=== PATIENT | female | born 1955 | race Caucasian/White ===

== ENCOUNTER → 2018-07-02 | Outpatient (CLI) | payer MEDICAID ==
[~2018-07-02] MED LIST: ALDACTONE25 MG PO; ALL DAY ALLERGY10 M3 PO; AMITRIPTYLINE H25 M2 PO; ANTACID325 MG PO; ASPIR 8181 MG PO; CARVEDILOL12.5 MG PO; COZAAR 50 MG TA50 M2 PO; CRESTOR10 MG PO; CRESTOR20 MG PO; ESTRADIOL 1 MG T1 M1 TOP; FLEXERIL PO; FLONASE 0.05%50 MCG NASAL; HYDROCODONE-AP1 EAC6 PO; LANTUS SC; LINZESS290 MCG PO; LIPITOR 20 MG T20 M1 PO; MOVANTIK25 MG PO; MULTI VITAMIN1 EACH PO; NEPHROCAPS SOFT1 CAP PO; NOVOLOG100 UNIT/1 SUBQ; OMEPRAZOLE20 M2 PO; OXYCODONE HCL 55 MG PO; OXYCODONE HCL15 MG PO; OXYCONTIN20 M1 PO; PERCOCET 10-321 EACH PO; PLAVIX 75 MG TA75 M1 PO; PROTONIX40 M2 PO; SINGULAIR 10 MG10 M1 PO; TIZANIDINE HCL4 MG PO; VITAMIN D1000 UNI1 PO; VITAMIN D350000 UNIT PO; ZANAFLEX4 M1 PO; ZOFRAN ODT4 MG PO
== END ==
LOC: M.ULTRA 09:56
DX: I65.23 Occlusion and stenosis of bilateral carotid arteries (principal); I10 Essential (primary) hypertension; Z88.0 Allergy status to penicillin

== ENCOUNTER 2018-07-29 13:20 | Observation (INO) | payer MEDICAID ==
[~2018-07-29] VITALS: Ht 152.4 cm; Wt 54.2 kg
[~2018-07-29 13:20] MED LIST changes: -CRESTOR20 MG PO; -PROTONIX40 M2 PO; -SINGULAIR 10 MG10 M1 PO; -TIZANIDINE HCL4 MG PO; -VITAMIN D350000 UNIT PO
[2018-07-29 13:22] VITALS: BP 162/77
[2018-07-29] MEDS ORDERED: CRESTOR20 MG PO (13:40)
[2018-07-29] MEDS ORDERED: PROTONIX40 M2 PO (13:46)
[2018-07-29] MEDS ORDERED: SINGULAIR 10 MG10 M1 PO (13:46)
[2018-07-29 13:49] LABS: ABSOLUTE BASOPHILS 0.1 thou/uL (0.0-0.2); ABSOLUTE EOSINOPHILS 0.2 thou/uL (0.0-0.7); ABSOLUTE LYMPHOCYTES 1.6 thou/uL (0.8-5.3); ABSOLUTE MONOCYTES 0.8 thou/uL (0.0-1.2); ABSOLUTE NEUTROPHILS 8.7 thou/uL (1.6-8.1); BASOPHILS 0.7 %; EOSINOPHILS 1.4 %; HEMATOCRIT 34.1 % (37.0-47.0); HEMOGLOBIN 11.2 gm/dL (12.0-15.0); LYMPHOCYTES 13.7 %; MCH 30.9 pg (26.0-34.0); MCHC 32.9 g/dL (28.0-37.0); MCV 93.8 fL (80.0-100.0); MONOCYTES 7.4 %; MPV 7.5 fl. (7.2-11.1); NUCLEATED RBCS 0 /100WBC; PLATELET COUNT* 308 thou/uL (150-400); POLYS 76.8 %; RBC 3.64 mil/uL (4.20-5.00); RDW-CV 14.2 % (10.5-14.5); WBC 11.4 thou/uL (4.0-11.0)
[2018-07-29 13:55] LABS: ANION GAP 5 mmol/L (7-16); BUN 38 mg/dL (7-18); CALCIUM 8.4 mg/dL (8.5-10.1); CHLORIDE 97 mmol/L (98-107); CO2 30 mmol/L (21-32); CREATININE 6.6 mg/dL (0.6-1.3); GLUCOSE 68 mg/dL (70-99); POTASSIUM 4.4 mmol/L (3.5-5.1); SODIUM 132 mmol/L (136-145)
[2018-07-29 14:02] LABS: ALBUMIN 1.7 g/dL (3.4-5.0); ALKALINE PHOSPHATASE 81 U/L (46-116); SGOT 15 U/L (15-37); SGPT 12 U/L (30-65); TOTAL BILIRUBIN 0.1 mg/dL (<0.1-1.0); TOTAL PROTEIN 5.9 g/dL (6.4-8.2); TROPONIN-I LEVEL <0.06 ng/mL (<0.06)
[2018-07-29 14:30] VITALS: BP 158/84
[2018-07-29 15:49] VITALS: BP 165/79
[2018-07-29 19:45] VITALS: BP 154/67
[2018-07-30] VITALS: BP 147/62
[2018-07-30 04:00] VITALS: BP 163/47
[2018-07-30 07:28] LABS: URINE BILIRUBIN NEGATIVE (Negative); URINE BLOOD NEGATIVE (Negative); URINE CLARITY CLEAR; URINE COLOR YELLOW; URINE GLUCOSE-RANDOM 2+ (Negative); URINE KETONES NEGATIVE (Negative); URINE LEUKOCYTES-REFLEX NEGATIVE (Negative); URINE NITRITE-REFLEX NEGATIVE (Negative); URINE PROTEIN 3+ (Negative); URINE UROBILINOGEN 0.2 E.U./dl (0.2-1.0)
[2018-07-30 08:00] VITALS: BP 176/81
[2018-07-30 11:38] VITALS: BP 176/84
[2018-07-30 12:49] VITALS: BP 177/56
[2018-07-30 15:00] VITALS: BP 176/84
--- NOTE | 2018-07-30 17:54 | EKG ---
[place] [address] ELECTROCARDIOGRAM REPORT Name: AUBREE ECKERT Room: [address] M.R.#: [id number] Admission: 07/29/18 Attend Phys: Bernardo Guzman Discharge: Date of : 57 Report #: [id number] THIS REPORT FOR: //name// [facility] ED Test Date: 2018-07-29 Test Time: 14:03:09 Pat Name: AUBREE ECKERT Department: Room: [facility] Gender: F Screen Roller: [facility] : 1955 Requested By: Xu Horta Order Number: [id number] MD: Zachary Awad Measurements Intervals [place] Rate: 63 P: 37 [place]: 191 QRS: 15 QRSD: 110 T: 51 QT: 459 QTc: 470 Interpretive Statements Sinus rhythm Compared to ECG 08/02/2016 15:54:58 Left ventricular hypertrophy now present Electronically Signed On 07-30-2018 17:54:19 CDT by Zachary Awad [email or web address] <ELECTRONICALLY SIGNED> By: Zachary Awad MD, [facility] 07/30/18 1754 1403 02 Zachary Awad MD, FAC /EPI
--- NOTE | 2018-07-30 17:57 | EKG ---
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
--- NOTE | 2018-07-31 10:29 | CON ---
[address] [address] CONSULTATION Name: AUBREE ECKERT Room: [address] Emmanuel Arroyo#: [id number] Admission: 07/29/18 Attend Phys: Bernardo Guzman Discharge: 07/30/18 Date of : 57 Report #: [id number] THIS REPORT FOR: //name// CC: Juan M Kathleen CONSULTING PHYSICIAN: Franc Kathleen DO REASON FOR CONSULTATION: End-stage kidney disease. HISTORY OF PRESENT ILLNESS: A 63-year-old female admitted with a syncopal episode in the setting of hyperglycemia. She is on peritoneal dialysis, dialyzes every night under the care of Dr. Aldana. She has been on peritoneal dialysis since April. No history of peritonitis. She is currently not on the transplant list. She denies any constipation. Her peritoneal dialysis at home has been going well. She usually dialyzes for 9 hours at night and does 5 exchanges. She is hoping to go home soon. REVIEW OF SYSTEMS: Constitutional, psych, heme, eyes, ENT, respiratory, cardiac, GI, , endocrine, all negative except as documented above. PAST MEDICAL HISTORY: End-stage kidney disease, diabetes type 2, hypertension, osteoporosis, history of bilateral fem-pop in 2002, cataracts, right hip surgery. FAMILY HISTORY: Positive for diabetes. SOCIAL HISTORY: Former smoker. PHYSICAL EXAMINATION: VITAL SIGNS: Blood pressure is 163/47, pulse 79, temperature 36.9. GENERAL: No acute distress. EYES: Extraocular movements intact. EARS: Externally normal. CARDIOVASCULAR: Regular rate. LUNGS: No crackles. ABDOMEN: Soft, nontender. PD catheter secured without any tenderness around the exit site. No rebound or guarding. LYMPHATICS: No significant pitting edema. PSYCHIATRIC: Awake, alert, oriented. LABORATORY DATA: White cell count 9.4, hemoglobin 11.2, platelets 308. Sodium 132, potassium 4.4, chloride 97, bicarbonate 30, BUN 38, creatinine 6.6, glucose 68, calcium 8.4, albumin 1.7. ASSESSMENT: 1. End-stage kidney disease, on peritoneal dialysis [place] [address] CONSULTATION Name: AUBREE ECKERT Room: [address] Dina#: [id number] Admission: 07/29/18 Attend Phys: Bernardo Guzman Discharge: 07/30/18 Date of : 57 Report #: [id number] Aldana. 2. Hyponatremia. 3. Severe hypoalbuminemia. 4. Diabetes. 5. History of hypertension. PLAN: 1. No dietary protein restriction. 2. She did not receive her peritoneal dialysis last night. Should she remains inpatient, we will resume her peritoneal dialysis tonight. We will use her chronic orders. We will adjust dextrose if she needs more fluid removed, but we will monitor closely for the time being. 3. Should she discharge this evening, she can hook herself up to peritoneal dialysis tonight and follow up with her regular maintainer sewer and waterworks as an outpatient. We will follow closely while inpatient. Thank you for requesting my opinion in the care and management of this patient. <ELECTRONICALLY SIGNED> By: Aydee Sands MD 07/31/18 1029 1028 [id number] Sands MD /nt
[2018-07-31 15:34] LABS: SQUAMOUS 0-3 Few /LPF (0-3); URINE RBC 0-2 Rare /HPF (0-2)
[2018-07-31 15:35] LABS: CRYSTALS None Seen /LPF (None Seen); FINE GRANULAR CASTS 0-3 Few /LPF (None Seen)
[2018-07-31 15:36] LABS: MUCUS 0-3 Light strn/LPF (None Seen)
[2018-07-31 15:45] LABS: URINE WBC-REFLEX 0-5 Rare /HPF (0-5)
== END 2018-07-30 16:00 | disposition home or self-care (01) ==
LOC: M.ERS 13:20 → M.2W 15:27 → M.TBA-ER 15:27 → M.2W 15:27
PROVIDERS: Emergency Medicine; ADMIT Internal Medicine
DX: E11.649 Type 2 diabetes mellitus with hypoglycemia without coma (principal); I12.0 Hypertensive chronic kidney disease with stage 5 chronic kidney disease or end stage renal disease; E11.22 Type 2 diabetes mellitus with diabetic chronic kidney disease; N18.5 Chronic kidney disease, stage 5; R55 Syncope and collapse; E86.0 Dehydration; R19.7 Diarrhea, unspecified; M81.0 Age-related osteoporosis without current pathological fracture; Z87.891 Personal history of nicotine dependence; Z86.718 Personal history of other venous thrombosis and embolism; Z98.890 Other specified postprocedural states; Z79.4 Long term (current) use of insulin; Z99.2 Dependence on renal dialysis

== ENCOUNTER 2018-10-09 12:51 | Emergency (ER) | payer MEDICAID ==
[~2018-10-09] VITALS: Ht 152.4 cm; Wt 52.6 kg
[~2018-10-09 12:51] MED LIST changes: +CRESTOR20 MG PO; +PROTONIX40 M2 PO; +SINGULAIR 10 MG10 M1 PO
[2018-10-09] MEDS ORDERED: VITAMIN D350000 UNIT PO (13:02)
[2018-10-09 13:39] LABS: HEMATOCRIT 23.5 % (37.0-47.0); HEMOGLOBIN 7.7 gm/dL (12.0-15.0); MCH 31.6 pg (26.0-34.0); MCHC 32.9 g/dL (28.0-37.0); MPV 7.4 fl. (7.2-11.1); NUCLEATED RBCS 0 /100WBC; PLATELET COUNT* 301 thou/uL (150-400); RBC 2.45 mil/uL (4.20-5.00); RDW-CV 15.1 % (10.5-14.5); WBC 15.6 thou/uL (4.0-11.0)
[2018-10-09 13:49] LABS: CALCIUM 8.3 mg/dL (8.5-10.1); CREATININE 7.9 mg/dL (0.6-1.3)
[2018-10-09 13:53] LABS: ALBUMIN 2.2 g/dL (3.4-5.0); TOTAL BILIRUBIN 0.4 mg/dL (<0.1-1.0); TOTAL PROTEIN 6.2 g/dL (6.4-8.2)
[2018-10-09 14:02] LABS: URINE BILIRUBIN NEGATIVE (Negative); URINE BLOOD 1+ (Negative); URINE CLARITY CLEAR; URINE COLOR YELLOW; URINE GLUCOSE-RANDOM 1+ (Negative); URINE KETONES NEGATIVE (Negative); URINE LEUKOCYTES-REFLEX NEGATIVE (Negative); URINE NITRITE-REFLEX NEGATIVE (Negative); URINE PROTEIN 3+ (Negative); URINE UROBILINOGEN 0.2 E.U./dl (0.2-1.0)
[2018-10-09 14:07] LABS: SQUAMOUS 0-3 Few /LPF (0-3); URINE WBC-REFLEX 0-5 Rare /HPF (0-5)
[2018-10-09 14:08] LABS: BACTERIA-REFLEX None Seen /HPF (None Seen); CASTS None Seen /LPF (None Seen); CRYSTALS None Seen /LPF (None Seen); URINE RBC 0-2 Rare /HPF (0-2)
[2018-10-09 14:12] LABS: ABSOLUTE EOSINOPHILS 0.6 thou/uL (0.0-0.7); ABSOLUTE LYMPHOCYTES 1.6 thou/uL (0.8-5.3); ABSOLUTE MONOCYTES 0.2 thou/uL (0.0-1.2); ABSOLUTE NEUTROPHILS 13.3 thou/uL (1.6-8.1); PLATELET ESTIMATE ADEQUATE
[2018-10-09 15:28] VITALS: BP 177/84
== END 2018-10-09 15:29 | disposition home or self-care (01) ==
LOC: M.ERS 12:51
PROVIDERS: Physician Assistant
DX: R19.7 Diarrhea, unspecified (principal); R10.31 Right lower quadrant pain; M81.0 Age-related osteoporosis without current pathological fracture; I12.0 Hypertensive chronic kidney disease with stage 5 chronic kidney disease or end stage renal disease; E11.22 Type 2 diabetes mellitus with diabetic chronic kidney disease; N18.5 Chronic kidney disease, stage 5; F17.210 Nicotine dependence, cigarettes, uncomplicated; Z99.2 Dependence on renal dialysis; Z79.4 Long term (current) use of insulin; Z86.718 Personal history of other venous thrombosis and embolism; Z88.0 Allergy status to penicillin; Z88.6 Allergy status to analgesic agent

== ENCOUNTER 2018-10-10 22:28 | Inpatient (IN) | payer MEDICAID ==
[~2018-10-10] VITALS: Ht 152.4 cm; Wt 58.0 kg
[~2018-10-10 22:28] MED LIST changes: +VITAMIN D350000 UNIT PO
[2018-10-10 22:33] VITALS: BP 187/92
--- NOTE | 2018-10-10 23:04 | NUR ---
PER DR. DOMINGUEZ REQUEST- PULL 2 MG DILAUDID, GIVE 1MG BUT DO NOT WASTE 2ND MG YET INCASE PT NEEDS REPEAT DOSE.
[2018-10-10 23:10] LABS: ANION GAP 18 mmol/L (7-16); BUN 62 mg/dL (7-18); CALCIUM 7.9 mg/dL (8.5-10.1); CHLORIDE 94 mmol/L (98-107); CO2 16 mmol/L (21-32); GLUCOSE 392 mg/dL (70-99); POTASSIUM 5.1 mmol/L (3.5-5.1); SODIUM 128 mmol/L (136-145)
[2018-10-10 23:13] LABS: PROTIME 9.9 Seconds (9.20-11.50)
[2018-10-10 23:21] LABS: ALBUMIN 2.3 g/dL (3.4-5.0); ALKALINE PHOSPHATASE 88 U/L (46-116); NT-PRO BRAIN NAT PEPTIDE 32492 pg/mL (<300); SGOT 14 U/L (15-37); SGPT 13 U/L (30-65); TOTAL BILIRUBIN 0.3 mg/dL (<0.1-1.0); TOTAL PROTEIN 6.7 g/dL (6.4-8.2); TROPONIN-I LEVEL <0.06 ng/mL (<0.06)
[2018-10-10 23:22] LABS: ABSOLUTE BASOPHILS 0.1 thou/uL (0.0-0.2); ABSOLUTE EOSINOPHILS 0.1 thou/uL (0.0-0.7); ABSOLUTE LYMPHOCYTES 1.3 thou/uL (0.8-5.3); ABSOLUTE MONOCYTES 0.8 thou/uL (0.0-1.2); ABSOLUTE NEUTROPHILS 14.8 thou/uL (1.6-8.1); BASOPHILS 0.3 %; EOSINOPHILS 0.8 %; HEMATOCRIT 22.9 % (37.0-47.0); HEMOGLOBIN 7.2 gm/dL (12.0-15.0); LYMPHOCYTES 7.8 %; MCHC 31.7 g/dL (28.0-37.0); MCV 97.8 fL (80.0-100.0); MONOCYTES 4.8 %; MPV 8.2 fl. (7.2-11.1); NUCLEATED RBCS 0 /100WBC; PLATELET COUNT* 312 thou/uL (150-400); POLYS 86.3 %; RBC 2.34 mil/uL (4.20-5.00); RDW-CV 15.4 % (10.5-14.5); WBC 17.1 thou/uL (4.0-11.0)
[2018-10-11 02:55] VITALS: BP 146/70
[2018-10-11 03:30] VITALS: BP 129/61
[2018-10-11] MEDS ORDERED: TIZANIDINE HCL4 MG PO (04:51)
--- NOTE | 2018-10-11 05:02 | NUR ---
RECEIVED REPORT FROM FORGING OPERATOR ANJELICA AT 0251. PT ARRIVED TO UNIT AT 0315. PT ON DOOR TO DOOR SALESPERSON TRACING SINUS RHYTHM. NURSING ASSESSMENT COMPLETED. PT ON 2L NC, BS 457. DR. ABRAHAM NOTIFIED, NEW ORDER RECEIVED. HOURLY ROUNDING COMPLETED. FALL PRECAUTIONS IN PLACE. CALL LIGHT WITHIN REACH. NEGATIVE SEPSIS SCREEN AT 0400.
[2018-10-11 10:00] VITALS: BP 148/67
[2018-10-11 11:20] LABS: URINE BILIRUBIN NEGATIVE (Negative); URINE BLOOD TRACE (Negative); URINE CLARITY CLEAR; URINE COLOR YELLOW; URINE GLUCOSE-RANDOM 2+ (Negative); URINE KETONES NEGATIVE (Negative); URINE LEUKOCYTES-REFLEX NEGATIVE (Negative); URINE NITRITE-REFLEX NEGATIVE (Negative); URINE PROTEIN 3+ (Negative); URINE UROBILINOGEN 0.2 E.U./dl (0.2-1.0)
[2018-10-11 11:33] LABS: BACTERIA-REFLEX 1-9 Few /HPF (None Seen); HYALINE CASTS 0-3 Few /LPF (None Seen); SQUAMOUS >10 Many /LPF (0-3)
[2018-10-11 11:37] LABS: CRYSTALS None Seen /LPF (None Seen); MUCUS None Seen strn/LPF (None Seen); URINE RBC 0-2 Rare /HPF (0-2); URINE WBC-REFLEX 0-5 Rare /HPF (0-5)
[2018-10-11 12:00] VITALS: BP 151/68
[2018-10-11 16:00] VITALS: BP 185/86
--- NOTE | 2018-10-11 18:54 | NUR ---
ASSUMED PT CARE AT 0700 PT IS ALERT AND ORIENTED X 4 PT C/O PAIN PAGED PHYSICIAN FOR ORDERS FOR PAIN MEDS OBTAINED ORDERS GAVE PT PO PAIN MEDS WHICH HELP PT, PT ABDOMEN DISTENDED AWAITING NEPHROLOGY, PT IS SR ON THE MONITOR, NEPHROLOGY SEES PT OBTAIN ORDERS FOR PERITNEAL DIALYSIS WITH ANTIBIOTICS ADDED TO FLUID PT HAD DIALYSIS NURSE WILL BE BACK THIS EVENING TO DRAIN PT CATHETER SENT PT FLUID FROM ORIGINAL DRAIN TO LAB, CRITICAL TROPONIN CALLED TO THIS NURSE WHO NOTIFIED PHYSICIAN AND SENIOR CONSTRUCTION PROJECT MANAGER WHO ORDERED FOR PT TO HAVE STRESS TEST SATURDAY, PT THIS EVENING C/O PAIN AND SOA ABDOMEN IS DISTENDED PT O2 SAT IS 97 ON 3L/NC GAVE PT FENTANYL AND OBTAINED EKG WHICH SHOWED ST, THIS NURSE NOTIFIED THAT PT IS VOMITING PAGED PHYSICIAN AND OBTAINED ORDER FOR ZOFRAN WHICH THIS NURSE GAVE WILL CONTINUE TO MONITOR
[2018-10-11 19:28] LABS: BF RBC <1000 /mm3; TOTAL CELL COUNT 103 /mm3
[2018-10-11 19:29] LABS: TOTAL VOLUME 2000 ml
[2018-10-11 19:30] LABS: CLARITY CLEAR; COLOR YELLOW
[2018-10-11 19:45] VITALS: BP 180/92
[2018-10-11 20:38] LABS: BF LYMPHOCYTES 24 %; BF MONOCYTES 18 %; BF POLYS 58 %; BF TISSUE 2 /100 WBC
[2018-10-11 20:40] LABS: SOURCE PERITONEAL
[2018-10-12] VITALS: BP 170/91
[2018-10-12 04:59] VITALS: BP 166/90
[2018-10-12 05:04] LABS: HEMATOCRIT 21.8 % (37.0-47.0); HEMOGLOBIN 7.2 gm/dL (12.0-15.0); MCH 31.7 pg (26.0-34.0); MCHC 32.8 g/dL (28.0-37.0); MCV 96.6 fL (80.0-100.0); MPV 8.2 fl. (7.2-11.1); NUCLEATED RBCS 0 /100WBC; PLATELET COUNT* 255 thou/uL (150-400); RBC 2.26 mil/uL (4.20-5.00); RDW-CV 15.8 % (10.5-14.5); WBC 15.6 thou/uL (4.0-11.0)
[2018-10-12 05:20] LABS: CALCIUM 7.8 mg/dL (8.5-10.1); CREATININE 7.2 mg/dL (0.6-1.3); MAGNESIUM 1.8 mg/dL (1.8-2.4); PHOSPHORUS* 7.1 mg/dL (2.5-4.9); POTASSIUM 4.7 mmol/L (3.5-5.1)
--- NOTE | 2018-10-12 05:22 | NUR ---
ASSUMED PT CARE AT 1930, PT IS A&OX4, PT C/O BACK AND ABD PAIN AT START OF SHIFT. PAIN THEN TURNED INTO 10/10 CHEST PAIN. PAIN MEDICATIONS GIVEN PER JAN. EKG OBTAINED, PT REFUSED NITRO DUE TO REBOUND HEADACHE. PT IS TRACING ST ON THE MONITOR, ON 3L NC. PT IS ON PERITONEAL DIALYSIS IN PLACE. PT STATES THAT DURING "FILL AND DWELL" PERIOD THE PAIN IS WORSE. PT IS ON A 1500 FLUID RESTRICTION THAT SHE IS COMPLIANT WITH. BED IN LOW POSITION, CALL LIGHT IN REACH, BED ALARM ON. YELLOW ARM BAND AND SOCKS IN PLACE. HOURLY ROUNDING COMPLETED FOR PT SAFETY.
[2018-10-12 05:24] LABS: ALKALINE PHOSPHATASE 78 U/L (46-116); ANION GAP 12 mmol/L (7-16); BUN 55 mg/dL (7-18); CALCIUM 7.7 mg/dL (8.5-10.1); CHLORIDE 95 mmol/L (98-107); CHOLESTEROL 118 mg/dL (<200); CO2 23 mmol/L (21-32); CREATININE 7.2 mg/dL (0.6-1.3); GLUCOSE 296 mg/dL (70-99); HDL CHOLESTEROL 61 mg/dL (>40); LDL CHOLESTEROL 27 mg/dL (<100); POTASSIUM 4.6 mmol/L (3.5-5.1); SGOT 17 U/L (15-37); SGPT 11 U/L (30-65); SODIUM 130 mmol/L (136-145); TC:HDL 1.9 Ratio (Not establshd); TOTAL BILIRUBIN 0.2 mg/dL (<0.1-1.0); TRIGLYCERIDE 153 mg/dL (<150); VLDL 31 mg/dL (<40)
[2018-10-12 05:35] LABS: SERUM ASSESSMENT Clear
[2018-10-12 08:07] LABS: ABSOLUTE LYMPHOCYTES 0.8 thou/uL (0.8-5.3); ABSOLUTE MONOCYTES 0.6 thou/uL (0.0-1.2); ABSOLUTE NEUTROPHILS 14.2 thou/uL (1.6-8.1)
[2018-10-12 08:08] LABS: HYPOCHROMASIA 2+; PLATELET ESTIMATE ADEQUATE
[2018-10-12 08:09] LABS: MACROCYTES 2+
[2018-10-12 08:45] VITALS: BP 155/70
--- NOTE | 2018-10-12 10:15 | EKG ---
[place] [address] ELECTROCARDIOGRAM REPORT Name: AUBREE ECKERT Room: [address] ADM IN M.R.#: [id number] Admission: 10/11/18 Attend Phys: Glendy Brown MD Discharge: Date of : 57 Report #: [id number] THIS REPORT FOR: //name// [facility] ED Test Date: 2018-10-10 Test Time: 22:48:15 Pat Name: AUBREE ECKERT Department: Room: [facility] Gender: F Integrated Marketing Specialist: : 1955 Requested By: Luiza Langley Order Number: [id number] MD: Zachary Awad Measurements Intervals [place] Rate: 85 P: 46 [place]: 178 QRS: 45 QRSD: 107 T: 11 QT: 446 QTc: 531 Interpretive Statements Sinus rhythm Probable left atrial enlargement Borderline ST depression, lateral leads Prolonged QT interval Compared to ECG 07/29/2018 19:56:26 ST (T wave) deviation now present Prolonged QT interval now present Electronically Signed On 10-12-2018 10:14:55 DAY CARE HOME MOTHER by Zachary Awad [email or web address] <ELECTRONICALLY SIGNED> By: Zachary Awad MD, FACC 10/12/18 1014 2248 2248 Zachary Awad MD, FAC /EPI
--- NOTE | 2018-10-12 10:21 | EKG ---
[place] [address] ELECTROCARDIOGRAM REPORT Name: AUBREE ECKERT Room: [address] ADM IN M.R.#: [id number] Admission: 10/11/18 Attend Phys: Glendy Brown MD Discharge: Date of : 57 Report #: [id number] THIS REPORT FOR: //name// [facility] Test Date: 2018-10-11 Test Time: 09:59:59 Pat Name: AUBREE ECKERT Department: Room: [address] Gender: F Artillery Specialist: : 1955 Requested By: Glendy Brown Order Number: [id number] Reading MD: Zachary Awad Measurements Intervals [place] Rate: 75 P: 37 PA: 178 QRS: 34 QRSD: 104 T: 111 QT: 428 QTc: 479 Interpretive Statements Sinus rhythm Probable left atrial enlargement Borderline repolarization abnormality Compared to ECG 07/29/2018 19:56:26 No significant changes Electronically Signed On 10-12-2018 10:20:45 INDUSTRIAL RELATIONS MANAGER by Zachary Awad [email or web address] <ELECTRONICALLY SIGNED> By: Zachary Awad MD, [facility] 10/12/18 1020 8 8 Zachary Awad MD, FACC /EPI
--- NOTE | 2018-10-12 10:23 | EKG ---
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 : 1955 Requested By: Terry Red Order Number: [id number] Clement MD: Zachary Awad Measurements Intervals [place] Rate: 101 P: 45 MT: 168 QRS: 65 QRSD: 108 T: -23 QT: 372 QTc: 483 Interpretive Statements Sinus tachycardia Left atrial enlargement Nonspecific repol abnormality, diffuse leads Baseline wander in lead(s) V2 Compared to ECG 07/29/2018 19:56:26 Early repolarization now present Sinus rhythm no longer present Electronically Signed On 10-12-2018 10:23:30 PIGMENT PUMPER by Zachary Awad [email or web address] <ELECTRONICALLY SIGNED> By: Zachary Awad MD, FACC 10/12/18 1023 1833 183 Zachary Awad MD, FACC /EPI
--- NOTE | 2018-10-12 10:24 | EKG ---
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: : 1955 Requested By: Glendy Brown Order Number: [id number] Clement MD: Zachary Awad Measurements Intervals [place] Rate: 106 P: 43 DE: 156 QRS: 47 QRSD: 111 T: -47 QT: 383 QTc: 509 Interpretive Statements Sinus tachycardia Probable left atrial enlargement LVH with secondary repolarization abnormality Prolonged QT interval Compared to ECG 07/29/2018 19:56:26 Left ventricular hypertrophy now present Early repolarization now present Prolonged QT interval now present Sinus rhythm no longer present Electronically Signed On 10-12-2018 10:24:22 GATE CUTTER by Zachary Awad [email or web address] <ELECTRONICALLY SIGNED> By: Zachary Awad MD, FACC 10/12/18 1024 21 21 Zachary Awad MD, FACC /EPI
--- NOTE | 2018-10-12 10:49 | CON ---
[address] [address] CONSULTATION Name: AUBREE ECKERT Room: [address] IN M.R.#: [id number] Admission: 10/11/18 Attend Phys: Glendy Brown MD Discharge: Date of : 57 Report #: [id number] THIS REPORT FOR: //name// CC: Juan M Brown DATE OF SERVICE: 10/11/2018 CARDIOLOGY CONSULTATION INDICATION: Elevated troponin and chest pain. HISTORY OF PRESENT ILLNESS: The patient is a pleasant 63-year-old white female with history of end-stage renal disease, on peritoneal dialysis. She was admitted to the hospital last night with acute shortness of breath. She had some midsternal chest discomfort in this setting. Her subsequent troponins were 0.4 and now 0.75. Her chest pain is resolved. She does make urine. After breathing treatments and supplemental oxygen, she is feeling better. Her chest pain has resolved. She has no prior history of coronary artery disease, although she does have a history of peripheral vascular disease with bilateral fem-pop surgeries in the early 1999s in [place]. She is no longer having issues with her peripheral vascular disease. She states the chest pain was worse after eating. There was no radiation of the discomfort. The pain was somewhat prolonged in nature. EKG shows sinus rhythm with nonspecific intraventricular conduction delay and some ST segment depression and T-wave inversion in the lateral leads. PAST MEDICAL HISTORY: 1. End-stage renal disease, on peritoneal dialysis. 2. Type 2 diabetes mellitus. 3. Hypertension. 4. Peripheral vascular disease. 5. Osteoporosis. 6. History of DVT. 7. Right hip surgery. 8. Back surgery x 3. FAMILY HISTORY: Noncontributory. SOCIAL HISTORY: The patient quit smoking 5 months ago. She does not drink alcohol. ALLERGIES: PENICILLIN AND MORPHINE. HOME MEDICATIONS: Elavil 100 mg daily, carvedilol 25 mg b.i.d., vitamin D [address] [place] [address] CONSULTATION Name: AUBREE ECKERT Room: [address] IN [facility].#: [id number] Admission: 10/11/18 Attend Phys: Glendy Brown MD Discharge: Date of : 57 Report #: [id number] units weekly, Plavix 75 mg daily, Flonase b.i.d., insulin q.a.c. and at bedtime, Singulair 10 mg at bedtime, multivitamin daily, Movantik 25 mg daily, oxycodone 15 mg q. 4 hours p.r.n., Protonix 40 mg b.i.d., Crestor 10 mg daily, spironolactone 25 mg daily. REVIEW OF SYSTEMS: A 14-point review of systems is positive for cough, bronchitis, chest pain, shortness of breath, murmur as a child, diabetes, thyroid disease, blood in stool, blood clots, DVTs, PENICILLIN allergy, depression, anxiety, arthritis, glasses and dentures. Otherwise, 14-point review of systems is unremarkable. PHYSICAL EXAMINATION: VITAL SIGNS: Blood pressure 129/61, pulse 72 and regular. GENERAL: This is an elderly female who is in no distress. Mood and affect appropriate. HEENT: Extraocular muscles intact. Mucous membranes moist. NECK: Shows no jugular venous distention. There are no carotid bruits. CHEST: Reveals clear breath sounds without wheezes or rales. CARDIOVASCULAR: Reveals a regular rhythm with normal S1 and S2. I do not appreciate gallop or murmur. ABDOMEN: Reveals a protuberant abdomen with positive bowel sounds. EXTREMITIES: Show no edema. SKIN: Warm and dry. Peripheral pulses diminished. LABORATORY DATA: A 12-lead EKG shows sinus rhythm with nonspecific intraventricular conduction delay. There is ST segment depression in the lateral leads. Labs are reviewed. Sodium 128, potassium 5.1, chloride 94, bicarbonate 16, BUN 62, creatinine 8.0, serum glucose 392. Troponin 0.75. NT-proBNP 32,492. White blood cell count 17.1, hemoglobin 7.2, platelet count 312,000. IMPRESSION AND RECOMMENDATIONS: 1. Elevated troponin, etiology not clear. The patient is presently asymptomatic, although she did have chest discomfort yesterday. This could represent non-ST elevation myocardial infarction. I would continue aspirin and Plavix at this time. Recommend noninvasive stress testing. Would proceed with invasive evaluation if she should have a high risk stress test. 2. Hyperlipidemia. Repeat fasting lipid profile at this time. Continue current dose of Crestor and adjust as needed. 3. Hypertension. Blood pressure adequately controlled presently. 4. End-stage renal disease, per Nephrology. <ELECTRONICALLY SIGNED> By: Zachary Awad MD, FACC 10/12/18 1049 1106 1939Zachary Awad MD, FACC /nt
[2018-10-12 12:00] VITALS: BP 170/70
[2018-10-12 16:47] VITALS: BP 150/82
--- NOTE | 2018-10-12 18:33 | NUR ---
RECEIVED REPORT AND ASSUMED CARE AT 0700. VSS. CARDIAC MONITORING IN PLACE. PT REPORTED PAIN, PRN MEDICATION ADMIN PER ORDERS. ASSESSMENT COMPLETED CHARTED. CALL LIGHT WITHIN REACH, BED ALARM ON, BED LOCKED IN LOWEST POSITION. PT UP WITH ASSIST, ON 3L NC. DISCUSSED PLAN OF CARE WITH PT. VERBALOZED UNDERSTANDING. HOURLY ROUNDING COMPLETED AND ALL NEEDS MET. NURSING WILL CONTINUE TO MONITOR
[2018-10-12 20:30] VITALS: BP 179/90
[2018-10-13] VITALS: BP 106/58
[2018-10-13 04:00] VITALS: BP 121/75
--- NOTE | 2018-10-13 05:16 | NUR ---
PT UNIT CONTROL CLERK IN PLACE. RUNNING NSR WITH O2 SAT IN 90S ON 3L VIA NC. PT REPORTS PAIN IN ABDOMEN, MEDICATION GIVEN CHARTED. NPO STATUS STARTED AT 0000. PT ON PERITONEAL DIALYSIS. PT ON CONTACT PRECAUTIONS FOR SUSPECTED CDIF. HOURLY ROUNDING COMPLETED AND FALL RISK PRECAUTIONS IN PLACE. CALL LIGHT IN REACH. WILL CONTINUE TO MONITOR.
[2018-10-13 06:07] LABS: HEMATOCRIT 20.3 % (37.0-47.0); MCH 31.9 pg (26.0-34.0); MCHC 33.1 g/dL (28.0-37.0); MCV 96.2 fL (80.0-100.0); MPV 8.4 fl. (7.2-11.1); RBC 2.11 mil/uL (4.20-5.00); RDW-CV 16.5 % (10.5-14.5); WBC 11.4 thou/uL (4.0-11.0)
[2018-10-13 06:28] LABS: % SATURATION 29 % (20-39); IRON 47 ug/dL (50-175)
[2018-10-13 06:31] LABS: HEMOGLOBIN 6.7 gm/dL (12.0-15.0)
[2018-10-13 06:36] LABS: ALBUMIN 1.9 g/dL (3.4-5.0); CALCIUM 7.8 mg/dL (8.5-10.1); CREATININE 6.7 mg/dL (0.6-1.3); MAGNESIUM 1.9 mg/dL (1.8-2.4); PHOSPHORUS* 6.7 mg/dL (2.5-4.9); POTASSIUM 4.3 mmol/L (3.5-5.1)
--- NOTE | 2018-10-13 09:54 | NUR ---
PT OFF UNIT AT 0844 TO NUC MED
[2018-10-13 11:10] VITALS: BP 171/92
[2018-10-13 13:05] VITALS: BP 152/85; BP 160/82; BP 173/88
[2018-10-13 14:32] LABS: BF RBC 1031 /mm3; TOTAL CELL COUNT 194 /mm3
[2018-10-13 14:33] LABS: CLARITY CLEAR; COLOR COLORLESS
[2018-10-13 14:39] LABS: SOURCE ABDOMINAL
[2018-10-13 14:40] LABS: TOTAL VOLUME 15 ml
--- NOTE | 2018-10-13 15:19 | NUR ---
Pt is A&O. Resides at home with her . Pt currently has a broken hand, but states that she and her normally share household responsibiliities. Pt has a walker, shower chair, cane, wc and power wc that she can use as needed. Pt is currently on peritoneal dialysis 7days/week for 9hrs/day. No home o2. Hx of HH in 2015. Hx of acute rehab at [facility]. Goal is to return home at [place], Pt would like a nurse for HH. Following.
[2018-10-13 15:28] LABS: BF LYMPHOCYTES 21 %; BF MONOCYTES 37 %; BF POLYS 42 %; BF TISSUE 1 /100 WBC
--- NOTE | 2018-10-13 16:24 | CARDNUC ---
[place] [address] CARDIAC NUCLEAR IMAGING REPORT Name: AUBREE ECKERT Room: [address] IN [facility]#: [id number] Admission: 10/11/18 Attend Phys: Glendy Brown MD Discharge: Date of : 57 Date of Service: 10/13/18 1623 Report #: [id number] THIS REPORT FOR: //name// APPROVED REPORT Imaging Protocol: Rest Tc-99m/Stress Tc-99m 1 day Study performed: 10/11/2018 11:08:00 Indication: Chest pain, Dyspnea Patient Location: In-Patient Room #: 212 Stress Tech: Anitra Bauman Stress Nurse: Grecia Fall RN NM Tech:WILFRED Leyva Ht: 5 ft 0 in Wt: 127 lbs BSA: 1.54 m2 BMI: 24.80 Medical History Medical History: Angina, ESRD, , HTN, Hyperlipidemia, PVD, SOB, Diabetes, Former Smoker Medications: Carvedilol, Plavix, Spironolactone, Atorvastatin, Hydralazine Allergies: Penicillins Cardiac Risk Factors: Age, DM, FHX of CAD, HTN,, Hyperlipidemia, SOB, Tobacco History (Former), PVD Previous Cardiac Procedures: None Pretest Chest Pain Characteristics: No chest pain Exercise History: Indeterminate Physical Disabilities: Hips, Legs, Generalized weakness, Peritoneal Dialysis Meds Held (24 hrs): Carvedilol Resting Data Rest SPECT myocardial perfusion imaging was performed in supine position 30 minutes following the intravenous injection of 10.8 mCi of Tc-99m Sestamibi. Time of rest injection: 754 Date: 10/13/2018 Time of rest imagin The images were gated to evaluate regional wall motion and calculate left ventricular ejection fraction. Administration Route: IV Administration Site: Right [place] [address] CARDIAC NUCLEAR IMAGING REPORT Name: AUBREE ECKERT Room: [address] IN [facility].#: [id number] Admission: 10/11/18 Attend Phys: Glendy Brown MD Discharge: Date of : 57 Date of Service: 10/13/18 1623 Report #: [id number] Pharmacologic stress test was performed by injecting Regadenoson 0.4 mg IV push over 10-15 seconds immediately followed by the intravenous injection of 34.3 mCi of Tc-99m Sestamibi. Time of stress injection: 944 Date: 10/13/2018 Time of stress imagin Administration Route: IV Administration Site: Right Wrist Gated Stress SPECT was performed 40 minutes after stress injection. The images were gated to evaluate regional wall motion and calculate left ventricular ejection fraction. Stress only was performed in the Supine position. Stress Test Details Stress Test: Pharmacologic stress testing performed using 0.4 mg of regadenoson per 5 mL given IV over 10 seconds. Reason for pharmacologic stress test: physical limitation, peritoneal dialysis, leg and hip weakness.. HR Max Heart Rate (APMHR): 158 bpm Resting HR: 115 bpm Target HR (85% APMHR): 134 bpm Max HR Achieved: 121 bpm % of APMHR: 76 Recovery HR: 119 bpm HR response to stress: Normal HR response to stress BP Resting BP: 155/87 mmHg Recovery BP: 156/78 mmHg BP response to stress: Normal blood pressure response to stress. ECG Resting ECG: Sinus Rhythm st depression baseline Stress ECG: Sinus Rhythm ST Change: Upsloping ST depression Maximum ST Deviation: 0.5 mm Recovery ECG: Sinus Rhythm Clinical Reason for Termination: Completed protocol Stress Symptoms: Dizziness, Lightheaded, Weakness Exercise duration: 0 min 0 sec Exercise capacity: 1.00 [place] [address] CARDIAC NUCLEAR IMAGING REPORT Name: AUBREE ECKERT Room: [address]#: [id number] Admission: 10/11/18 Attend Phys: Glendy Brown MD Discharge: Date of : 57 Date of Service: 10/13/18 1623 Report #: [id number] 63 year old female, inpatient, presented from Telemetry unit. Patient reported generalized weakness, legs and hip problems per patient statement. Patient a peritoneal dialysis patient. Patient tolerated sitting lexiscan well with minimal side effects listed above. Tachycardic on EKG. Side effects resolved with caffeine. Recovery unremarkable. C-Diff precautions maintained. Patient escorted with staff via wheelchair to [facility] for images. Patient stable at that time with no complaints. Stress ECG Conclusion negative Study Quality Study: Fair Artifact: No artifact Lung Uptake: Normal Study Data At rest, the left ventricular ejection fraction was 44%.. Post stress, the left ventricular ejection was 52%.. SSS: 9 SRS: 3 SDS: 6 TID = 1.04. Perfusion Review of SPECT images reveals a patchy, inhomongenous uptake of tracer in all segments, but no defined reversible defects. Prone images show some improvement. Wall Motion normal Nuclear Conclusion ECG Findings: non-diagnostic Clinical Findings: negative for ischemia Nuclear Findings: negative for ischemia Exercise Capacity: not assessed Left Ventricular Function: abnormal Risk Study: low Negative perfusion stress test for ischemia or infarct, mild resting LV dysfunction, an echo may [place] [address] CARDIAC NUCLEAR IMAGING REPORT Name: AUBREE ECKERT Room: [address] IN M.R.#: [id number] Admission: 10/11/18 Attend Phys: Glendy Brown MD Discharge: Date of : 57 Date of Service: 10/13/18 1623 Report #: [id number] <Conclusion> negative <ELECTRONICALLY SIGNED> By: Paul Barrett MD, FACC 10/13/181622 22 22 Paul Barrett MD, FACC /INF
--- NOTE | 2018-10-13 17:07 | NUR ---
PT HAS HAD NO STOOL SINCE ADMISSION
--- NOTE | 2018-10-13 17:34 | NUR ---
PT STATES THAT EPIGASTRIC/GAS PAIN SHE WAS HAVING ALL MORNING IS NOW RELIEVED AFTER BLOOD TRANSFUSION
--- NOTE | 2018-10-13 17:35 | 2DMMODE ---
[place] [address] 2 D/M-MODE ECHOCARDIOGRAM Name: AUBREE ECKERT Room: [address] IN [facility]#: [id number] Admission: 10/11/18 Attend Phys: Glendy Brown MD Discharge: Date of : 57 Date of Service: 10/13/18 1735 Report #: [id number] THIS REPORT FOR: //name// APPROVED REPORT Study performed: 10/13/2018 15:13:25 EXAM: Comprehensive 2D, Doppler, and color-flow Echocardiogram Patient Location: In-Patient Room #: [facility] Status: routine BSA: 1.54 HR: 94 bpm BP: 121/75 mmHg Rhythm: NSR Other Information Study Quality: Good Indications Abnormal ECG 2D Dimensions IVSd: 10.66 (7-11mm) LVOT Diam: 17.24 (18-24mm) LVDd: 44.95 mm PWd: 10.35 (7-11mm) Ascending Ao: 24.63 (22-36mm) LVDs: 30.86 (25-40mm) Aortic Root: 24.25 mm Volumes Left Atrial Volume (Systole) LA ESV Index: 42.10 mL/m2 Aortic Valve AoV Peak Cesar.: 1.61 m/s AO Peak Gr.: 10.38 mmHg LVOT Max P.18 mmHg AO Mean Gr.: 5.96 mmHg LVOT Mean P.20 mmHg LVOT Max V: 0.74 m/s AO V2 VTI: 31.73 cm LVOT Mean V: 0.51 m/s KINSEY (VTI): 1.09 cm2 LVOT V1 VTI: 14.79 cm Mitral Valve E/A Ratio: 1.05 MV Decel. Time: 125.59 ms MV E Max Cesar.: 1.66 m/[place] [address] 2 D/M-MODE ECHOCARDIOGRAM Name: AUBREE ECKERT Room: [address] IN ..#: [id number] Admission: 10/11/18 Attend Phys: Glendy Brown MD Discharge: Date of : 57 Date of Service: 10/13/18 1735 Report #: [id number] MV PHT: 36.42 ms MVA (PHT): 6.04 cm2 TDI E/Lateral E': 23.71 E/Medial E': 23.71 Medial E' Cesar.: 0.07 m/s Lateral E' Cesar.: 0.07 m/s Tricuspid Valve RAP Estimate: 5.00 mmHg TR Peak Gr.: 43.06 mmHg RVSP: 48.00 mmHg PA Pressure: 48.00 mmHg Left Ventricle The left ventricle is normal size. There is normal LV segmental wall motion. There is normal left ventricular wall thickness. Left ventricular systolic function is normal. The left ventricular ejection fraction is within the normal range. LVEF is 50-55%. The left ventricular diastolic function is normal. Right Ventricle The right ventricle is normal size. The right ventricular systolic function is normal. Atria Left atrium is moderately dilated. The right atrium size is normal. Aortic Valve Moderate aortic valve sclerosis. Trace aortic regurgitation. Mild to moderate aortic stenosis. Mitral Valve Moderate mitral annular calcification. Moderate to severe mitral regurgitation No evidence of mitral valve stenosis. Tricuspid Valve The tricuspid valve is normal in structure. Trace tricuspid regurgitation. Moderate pulmonary hypertension. Pulmonic Valve The pulmonary valve is normal in structure. There is no pulmonic valvular regurgitation. Great Vessels The aortic root is normal in size. IVC is normal [place] [address] 2 D/M-MODE ECHOCARDIOGRAM Name: AUBREE ECKERT Room: [address]#: [id number] Admission: 10/11/18 Attend Phys: Glendy Brown MD Discharge: Date of : 57 Date of Service: 10/13/18 1735 Report #: [id number] collapses >50% with inspiration. Pericardium There is no pericardial effusion. <Conclusion> The left ventricle is normal size. There is normal left ventricular wall thickness. Mild to moderate aortic stenosis. Moderate mitral annular calcification. Moderate to severe mitral regurgitation No evidence of mitral valve stenosis. The tricuspid valve is normal in structure. IVC is normal in size and collapses >50% with inspiration. There is no pericardial effusion. There is normal LV segmental wall motion. Left ventricular systolic function is normal. The left ventricular ejection fraction is within the normal range. LVEF is 50-55%. The left ventricular diastolic function is normal. The right ventricle is normal size. Left atrium is moderately dilated. <ELECTRONICALLY SIGNED> By: Adolfo Cordero MD, FACC 10/13/18 1735 1735 1735 Adolfo Cordero MD, FACC /INF
[2018-10-13 17:39] LABS: HEMATOCRIT 25.9 % (37.0-47.0); HEMOGLOBIN 8.6 gm/dL (12.0-15.0)
[2018-10-13 20:00] VITALS: BP 154/82
--- NOTE | 2018-10-13 23:03 | NUR ---
PT ALERT ORIETNED. PT RATED PAIN 8/10 ACROSS UPPER ABD. PAIN MEDICATION GIVEN. HOOKED UP TO PD MACHINE. RN INSTRUCTED TO HIT THE WORD NEXT ON THE SCREEN AT MN. ON RA WITH O2 SAT 92% TELEMETRY SHOWS SR.
[2018-10-14] VITALS: BP 168/82
--- NOTE | 2018-10-14 02:26 | NUR ---
PM BLOOD GLUCOSE 85. PT TOOK GLUCOSE AND BROUGHT IT UP TO 134. SHE REFUSED PM INSULIN.
[2018-10-14 04:00] VITALS: BP 180/88
[2018-10-14 05:28] LABS: HEMATOCRIT 29.2 % (37.0-47.0); HEMOGLOBIN 9.8 gm/dL (12.0-15.0); MCH 31.1 pg (26.0-34.0); MCHC 33.5 g/dL (28.0-37.0); MPV 8.9 fl. (7.2-11.1); RBC 3.14 mil/uL (4.20-5.00); RDW-CV 19.4 % (10.5-14.5); WBC 11.2 thou/uL (4.0-11.0)
[2018-10-14 06:11] LABS: ALBUMIN 1.9 g/dL (3.4-5.0); CALCIUM 8.4 mg/dL (8.5-10.1); CREATININE 6.5 mg/dL (0.6-1.3); MAGNESIUM 1.8 mg/dL (1.8-2.4); PHOSPHORUS* 6.1 mg/dL (2.5-4.9); POTASSIUM 4.1 mmol/L (3.5-5.1); TOTAL BILIRUBIN 0.3 mg/dL (<0.1-1.0); TOTAL PROTEIN 6.1 g/dL (6.4-8.2)
[2018-10-14 07:30] VITALS: BP 183/80
--- NOTE | 2018-10-14 10:07 | CON ---
[address] [address] CONSULTATION Name: AUBREE ECKERT Room: [address] IN M.R.#: [id number] Admission: 10/11/18 Attend Phys: Glendy Brown MD Discharge: Date of : 57 Report #: [id number] THIS REPORT FOR: //name// CC: Juan M Brown Nephrology Consultation CONSULTING PHYSICIAN: Dr. Brown REASON FOR CONSULTATION: End-stage kidney disease. HISTORY OF PRESENT ILLNESS: A 63-year-old female who was admitted with shortness of breath and abdominal discomfort and bloating. Her last normal peritoneal dialysis was done on Saturday. Because of the above complaint, she was having difficulty doing her dialysis. She tells me that her fluid has been very cloudy and brownish color as well. She denies any constipation. No nausea or vomiting. She appears to be comfortable at the present time. REVIEW OF SYSTEMS: Constitutional, psych, heme, eyes, ENT, respiratory, cardiac, GI, , endocrine all negative except as documented above. PAST MEDICAL AND SURGICAL HISTORY: End-stage kidney disease, diabetes type 2, hypertension, osteoporosis, history of bilateral fem-pop in 2002, history of cataracts, right hip surgery, osteoporosis, history of DVT. FAMILY HISTORY: Positive for diabetes. SOCIAL HISTORY: Former smoker. MEDICATIONS: Reviewed. PHYSICAL EXAMINATION: VITAL SIGNS: Blood pressure is 129/61, pulse 72, respirations 20, temperature 36.6. GENERAL: In no acute distress. EYES: Extraocular movements intact. EARS: Externally normal. CARDIOVASCULAR: Regular rate. LUNGS: Diminished breath sounds. ABDOMEN: Soft. Some vague tenderness. PD catheter exit site is clean, dry and intact without signs of acute infection. MUSCULOSKELETAL: Nontender. PSYCHIATRIC: Awake, alert. LABORATORY DATA: White cell count 17.1, hemoglobin 7.2, platelets 312. Sodium 128, potassium 5.1, chloride 94, bicarbonate 16, BUN 62, creatinine 8, [place] [address] CONSULTATION Name: AUBREE ECKERT Room: [address] IN [facility].#: [id number] Admission: 10/11/18 Attend Phys: Glendy Brown MD Discharge: Date of : 57 Report #: [id number], calcium 7.9, albumin 2.3. ASSESSMENT: 1. End-stage kidney disease, on peritoneal dialysis, followed by Dr. Aldana as an outpatient. CT abdomen noted. 2. Pulmonary edema and volume overload in the setting of missed peritoneal dialysis session. 3. Abdominal pain, but discolored peritoneal dialysis fluid concerning for possible peritonitis. 4. Anemia. 5. Hyponatremia secondary to volume overload. 6. Metabolic acidosis. 7. Hypoalbuminemia with an albumin of 2.3. 8. Insulin-dependent diabetes. 9. Hypertension. 10. Osteoporosis. 11. Peripheral vascular disease with a history of bilateral fem-pop bypass in 2002. 12. History of deep venous thrombosis. PLAN: 1. We will check cell count, Gram stain and culture. 2. We will administer EPO. 3. We will give a dose of Lasix. 4. Fluid restrict 1.5 liters per day. 5. We will try to pull fluid with peritoneal dialysis and set that up for tonight. 6. We will administer empiric antibiotics with the first bag of peritoneal dialysis tonight and allow it to dwell until cell count comes back. 7. Control blood sugars to help with ultrafiltration with peritoneal dialysis. Thank you for requesting my opinion in the care and management of this patient. <ELECTRONICALLY SIGNED> By: Aydee Sands MD 10/14/18 1007 1337 [id number] Sands MD /nt
[2018-10-14 11:56] VITALS: BP 133/99
--- NOTE | 2018-10-14 12:51 | NUR ---
RECEIVED PT CARE 0700. SHE IS ALERT/ORIENTED X4. FORGETFUL AT TIMES. BLOOD PRESSURE ELEVATED THIS AM 183/80, PRN HYDRALAZINE GIVEN. SHE DENIES ANY SOA. O2 SAT 93% ON ROOM AIR. C/O ABDOMINAL PAIN. PRN PAIN MEDICATIONS GIVEN WITH PARTIAL RELIEF. PERITONEAL DIALYSIS COMPLETED, PD NURSE NOTIFIED AND ON FLOOR TO ASSIST PATIENT. AM ASSESSMENT CHARTED. MEDS GIVEN PER JAN. NOTIFIED GI THAT PATIENTS STRESS TEST WAS NORMAL. WAITING FOR NEW ORDERS FROM GI. BED ALARM ON. CALL LIGHT WITHIN REACH. WILL CONTINUE TO MONITOR.
[2018-10-14 15:55] VITALS: BP 124/53
--- NOTE | 2018-10-14 16:18 | NUR ---
1230-ASSUMED CARE OF PT AT THIS TIME. AGREE WITH PREVIOUS JEWEL BLOCKER AND SAWYER. PT HAS PLASTIC PRESS OPERATOR IN ROOM AND HE HAS EDUCATED THIS RN TO RESTART DIALYSIS FOR PT AT 1830, ALARM SET ON THIS RN PHONE TO REMIND TO RESTART DIALYSIS. PT TOLERATING DIET THIS SHIFT AND IS TO BE NPO AT MIDNIGHT. D/C CDIFF LAB DUE TO PT NOT HAVING ANY STOOLS SINCE ADMISSION. PT TOLERATING RA AT THIS TIME. PT CREATININE ELEVATED AND WBC ELEVATED AT THIS TIME. WILL AWAIT CLARIFICATION ON PLAN OF CARE AT THIS TIME.
--- NOTE | 2018-10-14 18:36 | NUR ---
PT PERITONEAL DIALYSIS STARTED, CALLED JEAN STEVENS WITH THE DIALYSIS TEAM TO ENSURE IT WAS STARTED CORRECTLY. HE CONFIRMED IT WAS STARTED CORRECTLY. PT VSS STABLE AND HAS REDUCED PAIN AT THIS TIME. WILL CONTINUE TO ASSESS AND MONITOR
--- NOTE | 2018-10-14 19:30 | NUR ---
VSS THIS SHIFT. PT REFUSES INSULIN AND MANAGES INSULIN AT HOME WITH MINIMAL COMPLICATIONS. DIALYSIS STARTED PER SYSTEM TECHNOLOGIST AT 1830, SEE PREVIOUS NOTE. PT TO BE NPO AT [facility]. PT PROVIDED WITH PAIN MEDICATIONS PRIOR TO END OF SHIFT. PT SR ON THE MONITOR AND IS TOLERATING RA AND DIET THIS SHIFT. HOURLY ROUNDING MANITAINED
--- NOTE | 2018-10-14 19:46 | NUR ---
PT VSS THIS SHIFT. PT TO BE NPO AT [facility] FOR EGD ON 10/15/18. PT TOLERATED CLD THIS SHIFT AND HAS NOT HAD ANY REPORTED LOOSE STOOLS. PT ON RA AND IS TAKING IV FENTANYL THIS SHIFT FOR PAIN CONTROL. HOURLY ROUNDING MAINTAINED THIS SHIFT
[2018-10-14 20:00] VITALS: BP 136/75
--- NOTE | 2018-10-15 00:55 | NUR ---
PT ALERT ORIENTED. PT CO OF UPPER ABD PAIN. ORDER FOR EGD AND COLONOSCOPY FOUND. CONSENTS SIGNED. BOWEL PREP STARTED. PT DRANK 2 CUPS GOLYTELY AND WAS IN SEVERE PAIN. 09/10. PT STATED SHE COULD NOT TAKE ANYMORE BOWEL PRE WITH PERITONEAL DIALYSIS. SHE SAID THEY ARE GOING TO HAVE TO DO THIS ANOTHER TIME. DR LAWSON NOTIFIED OF PTS REFUSAL TO CONTINUE WITH BOWEL PREP AND HER REASON. TELEMETRY SHOWS SR. PAIN 09/10 ALTERNATING OXY IR WITH FENTANYL. ON RA. VSS. WILL CONTINUE TO MONITOR.
[2018-10-15 01:05] VITALS: BP 186/88
[2018-10-15 04:00] VITALS: BP 161/81
[2018-10-15 05:49] LABS: ABSOLUTE BASOPHILS 0.1 thou/uL (0.0-0.2); ABSOLUTE EOSINOPHILS 0.3 thou/uL (0.0-0.7); ABSOLUTE LYMPHOCYTES 1.3 thou/uL (0.8-5.3); ABSOLUTE NEUTROPHILS 7.8 thou/uL (1.6-8.1); BASOPHILS 0.6 %; EOSINOPHILS 3.3 %; HEMATOCRIT 29.8 % (37.0-47.0); HEMOGLOBIN 10.2 gm/dL (12.0-15.0); LYMPHOCYTES 12.6 %; MCH 31.1 pg (26.0-34.0); MCHC 34.2 g/dL (28.0-37.0); MCV 90.9 fL (80.0-100.0); MONOCYTES 9.2 %; MPV 7.8 fl. (7.2-11.1); NUCLEATED RBCS 0 /100WBC; POLYS 74.3 %; RBC 3.27 mil/uL (4.20-5.00); RDW-CV 18.3 % (10.5-14.5); WBC 10.6 thou/uL (4.0-11.0)
[2018-10-15 05:51] LABS: PLATELET COUNT* 290 thou/uL (150-400)
[2018-10-15 06:10] LABS: ALBUMIN 1.8 g/dL (3.4-5.0); CALCIUM 8.3 mg/dL (8.5-10.1); CREATININE 5.8 mg/dL (0.6-1.3); MAGNESIUM 1.7 mg/dL (1.8-2.4); POTASSIUM 3.7 mmol/L (3.5-5.1); TOTAL BILIRUBIN 0.3 mg/dL (<0.1-1.0); TOTAL PROTEIN 5.8 g/dL (6.4-8.2)
[2018-10-15 07:30] VITALS: BP 184/95
[2018-10-15 12:00] VITALS: BP 133/73
[2018-10-15 16:00] VITALS: BP 179/77
--- NOTE | 2018-10-15 16:10 | CON ---
[address] [address] CONSULTATION Name: AUBREE ECKERT Room: [address] IN M.R.#: [id number] Admission: 10/11/18 Attend Phys: Glendy Brown MD Discharge: Date of : 57 Report #: [id number] THIS REPORT FOR: //name// CC: Juan M Brown MD DATE OF SERVICE: 10/11/2018 REFERRING PHYSICIAN: Dr. Glendy Brown. REASON FOR CONSULTATION: Abdominal pain and diarrhea with anemia. IMPRESSION: 1. Abdominal pain associated with diarrhea -- evaluate for infection versus related to infected peritoneal dialysate. 2. Anemia without any issues to suggest overt GI blood loss -- the patient is overdue for endoscopic evaluation of her upper and lower GI tract because of personal history of multiple colon polyps. 3. Elevated troponin of uncertain significance with the need for cardiovascular evaluation with chronic renal failure requiring peritoneal dialysis. 4. Peripheral vascular disease requiring chronic Plavix. RECOMMENDATIONS: 1. We will check stool studies at this point in time because of the patient's severe diarrhea and placed in isolation until we rule out the possibility of Clostridium difficile infection. 2. Continue with current antibiotics at this time. 3. Await results from cardiovascular evaluation prior to scheduling any endoscopic studies. She is currently scheduled for a chemical stress test on Saturday, so we will await the results of the same and until Cardiovascular clears her for any endoscopic studies. We will hold off on the same. 4. I have discussed impressive plans with the patient as well as she is agreeable to the same. HISTORY OF PRESENT ILLNESS: The patient is a 63-year-old white female with end-stage renal disease, recurrent peritoneal dialysis, who has been having problems with abdominal pain, diarrhea for the last few days. She has missed some dialysis due to stomach pain and diarrhea, which had been ongoing for several days. She was followed by a photo engraver out in [facility] for the same. She does have problems with chronic diarrhea, some of which is functional in nature and she has undergone endoscopic studies by our practice in the past, last of which was about 3 or 4 years ago. [place] [address] CONSULTATION Name: AUBREE ECKERT Room: [address] IN [facility].#: [id number] Admission: 10/11/18 Attend Phys: Glendy Brown MD Discharge: Date of : 57 Report #: [id number] further evaluation and treatment. ALLERGIES: MORPHINE AND PENICILLIN. HOME MEDICATIONS: Include oxycodone, vitamin D3, tizanidine, Singulair, carvedilol, insulin, pantoprazole, rosuvastatin. She did not have to use Movantik or Relafen. She uses insulin, multivitamin, spironolactone and Plavix. PAST MEDICAL AND SURGICAL HISTORY: Significant for hypertension, peripheral vascular disease. The patient having undergone previous fem-pop from bilateral fem-pop surgery. She has had problems with diabetes, which has been uncontrolled. COPD. She has had bouts of ischemic colitis. She has had previous , bladder lift, chronic back issues and back pain. SOCIAL HISTORY: The patient continues to smoke. She previously drank, but denies any alcohol use at this time. PHYSICAL EXAMINATION: GENERAL: Revealed ill-appearing 63-year-old white female, who appears much older than her stated age. CARDIOPULMONARY EXAMINATION: Revealed a regular rate and rhythm. ABDOMEN: Distended secondary to her dialysate. LABORATORY DATA: From the revealed a white count of 17.1, hemoglobin 7.2, platelet count of 312,000, MCV is 97.8 and RDW is 15.4. Sodium 128, potassium 5.1, chloride 94, bicarbonate is 16, BUN 62, creatinine 8.0. Total bilirubin 0.3, alkaline phosphatase is 88, AST is 14, ALT 13. Her albumin is 2.3. INR is 1.0. CT scan of the abdomen and pelvis was reviewed and revealed some ascites with a peritoneal dialysis catheter in place. She has some small bilateral pleural effusion. She had postsurgical changes noted with L4-L5 fusion. DISCUSSION: The patient has elevated troponins at this point in time. We will hold off on any endoscopic studies until Cardiovascular has cleared her for the same. We will follow while she is in the hospital. <ELECTRONICALLY SIGNED> By: Roger Niño DO 10/15/18 1610 0741 10Roger Niño DO /nt
[2018-10-15 20:00] VITALS: BP 112/68
[2018-10-16] VITALS (8 sets, daily range): BP systolic 119–188; BP diastolic 50–90
[2018-10-16 05:07] LABS: HEMATOCRIT 26.8 % (37.0-47.0); HEMOGLOBIN 9.2 gm/dL (12.0-15.0); MCH 31.4 pg (26.0-34.0); MCHC 34.5 g/dL (28.0-37.0); MCV 91.1 fL (80.0-100.0); MPV 7.6 fl. (7.2-11.1); RBC 2.94 mil/uL (4.20-5.00); WBC 7.4 thou/uL (4.0-11.0)
[2018-10-16 05:34] LABS: ALBUMIN 1.5 g/dL (3.4-5.0); CALCIUM 8.1 mg/dL (8.5-10.1); CREATININE 5.9 mg/dL (0.6-1.3); MAGNESIUM 1.9 mg/dL (1.8-2.4); PHOSPHORUS* 3.8 mg/dL (2.5-4.9); POTASSIUM 3.5 mmol/L (3.5-5.1)
--- NOTE | 2018-10-16 05:42 | NUR ---
LAB CONTACTED ABOUT SAMPLE OF FLUID PD NURSE GAVE THEM, DUE TO NOT BEING LABLED CORRECTLY LAB UNABLE TO PROCESS. PT NPO FOR PROCEDURES. BOWEL PREP COMPLETE PT HAD SEVERAL LARGE BOWEL MOVEMENTS. VITALS WNL. SEE MAR. SEE CHARTING. FALL PRECAUTIONS IN PLACE. HOURLY ROUNDING FOR SAFETY.
[2018-10-16 17:52] LABS: BF RBC <1000 /mm3; TOTAL CELL COUNT 69 /mm3
[2018-10-16 18:36] LABS: BF LYMPHOCYTES 12 %; BF MONOCYTES 76 %; BF POLYS 12 %; BF TISSUE 2 /100 WBC
[2018-10-16 18:38] LABS: CLARITY CLEAR; COLOR COLORLESS; TOTAL VOLUME 3 ml
--- NOTE | 2018-10-16 18:55 | NUR ---
PATIENT PROGRESSING TOWARDS GOALS. UP STANDBY ASSIST IN ROOM. TOLERATED EGD/COLON WELL THIS AFTERNOON. ADVANCED TO RENAL DIET POST PROCEDURE. TOLERATING RENAL DIET WELL WITHOUT NAUSEA OR VOMITING. PERITONEAL DIALYSIS STARTED POST PROCEDURE. VITAL SIGNS STABLE. PAIN CONTROLLED WITH PRN PAIN MEDICATION. CALL LIGHT WITHIN REACH. WILL CONTINUE TO MONITOR.
[2018-10-17] VITALS (7 sets, daily range): BP systolic 88–162; BP diastolic 43–79
--- NOTE | 2018-10-17 01:24 | NUR ---
PT RESTING QUIETLY. ORIENTED X 4. REQUESTING PAIN MEDICATION WHEN AWAKE. PT STATED MY PAIN IS ALWAYS AN 8. PD STARTED AT 2200. TELEMETRY SHOWS SR. WILL CONTINUE TO MONITOR.
[2018-10-17 05:41] LABS: ALBUMIN 1.7 g/dL (3.4-5.0); CALCIUM 8.6 mg/dL (8.5-10.1); CREATININE 5.7 mg/dL (0.6-1.3); PHOSPHORUS* 3.9 mg/dL (2.5-4.9); POTASSIUM 4.3 mmol/L (3.5-5.1)
--- NOTE | 2018-10-21 14:09 | PATH ---
[address] [address] PATHOLOGY RPT PROCEDURE Name: ZARINA ECKERT Room: [address] IN M.R.#: [id number] Admission: 10/11/18 Date of : 57 Discharge: 10/17/18 Report #: [id number] Path Case #: [id number] [facility] Accession Number: [id number] . 01 Material submitted: . PART A: SMALL BOWEL BIOPSIES PART B: RANDOM COLON BIOPSIES PART C: MID TRANSVERSE COLON POLYP PART D: DESCENDING COLON POLYP . 01 Clinician provided ICD-10: K52.9 . 01 Clinical history: . Chronic diarrhea . 02 Diagnosis: A. Small bowel biopsies: - Focal fresh hemorrhage in otherwise normal duodenal/small intestinal mucosa. . B. Random colon biopsies: - Normal colonic mucosa. . C. Mid-transverse colon polyp: - Tubular adenoma, negative for high grade dysplasia. . D. Descending colon polyp: - Tubular adenoma, negative for high grade dysplasia. . (BOLA:at;10/20/18) QTA/10/20/2018 . 02 Electronically signed: . Carlito Garcia MD, Pathologist NPI- [id number] . 01 Gross description: . A. The specimen is received in formalin, labeled "BabarZarina, small bowel biopsies" and consists of multiple fragments of soft phipps tissue measuring 0.9 x 0.6 x 0.2 cm in aggregate which are entirely submitted in A1. . B. The specimen is received in formalin, labeled "Zarina Eckert, random colon biopsies" and consists of multiple fragments of soft phipps tissue measuring 1.2 x 0.6 x 0.2 cm in aggregate which are entirely submitted [place] [address] PATHOLOGY RPT PROCEDURE Name: BABAR,ZARINA Room: [address] IN [facility].#: [id number] Admission: 10/11/18 Date of : 57 Discharge: 10/17/18 Report #: [id number] Path Case #: [id number] C. The specimen is received in formalin, labeled "Zarina Eckert, mid transverse colon polyp" and consists of a polypoid segment of brown tissue measuring 0.5 x 0.3 x 0.3 cm (stalk measuring 0.3 x 0.1 cm). The margin is inked and it is submitted intact in C1. . D. The specimen is received in formalin, labeled "Zarina Eckert, descending colon polyp" and consists of a sessile fragment of brown tissue measuring 0.4 x 0.4 x 0.3 cm. It is inked, bisected, and entirely submitted in D1. (SDY; 10/17/2018) SYU/SYU . 02 Pathologist provided ICD-10: D12.3, D12.4, K52.9 . 02 CPT . 718857, 699777, 917780, 195556 Specimen Comment: A courtesy copy of this report has been sent to Specimen Comment: [phone], , . Specimen Comment: Report sent to , DR ABRAHAM / DR RINCON Specimen Comment: A duplicate report has been generated due to demographic updates. Performed at: [address], [place], [place] [id number] MD Kartik Rangel MD Phone: [phone] Performed at: 02 [facility] [address], [place], [place] [id number] MD Carlito Garcia MD Phone: [phone]
== END 2018-10-17 17:25 | disposition home or self-care (01) | DRG 371 ==
LOC: M.ERS 22:28 → M.2W 10-11 02:11 → M.TBA-ER 10-11 02:11 → M.2W 10-11 03:08
PROVIDERS: Emergency Medicine; Internal Medicine; Internal Medicine Cardiovascular Disease; Internal Medicine Gastroenterology; Internal Medicine Nephrology; Pathology Anatomic Pathology & Clinical Pathology; ADMIT Family Medicine
PROC: 3E1M39Z Irrigation of Peritoneal Cavity using Dialysate, Percutaneous Approach (ICD-10-PCS; principal; 2018-10-11)
PROC: 0DBE8ZX Excision of Large Intestine, Via Natural or Artificial Opening Endoscopic, Diagnostic (ICD-10-PCS; 2018-10-16)
PROC: 0DBE8ZZ Excision of Large Intestine, Via Natural or Artificial Opening Endoscopic (ICD-10-PCS; 2018-10-16)
PROC: 0DJ08ZZ Inspection of Upper Intestinal Tract, Via Natural or Artificial Opening Endoscopic (ICD-10-PCS; 2018-10-16)
DX: K65.9 Peritonitis, unspecified (principal); J18.9 Pneumonia, unspecified organism; N18.6 End stage renal disease; J96.00 Acute respiratory failure, unspecified whether with hypoxia or hypercapnia; I12.0 Hypertensive chronic kidney disease with stage 5 chronic kidney disease or end stage renal disease; E87.1 Hypo-osmolality and hyponatremia; E87.2 Acidosis; A08.4 Viral intestinal infection, unspecified; E87.70 Fluid overload, unspecified; K52.9 Noninfective gastroenteritis and colitis, unspecified; E11.22 Type 2 diabetes mellitus with diabetic chronic kidney disease; E11.51 Type 2 diabetes mellitus with diabetic peripheral angiopathy without gangrene; E78.5 Hyperlipidemia, unspecified; M81.0 Age-related osteoporosis without current pathological fracture; F17.210 Nicotine dependence, cigarettes, uncomplicated; E11.40 Type 2 diabetes mellitus with diabetic neuropathy, unspecified; K63.5 Polyp of colon; F41.9 Anxiety disorder, unspecified; F32.9 Major depressive disorder, single episode, unspecified; K57.30 Diverticulosis of large intestine without perforation or abscess without bleeding; D64.9 Anemia, unspecified; K64.4 Residual hemorrhoidal skin tags; Z86.718 Personal history of other venous thrombosis and embolism; Z95.820 Peripheral vascular angioplasty status with implants and grafts; Z79.4 Long term (current) use of insulin; Z79.51 Long term (current) use of inhaled steroids; Z91.15 Patient's noncompliance with renal dialysis; Z79.899 Other long term (current) drug therapy; Z88.0 Allergy status to penicillin; Z88.5 Allergy status to narcotic agent; Z83.3 Family history of diabetes mellitus; Z82.49 Family history of ischemic heart disease and other diseases of the circulatory system

== ENCOUNTER 2019-01-10 09:01 | Inpatient (IN) | payer MEDICAID ==
[~2019-01-10] VITALS: Ht 152.4 cm; Wt 56.7 kg
--- NOTE | ~2019-01-10 | CON ---
[address] [address] CONSULTATION Name: AUBREE ECKERT Room: [address] ADM IN M.R.#: [id number] Admission: 01/10/19 Attend Phys: William Deleon MD Discharge: Date of : 57 Report #: [id number] THIS REPORT FOR: //name// CC: William Colin DATE OF SERVICE: 01/13/2019 HISTORY OF PRESENT ILLNESS: This is a 63-year-old female patient who was evaluated by me interiano for stroke. History was taken by talking to the nurses, both the day nurses and night nurses and by talking to Dr. Deleon, the hospitalist and Dr. Portillo who was hospitalist documentation clerk and Dr. Thomas, the quality assurance calibrator. That history is that the patient received some sedation yesterday during the cardiac catheterization. She was supposed to have altered mental status and visual disturbances at times. Symptoms were nonspecific and apparently the patient was not able to cooperate. When the patient did not become any better, a CT scan of the head was done and when the visual disturbances continued, an MRI was done. MRI demonstrate multiple CVAs including the one in the left occipital area. The patient is still not very cooperative. MRI imaging characteristics indicate that the CVA is 24-48 hours duration and that will correlate with the fact that the symptoms started yesterday. The imaging characteristics indicate that the stroke is about 24-48 hours duration. REVIEW OF SYSTEMS: Positive for pretty extensive problem. The patient had kidney disease, CHF and pretty significant coronary artery disease. She was admitted with chest pain. She was difficult to do stenting. She is anemic. This was a relevant review of system. On evaluation today, she was found to have a C2 fracture, which was concerned. Radiologist has indicated of unknown duration but sclerosis has been present. That was her relevant 14-point review of system. PAST MEDICAL HISTORY: Positive for kidney problems. FAMILY HISTORY: Negative for early age stroke. SOCIAL HISTORY: The patient apparently is , but I do not have any family member here. PHYSICAL EXAMINATION: NEUROLOGICAL: Indicate she is alert. She is responsive. She has speech but her cooperation was poor. She knows what hospital it is. I tried to do further cognitive evaluation and she was not very cooperative. Cranial nerve examinations indicate dense visual field deficit, but I can tell where exactly it is. She has what looks like dense right hemianopsia, but visual deficit looks more than that. She moves all four extremities [place] [address] CONSULTATION Name: AUBREE ECKERT Room: [address] IN [facility].#: [id number] Admission: 01/10/19 Attend Phys: William Deleon MD Discharge: Date of : 57 Report #: [id number] reasonably well. Her position sense is intact. Reflexes are symmetrical, although diminished. Tone is symmetrical. I could not look at the patient's fundus. IMPRESSION: 1. Cerebrovascular accident. By imaging, characteristics of cerebrovascular accident is 24-48 hour duration. That will correlate with the clinical finding. We will get an MRA of the head and neck done but since the strokes are more than 24-hour duration, no intervention can be done in this patient and we just need to mainly observe that. She is already on aspirin and a statin and further management will depend upon further evaluation of the carotids and other vasculature. 2. C2 fracture. But the report that indicates it is of unknown duration. It looks like a stable fracture so far because the patient has been moving without any aggravation of the deficit. That question is being addressed by a neurosurgeon. The patient needs neurosurgical clearance in this regard but reviewing the record, it looks like neurosurgeon has been contacted and because of the scoliosis they think it is old but they cannot review the films. That question is being addressed by a hospitalist and we will defer that to them. Once neurosurgeon clears the patient up, we will do the further workup because the further workup of the stroke is not emergent at the movement because of that reason summarized above. 3. Numerous other medical problems as summarized above. RECOMMENDATIONS: 1. For stroke, we will get an MRA and MRI of the head and neck done. 2. We will get that done once she gets surgical clearance for her fracture. 3. We will reevaluate the patient tomorrow. More than 50 minutes of time was spent taking care of this patient today and majority of that time was spent counseling the patient and coordinating her care by talking to multiple other health respiratory care specialist. By: [id number] Donovan MD /parth
--- NOTE | ~2019-01-10 | EEG ---
[address] [address] EEG STUDY REPORT Name: AUBREE ECKERT Room: [address] IN M.R.#: [id number] Admission: 01/10/19 Attend Phys: William Deleon MD Discharge: Date of : 57 Report #: [id number] THIS REPORT FOR: //name// CC: William Colin DATE OF SERVICE: 01/15/2019 This patient is being evaluated for altered mental status. The patient's EEG was done by placing the electrodes by standard 10-20 system of electrode placement. Both referential and sequential montages were used for recording. Background activity in this patient's EEG is about 7 Hz and 30 microvolt. It is a symmetrical activity. Photic stimulation is unremarkable. The patient went to sleep that is associated with bilateral slowing and vertex sharp waves. Throughout the record no active epileptiform activity was noticed, but slowing is more prominent on the left side as compared to the right side. IMPRESSION: This is an abnormal electroencephalogram because it is disorganized and poorly formed. That finding will be consistent with encephalopathy. It is a nonspecific finding, it can occur with dementia, effect of psychotropic medication, etc. EEG is more slow on the left side as compared to the right side. Clinical correlation is recommended. By: 1810 [id number] Donovan MD /parth
[~2019-01-10 09:01] MED LIST changes: +TIZANIDINE HCL4 MG PO
[2019-01-10 09:04] VITALS: BP 218/124
[2019-01-10] MEDS ORDERED: NORTRIPTYLINE H50 MG PO (09:13)
[2019-01-10 09:33] LABS: ABSOLUTE BASOPHILS 0.1 thou/uL (0.0-0.2); ABSOLUTE EOSINOPHILS 0.3 thou/uL (0.0-0.7); ABSOLUTE LYMPHOCYTES 1.3 thou/uL (0.8-5.3); ABSOLUTE NEUTROPHILS 8.5 thou/uL (1.6-8.1); BASOPHILS 1.2 %; EOSINOPHILS 2.5 %; HEMATOCRIT 29.3 % (37.0-47.0); HEMOGLOBIN 9.9 gm/dL (12.0-15.0); LYMPHOCYTES 11.4 %; MCH 31.2 pg (26.0-34.0); MCHC 33.7 g/dL (28.0-37.0); MCV 92.8 fL (80.0-100.0); MPV 7.9 fl. (7.2-11.1); NUCLEATED RBCS 0 /100WBC; PLATELET COUNT* 344 thou/uL (150-400); POLYS 75.9 %; RBC 3.16 mil/uL (4.20-5.00); RDW-CV 14.4 % (10.5-14.5); WBC 11.2 thou/uL (4.0-11.0)
[2019-01-10 09:43] LABS: ANION GAP 11 mmol/L (7-16); BUN 46 mg/dL (7-18); CALCIUM 8.4 mg/dL (8.5-10.1); CHLORIDE 93 mmol/L (98-107); CO2 28 mmol/L (21-32); CREATININE 8.1 mg/dL (0.6-1.3); GLUCOSE 349 mg/dL (70-99); SODIUM 132 mmol/L (136-145)
[2019-01-10 10:00] LABS: APTT 26.7 Seconds (25.0-31.3); PROTIME 10.2 Seconds (9.20-11.50)
[2019-01-10 10:03] LABS: ALBUMIN 2.1 g/dL (3.4-5.0); ALKALINE PHOSPHATASE 73 U/L (46-116); CK-MB MASS 4.2 ng/mL (<0.5-3.6); LIPASE 74 U/L (73-393); NT-PRO BRAIN NAT PEPTIDE > 35000 pg/mL (<300); SGOT 17 U/L (15-37); SGPT 12 U/L (30-65); TOTAL BILIRUBIN 0.3 mg/dL (<0.1-1.0); TOTAL PROTEIN 6.5 g/dL (6.4-8.2)
[2019-01-10 10:06] LABS: TROPONIN-I LEVEL 0.73 ng/mL (<0.06)
[2019-01-10 11:30] VITALS: BP 180/91
[2019-01-10 11:45] VITALS: BP 171/86
[2019-01-10 12:00] VITALS: BP 183/93
[2019-01-10 20:00] VITALS: BP 166/84
[2019-01-11] VITALS: BP 148/82
[2019-01-11 04:00] VITALS: BP 149/76
[2019-01-11 04:43] LABS: ABSOLUTE BASOPHILS 0.1 thou/uL (0.0-0.2); ABSOLUTE EOSINOPHILS 0.2 thou/uL (0.0-0.7); ABSOLUTE LYMPHOCYTES 1.9 thou/uL (0.8-5.3); ABSOLUTE MONOCYTES 0.9 thou/uL (0.0-1.2); ABSOLUTE NEUTROPHILS 4.5 thou/uL (1.6-8.1); BASOPHILS 0.8 %; EOSINOPHILS 3.1 %; HEMATOCRIT 22.9 % (37.0-47.0); LYMPHOCYTES 25.3 %; MCH 31.8 pg (26.0-34.0); MCHC 34.8 g/dL (28.0-37.0); MCV 91.2 fL (80.0-100.0); MPV 7.7 fl. (7.2-11.1); NUCLEATED RBCS 0 /100WBC; PLATELET COUNT* 275 thou/uL (150-400); POLYS 58.8 %; RBC 2.52 mil/uL (4.20-5.00); RDW-CV 14.5 % (10.5-14.5); WBC 7.7 thou/uL (4.0-11.0)
[2019-01-11 05:06] LABS: CALCIUM 8.3 mg/dL (8.5-10.1); POTASSIUM 3.9 mmol/L (3.5-5.1)
[2019-01-11 08:00] VITALS: BP 152/77
[2019-01-11 11:38] VITALS: BP 126/76
--- NOTE | 2019-01-11 12:25 | EKG ---
[place] [address] ELECTROCARDIOGRAM REPORT Name: AUBREE ECKERT Room: [address] ADM IN M.R.#: [id number] Admission: 01/10/19 Attend Phys: William Deleon MD Discharge: Date of : 57 Report #: [id number] THIS REPORT FOR: //name// [facility] Test Date: 2019-01-10 Test Time: 11:57:41 Pat Name: AUBREE ECKERT Department: Room: [address] Gender: F Web Production Designer: [facility] : 1955 Requested By: William Deleon Order Number: [id number] Reading MD: Paul Barrett Measurements Intervals [place] Rate: 102 P: 45 FL: 162 QRS: 47 QRSD: 102 T: 82 QT: 388 QTc: 506 Interpretive Statements Sinus tachycardia Left atrial enlargement LVH with secondary repolarization abnormality Prolonged QT interval Compared to ECG 10/11/2018 22:22:23 No significant changes Electronically Signed On 01-11-2019 12:25:10 CLIENT SUPPORT CONSULTANT by Paul Barrett [email or web address] <ELECTRONICALLY SIGNED> By: Paul Barrett MD, [facility] 01/11/19 1225 1157 1157 Paul Barrett MD, [facility] /EPI
--- NOTE | 2019-01-11 12:25 | EKG ---
[place] [address] ELECTROCARDIOGRAM REPORT Name: AUBREE ECKERT Room: [address] ADM IN .R.#: [id number] Admission: 01/10/19 Attend Phys: William Deleon MD Discharge: Date of : 57 Report #: [id number] THIS REPORT FOR: //name// [facility] ED Test Date: 2019-01-10 Test Time: 09:05:45 Pat Name: AUBREE ECKERT Department: Room: [facility] Gender: F Motion Picture Director: : 1955 Requested By: [place] Order Number: [id number] MD: Paul Barrett Measurements Intervals [place] Rate: 122 P: 0 HI: 127 QRS: 68 QRSD: 105 T: QT: 336 QTc: 479 Interpretive Statements Sinus tachycardia Probable left atrial enlargement LVH with secondary repolarization abnormality Compared to ECG 10/11/2018 22:22:23 Prolonged QT interval no longer present Electronically Signed On 01-11-2019 12:25:02 AUDIOVISUAL TECHNICIAN by Paul Barrett [email or web address] <ELECTRONICALLY SIGNED> By: Paul Barrett MD, [facility] 01/11/19 1225 09 09 Paul Barrett MD, [facility] /EPI
[2019-01-11 13:23] LABS: ANION GAP 9 mmol/L (7-16); BUN 50 mg/dL (7-18); CALCIUM 8.5 mg/dL (8.5-10.1); CHLORIDE 95 mmol/L (98-107); CHOLESTEROL 132 mg/dL (<200); CO2 30 mmol/L (21-32); CREATININE 8.3 mg/dL (0.6-1.3); GLUCOSE 108 mg/dL (70-99); HDL CHOLESTEROL 57 mg/dL (>40); LDL CHOLESTEROL 47 mg/dL (<100); POTASSIUM 3.9 mmol/L (3.5-5.1); SERUM ASSESSMENT Clear; SODIUM 134 mmol/L (136-145); TC:HDL 2.3 Ratio (Not establshd); TRIGLYCERIDE 141 mg/dL (<150); VLDL 28 mg/dL (<40)
[2019-01-11 16:15] VITALS: BP 170/87
[2019-01-11 21:00] VITALS: BP 146/73
[2019-01-12] VITALS (17 sets, daily range): BP systolic 105–148; BP diastolic 41–89
[2019-01-12 04:24] LABS: HEMATOCRIT 24.4 % (37.0-47.0); HEMOGLOBIN 8.3 gm/dL (12.0-15.0); MCH 31.6 pg (26.0-34.0); MCHC 34.2 g/dL (28.0-37.0); MCV 92.5 fL (80.0-100.0); MPV 7.8 fl. (7.2-11.1); NUCLEATED RBCS 0 /100WBC; PLATELET COUNT* 273 thou/uL (150-400); RBC 2.64 mil/uL (4.20-5.00); RDW-CV 14.5 % (10.5-14.5); WBC 11.7 thou/uL (4.0-11.0)
[2019-01-12 04:30] LABS: CALCIUM 8.3 mg/dL (8.5-10.1); CREATININE 8.1 mg/dL (0.6-1.3); POTASSIUM 3.4 mmol/L (3.5-5.1)
[2019-01-12 05:42] LABS: ABSOLUTE BASOPHILS 0.2 thou/uL (0.0-0.2); ABSOLUTE LYMPHOCYTES 1.4 thou/uL (0.8-5.3); ABSOLUTE MONOCYTES 0.1 thou/uL (0.0-1.2); ABSOLUTE NEUTROPHILS 9.9 thou/uL (1.6-8.1); ANISOCYTOSIS 1+; PLATELET ESTIMATE ADEQUATE; POIKILOCYTOSIS 1+
--- NOTE | 2019-01-12 10:24 | EKG ---
[place] [address] ELECTROCARDIOGRAM REPORT Name: AUBREE ECKERT Room: [address] ADM IN M.R.#: [id number] Admission: 01/10/19 Attend Phys: William Deleon MD Discharge: Date of : 57 Report #: [id number] THIS REPORT FOR: //name// [facility] Test Date: 2019-01-11 Test Time: 12:30:52 Pat Name: AUBREE ECKERT Department: Room: [address] Gender: F Tuckpointer: : 1955 Requested By: William Deleon Order Number: [id number] Reading MD: Michael Thomas Measurements Intervals [place] Rate: 102 P: 39 SC: 159 QRS: 32 QRSD: 103 T: 96 QT: 390 QTc: 509 Interpretive Statements Sinus tachycardia repolarization abnormality Prolonged QT interval Baseline wander in lead(s) V3,V5,V6 Compared to ECG 01/10/2019 11:57:41 no change Electronically Signed On 01-12-2019 10:24:06 MOLD MECHANIC by Michael Thomas [email or web address] <ELECTRONICALLY SIGNED> By: Michael Thomas MD, FAC 01/12/19 1024 1230 1230 Michael Thomas MD, [facility] /EPI
--- NOTE | 2019-01-12 16:52 | CARD ---
[address] [address] CARDIAC CATH REPORT Name: AUBREE ECKERT Room: [address] IN .R.#: [id number] Admission: 01/10/19 Attend Phys: iWlliam Deleon MD Discharge: Date of : 57 Report #: [id number] THIS REPORT FOR: //name// APPROVED REPORT Study performed: 01/12/2019 11:38:24 Patient Details Patient Status: In-Patient Room #: The patient is a 63 year-old female Event Personnel Michael Thomas Learn To Swim Instructor, Mikayla Troncoso RN Collator Operator, Marlys Taylor RTR Monitor, Farhad Buchanan (R) Scrub Procedures Performed Art Access - R radial artery , Left Heart Catheterization Indication Chest pain Risk Factors Cerebrovascular DiseasePeripheral Vascular Disease, Renal Failure, Diabetes Tobacco History () Previous Procedures/Diagnoses Previous Vascular Surgery Admission/Lab Medications/Medications given during procedure Heparin Unfract., Heparin IV 3000 units, Heparin IV 26.5 units Procedure Narrative The patient was brought electively to the Cardiac Catheterization Laboratory and was prepped and draped in a sterile manner. The right wrist was infiltrated with 2% Lidocaine subcutaneous anesthesia. A Slender Glidesheath sheath was inserted into the right radial artery. Coronary angiography was performed using coronary diagnostic catheters. The right coronary system was accessed and visualized with a Diagnostic 6Fr JR4 catheter. The left coronary system was accessed and visualized with a Diagnostic 6Fr AL1 catheter. Left ventricular/Aortic Valve gradient assessed via catheter pullback. Left ventriculogram was performed in JUAREZ projection. Closure device was deployed with a 6 Fr Vasc-Band Reg 24cm. [place] [address] CARDIAC CATH REPORT Name: AUBREE ECKERT Room: [address] IN [facility]#: [id number] Admission: 01/10/19 Attend Phys: William Deleon MD Discharge: Date of : 57 Report #: [id number] the procedure well and there were no complications associated with the procedure. There was no hematoma. Intraoperative Conscious Sedation Sedation start time: 1315 Case end Time: 1403 Fentanyl 50 mcg Versed 5 mg Fluoro Time: 17.0 minutes Dose: DAP 15090 cGycm2 53.3 mGy Contrast Type and Amount: Visipaque 200 ml Coronary Angiography The patient's coronary anatomy is right dominant. Diagnostic Cath Left Main Vessels are heavily calcified 0% stenosis LAD 60% mid stenosis Circumflex 70% proximal stenosis Right Coronary 90% mid and 50% distal stenosis Left Ventriculography Left Ventriculography was not performed. Hemodynamics The aortic pressure is 103/51 mmHg with a mean of 66 mmHg. The left ventricular pressure is 105/6 mmHg with a mean of mmHg. The left ventricular end diastolic pressure is 22 mmHg. There was no gradient across the aortic valve upon pullback. Pullback from the left ventricle to the aorta revealed no gradient across the aortic valve. PCI Technique Lesion Anticoagulation was achieved with Heparin. Patient was preloaded with Plavix. Percutaneous coronary intervention was performed on the mid right coronary artery. The lesion stenosis prior to intervention was 90% with RC 3 flow. BALLOON DILATION Attempted cannulating RCA with multipurpose, amplatz I right, and amplatz I left guiding catheters. Unable to adequately cannulate the RCA ostium because of tortuosity of aorta, and abnormal takeoff of rca. Final angiography reveals 90 % stenosis with RC 3 [place] [address] CARDIAC CATH REPORT Name: AUBREE ECKERT Room: [address] IN [facility].#: [id number] Admission: 01/10/19 Attend Phys: William Deleon MD Discharge: Date of : 57 Report #: [id number] flow. Conclusion 1. 60% stenosis of mid lad, and 70% stenosis of proximal circumflex arteries 2. 90% stenosis noted of the mid rca 3. unable to place stent in rca because of inability to cannulate ostium of rca with multiple guiding catheters including multipurpose, right amplatz I, nor left amplatz I catheters Recommendations Plan to bring back to lab and attempt stenting of rca from the left femoral artery <ELECTRONICALLY SIGNED> By: Michael Thomas MD, [facility] 01/12/19 1460 51 [id number] Thomas MD, [facility] /INF
[2019-01-13] VITALS: BP 140/73
[2019-01-13 04:00] VITALS: BP 161/86
[2019-01-13 05:05] LABS: CALCIUM 8.3 mg/dL (8.5-10.1); CREATININE 8.4 mg/dL (0.6-1.3); POTASSIUM 4.2 mmol/L (3.5-5.1)
[2019-01-13 05:14] LABS: % SATURATION 26 % (20-39); IRON 32 ug/dL (50-175)
[2019-01-13 08:00] VITALS: BP 154/77
[2019-01-13 12:31] VITALS: BP 146/42
[2019-01-13 17:33] VITALS: BP 121/71
[2019-01-13 20:40] VITALS: BP 149/78
[2019-01-14] VITALS (8 sets, daily range): BP systolic 137–178; BP diastolic 66–88
[2019-01-14 05:02] LABS: ABSOLUTE BASOPHILS 0.1 thou/uL (0.0-0.2); ABSOLUTE EOSINOPHILS 0.4 thou/uL (0.0-0.7); ABSOLUTE LYMPHOCYTES 1.2 thou/uL (0.8-5.3); ABSOLUTE MONOCYTES 0.8 thou/uL (0.0-1.2); ABSOLUTE NEUTROPHILS 5.5 thou/uL (1.6-8.1); BASOPHILS 0.7 %; EOSINOPHILS 5.2 %; HEMATOCRIT 23.2 % (37.0-47.0); LYMPHOCYTES 15.5 %; MCH 31.9 pg (26.0-34.0); MCHC 34.3 g/dL (28.0-37.0); MCV 93.1 fL (80.0-100.0); MONOCYTES 10.5 %; NUCLEATED RBCS 0 /100WBC; PLATELET COUNT* 280 thou/uL (150-400); POLYS 68.1 %; RBC 2.49 mil/uL (4.20-5.00); RDW-CV 14.8 % (10.5-14.5)
[2019-01-14 05:23] LABS: CALCIUM 8.3 mg/dL (8.5-10.1); CREATININE 8.9 mg/dL (0.6-1.3); POTASSIUM 4.4 mmol/L (3.5-5.1)
[2019-01-14 13:17] LABS: ALBUMIN 1.5 g/dL (3.4-5.0); CALCIUM 8.6 mg/dL (8.5-10.1); POTASSIUM 4.4 mmol/L (3.5-5.1); TOTAL BILIRUBIN 0.1 mg/dL (<0.1-1.0); TOTAL PROTEIN 5.9 g/dL (6.4-8.2)
[2019-01-15] VITALS: BP 135/71; BP 143/59
[2019-01-15 02:11] LABS: GLYCOHEMOGLOBIN (HGB A1C) 11.1 % (4.8-5.6)
[2019-01-15 04:00] VITALS: BP 139/72
[2019-01-15 08:00] VITALS: BP 156/95
[2019-01-15 11:40] VITALS: BP 141/69
[2019-01-15 17:29] VITALS: BP 139/85
--- NOTE | 2019-01-15 17:33 | 2DMMODE ---
[place] [address] 2 D/M-MODE ECHOCARDIOGRAM Name: AUBREE ECKERT Room: [address] IN [facility]#: [id number] Admission: 01/10/19 Attend Phys: William Deleon, Discharge: Date of : 57 Date of Service: 01/15/19 1733 Report #: [id number] THIS REPORT FOR: //name// APPROVED REPORT Study performed: 01/15/2019 16:09:06 EXAM: Comprehensive 2D, Doppler, and color-flow Echocardiogram Patient Location: In-Patient Room #: [facility] Status: routine BSA: 1.53 HR: 92 bpm BP: 142/73 mmHg Rhythm: NSR Other Information Study Quality: Good Indications Congestive Heart Failure CVA/TIA Echo Enhancing Agent Indication: Rule out Shunt Agent(s) / Amount(s) Used: Agitated Saline 10 cc 2D Dimensions IVSd: 10.94 (7-11mm) LVOT Diam: 17.65 (18-24mm) LVDd: 53.56 mm PWd: 10.25 (7-11mm) Ascending Ao: 31.00 (22-36mm) LVDs: 33.66 (25-40mm) Aortic Root: 24.63 mm Volumes Left Atrial Volume (Systole) LA ESV Index: 45.80 mL/m2 Aortic Valve AoV Peak Cesar.: 1.92 m/s AO Peak Gr.: 14.79 mmHg LVOT Max P.47 mmHg AO Mean Gr.: 8.55 mmHg LVOT Mean P.63 mmHg LVOT Max V: 0.93 m/s AO V2 VTI: 36.65 cm LVOT Mean V: 0.58 m/s KINSEY (VTI): 1.23 cm2 LVOT V1 VTI: 18.39 [place] [address] 2 D/M-MODE ECHOCARDIOGRAM Name: AUBREE ECKERT Room: [address] IN .R.#: [id number] Admission: 01/10/19 Attend Phys: William Deleon, Discharge: Date of : 57 Date of Service: 01/15/19 1733 Report #: [id number] AI Bracken: 4.18 m/s2 AI PHT: 262.21 ms Mitral Valve MV Mean Gr.: 11.32 mmHg E/A Ratio: 1.08 MV Decel. Time: 172.18 ms MV E Max Ecsar.: 1.81 m/s MV PHT: 49.93 ms MVA (PHT): 4.41 cm2 TDI E/Lateral E': 20.11 E/Medial E': 25.86 Medial E' Cesra.: 0.07 m/s Lateral E' Cesar.: 0.09 m/s Pulmonary Valve PV Peak Cesar.: 0.75 m/s PV Peak Gr.: 2.28 mmHg Left Ventricle The left ventricle is normal size. There is normal LV segmental wall motion. There is normal left ventricular wall thickness. Left ventricular systolic function is normal. LVEF is 50-55%. Transmitral Doppler flow pattern suggests impaired LV relaxation. Right Ventricle The right ventricle is normal size. The right ventricular systolic function is normal. Atria Left atrium is moderately dilated. Interatrial septum is intact without evidence of ASD or PFO. The right atrium size is normal. Aortic Valve Moderate aortic valve sclerosis. Mild aortic regurgitation. Mild to moderate aortic stenosis. Mitral Valve Moderate mitral annular calcification. Moderate to severe mitral regurgitation No evidence of mitral valve stenosis. Tricuspid Valve The tricuspid valve is normal in structure. Trace tricuspid regurgitation. Unable to assess PA [place] [address] 2 D/M-MODE ECHOCARDIOGRAM Name: AUBREE ECKERT Room: [address] IN [facility]#: [id number] Admission: 01/10/19 Attend Phys: William Deleon, Discharge: Date of : 57 Date of Service: 01/15/19 1733 Report #: [id number] The pulmonary valve is normal in structure. There is no pulmonic valvular regurgitation. Great Vessels The aortic root is normal in size. IVC is normal in size and collapses >50% with inspiration. Pericardium There is no pericardial effusion. <Conclusion> The left ventricle is normal size. There is normal left ventricular wall thickness. Left ventricular systolic function is normal. LVEF is 50-55%. Transmitral Doppler flow pattern suggests impaired LV relaxation. Interatrial septum is intact without evidence of ASD or PFO. Left atrium is moderately dilated. Moderate aortic valve sclerosis. Mild aortic regurgitation. Mild to moderate aortic stenosis. Moderate mitral annular calcification. Moderate to severe mitral regurgitation IVC is normal in size and collapses >50% with inspiration. <ELECTRONICALLY SIGNED> By: Zachary Awad MD, FACC 01/15/19 1733 173 173 Zachary Awad MD, FACC /INF
[2019-01-15 20:00] VITALS: BP 133/63
[2019-01-16 00:01] VITALS: BP 167/83
[2019-01-16 04:00] VITALS: BP 148/73
[2019-01-16 08:00] VITALS: BP 132/90
[2019-01-16 11:53] VITALS: BP 141/72
[2019-01-16 15:49] VITALS: BP 139/89
--- NOTE | 2019-01-20 10:07 | CON ---
[facility] [address] [place] [address] CONSULTATION Name: AUBREE ECKERT Room: [address] IN M.R.#: [id number] Admission: 01/10/19 Attend Phys: William Deleon MD Discharge: 01/16/19 Date of : 57 Report #: [id number] THIS REPORT FOR: //name// CC: William Colin DATE OF SERVICE: 01/10/2019 REQUESTING PHYSICIAN: William Deleon M.D. REASON FOR CONSULTATION: Assist in providing dialysis. HISTORY OF PRESENT ILLNESS: The patient is a very pleasant 63-year-old white female with medical history significant for end-stage renal disease due to diabetic nephropathy. She has been followed with Dr. Aldana and she is on peritoneal dialysis. She is not 100% sure about set up on her PD. She thinks it is about 8 or 9 liters overnight with old 2.5% of dianeal and total exchanges are 5 exchanges with a total time of 9 hours. She presents with the complaints of chest pain. Cardiology has seen the patient and planning to do cardiac catheterization on Saturday. The patient admits that she missed her dialysis on Saturday and this week due to malfunctioning of her machine. PAST MEDICAL HISTORY: 1. 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 2. End-stage renal disease due to diabetic nephropathy. 3. History of hypertension. 4. History of tobaccoism. SOCIAL HISTORY: She quit smoking a year ago. The patient still makes good amount of urine. FAMILY HISTORY: No history of renal disease. SOCIAL HISTORY: Former smoker, quit a year ago. MEDICATIONS: Prior to admission reviewed. REVIEW OF SYSTEMS: Positive for chest pain as mentioned earlier, but she states now she feels better. PHYSICAL EXAMINATION: GENERAL: She is awake, alert, oriented, no acute distress at the time of my examination. VITAL SIGNS: Blood pressure 170/86, heart rate is 103, respiration is 18, afebrile. HEENT: [place] [address] CONSULTATION Name: AUBREE ECKERT Room: [address] IN ..#: [id number] Admission: 01/10/19 Attend Phys: William Deleon MD Discharge: 01/16/19 Date of : 57 Report #: [id number] NECK: Supple. LUNGS: Decreased air movements at the bases. CARDIOVASCULAR: Regular rate. She has got very decreased first tone and then a holosystolic murmur 4/6 best heard at the left sternal border. ABDOMEN: Soft. PD catheter in place. No tenderness, no redness around the catheter. LOWER EXTREMITIES: No edema. LABORATORY REPORT: Hemoglobin 9.9, potassium 4.0, BUN 46, creatinine 8.1. Sodium 132. Troponin is 0.88. ASSESSMENT: 1. End-stage renal disease, on peritoneal dialysis. 2. Chest pain with minimally elevated troponin. 3. Problem is her valve, I think it is her mitral valve, so Cardiology is on the case. 4. Diabetes mellitus type 2. 5. Hypertension. PLAN: We will set up her peritoneal dialysis. Follow I's and O's, follow on potassium and overall volume. Thank you very much for asking my opinion and assistance in providing dialysis on the patient. <ELECTRONICALLY SIGNED> By: Bart Ardon MD 01/20/19 1007 1315 [id number] Ardon MD /[facility]
--- NOTE | 2019-01-20 10:08 | CON ---
[address] [address] CONSULTATION Name: AUBREE ECKERT Room: [address] IN M.R.#: [id number] Admission: 01/10/19 Attend Phys: William Deleon MD Discharge: 01/16/19 Date of : 57 Report #: [id number] THIS REPORT FOR: //name// CC: William Colin DATE OF SERVICE: 01/10/2019 REASON FOR CONSULTATION: Chest pain. HISTORY OF PRESENT ILLNESS: The patient is a 63-year-old dialysis patient who presents with hypertensive urgency and chest discomfort. Her resting ECG demonstrates a sinus rhythm and LVH, but no diagnostic ST segment abnormalities. We are asked to see her because her troponin I was 0.88. She admits to chest pain occurring at rest with high blood pressures. It is left-sided. It is nonradiating. She has been short of breath with activity with her higher blood pressures. She has been retaining fluid because she did miss peritoneal dialysis 2 times this week. Apparently, she had some issues with her machine malfunctioning. She denies palpitations. She presents in sinus rhythm. She denies any bleeding episodes. She denies GI, bleeding symptoms. PAST MEDICAL HISTORY: She was evaluated in 10/2018 with a pharmacologic nuclear stress test, which was negative for ischemia. She has a history of grossly normal LV systolic function. At evaluation at that time, she was found to have smrgjxuo-kr-bqdgcr mitral regurgitation as well as aortic valve disease in the gjmh-or-athdezrr range; aortic stenosis; malignant hypertension; end-stage renal disease, on hemodialysis; history of pneumonia; diabetes mellitus. HOME MEDICATIONS: Include carvedilol 25 mg p.o. b.i.d., insulin, Crestor 25 mg daily, Aldactone 25 mg daily, Plavix 75 mg daily, oxycodone p.r.n., montelukast p.r.n., Crestor 10 mg daily, Protonix 40 mg b.i.d. PAST SURGICAL HISTORY: Bilateral DVTs in 2002. SOCIAL HISTORY: She is a former smoker. FAMILY HISTORY: Positive for heart disease. REVIEW OF SYSTEMS: GASTROINTESTINAL: No nausea, vomiting, hematemesis. GENITOURINARY: No dysuria or hematuria. CARDIOVASCULAR: Positive chest pain, [place] [address] CONSULTATION Name: AUBREE ECKERT Room: [address]#: [id number] Admission: 01/10/19 Attend Phys: William Deleon MD Discharge: 01/16/19 Date of : 57 Report #: [id number] ENDOCRINE: Positive diabetes, positive hyperlipidemia. RENAL: Positive renal failure. SKIN: No rashes. GENERAL: No fevers or chills. PULMONARY: No wheezing or cough. OBJECTIVE: VITAL SIGNS: Blood pressure now is 180/91, pulse rate is 99, respiratory rate is 16. GENERAL: This is a pleasant middle-aged woman. She is in no apparent distress. HEENT: Eyes: EOMs intact. No facial asymmetry. NECK: Supple. No jugular venous distention. CARDIOVASCULAR: Regular, systolic murmur. ABDOMEN: Soft, nontender. EXTREMITIES: No peripheral edema. PULMONARY: Breath sounds are clear. DIAGNOSTIC STUDIES: Chest x-ray shows cardiomegaly, pulmonary vascular congestion with bilateral infiltrates. LABORATORY DATA: Hemoglobin is 9.9, white blood cell count 11.2, platelet count is 344,000. Sodium is 132, potassium 4.0, BUN is 46, creatinine is 8.1. IMPRESSION: 1. Acute diastolic heart failure. 2. Mitral regurgitation. 3. Chest pain. 4. Diabetes. 5. Noncompliance. 6. End-stage renal disease. At this point in time, given her continued symptoms of chest discomfort and slight cardiac troponin level, I think she should be evaluated with heart catheterization, especially in light of her insulin requiring diabetes. At the time, we will also evaluate her mitral valve disease as this seems more significant than her aortic valve disease. We will adjust her blood pressure medications and may be an issue of compliance before altering her doses. <ELECTRONICALLY SIGNED> By: Paul Barrett MD, FACC 01/20/19 1008 1226 [id number] Barrett MD, FACC /nt
== END 2019-01-16 15:59 | DRG 280 ==
LOC: M.ERS 09:01 → M.TBA-ER 10:21 → M.2W 10:21
PROVIDERS: Emergency Medicine; Internal Medicine; Internal Medicine Cardiovascular Disease; ADMIT Internal Medicine
PROC: 3E1M39Z Irrigation of Peritoneal Cavity using Dialysate, Percutaneous Approach (ICD-10-PCS; principal; 2019-01-10)
PROC: B215YZZ Fluoroscopy of Left Heart using Other Contrast (ICD-10-PCS; 2019-01-12)
PROC: B211YZZ Fluoroscopy of Multiple Coronary Arteries using Other Contrast (ICD-10-PCS; 2019-01-12)
PROC: 02JA3ZZ Inspection of Heart, Percutaneous Approach (ICD-10-PCS; 2019-01-12)
PROC: 4A023N7 Measurement of Cardiac Sampling and Pressure, Left Heart, Percutaneous Approach (ICD-10-PCS; 2019-01-12)
PROC: 3E1M39Z Irrigation of Peritoneal Cavity using Dialysate, Percutaneous Approach (ICD-10-PCS; 2019-01-12)
DX: I21.4 Non-ST elevation (NSTEMI) myocardial infarction (principal); N18.6 End stage renal disease; J81.0 Acute pulmonary edema; I50.31 Acute diastolic (congestive) heart failure; I63.231 Cerebral infarction due to unspecified occlusion or stenosis of right carotid arteries; J81.1 Chronic pulmonary edema; E87.1 Hypo-osmolality and hyponatremia; G93.40 Encephalopathy, unspecified; I62.9 Nontraumatic intracranial hemorrhage, unspecified; M84.48XA Pathological fracture, other site, initial encounter for fracture; I13.2 Hypertensive heart and chronic kidney disease with heart failure and with stage 5 chronic kidney disease, or end stage renal disease; M81.0 Age-related osteoporosis without current pathological fracture; I34.0 Nonrheumatic mitral (valve) insufficiency; E11.65 Type 2 diabetes mellitus with hyperglycemia; E11.51 Type 2 diabetes mellitus with diabetic peripheral angiopathy without gangrene; E87.70 Fluid overload, unspecified; E11.22 Type 2 diabetes mellitus with diabetic chronic kidney disease; D63.8 Anemia in other chronic diseases classified elsewhere; E87.6 Hypokalemia; E83.39 Other disorders of phosphorus metabolism; I25.10 Atherosclerotic heart disease of native coronary artery without angina pectoris; E11.649 Type 2 diabetes mellitus with hypoglycemia without coma; F32.9 Major depressive disorder, single episode, unspecified; Z86.718 Personal history of other venous thrombosis and embolism; Z98.49 Cataract extraction status, unspecified eye; Z88.0 Allergy status to penicillin; Z87.891 Personal history of nicotine dependence; Z91.19 Patient's noncompliance with other medical treatment and regimen; Z82.49 Family history of ischemic heart disease and other diseases of the circulatory system; Z83.3 Family history of diabetes mellitus

== ENCOUNTER 2019-01-16 15:26 | Inpatient (IN) | payer MEDICAID ==
[~2019-01-16] VITALS: Ht 152.4 cm; Wt 52.7 kg
--- NOTE | ~2019-01-16 | CON ---
[address] [address] CONSULTATION Name: AUBREE ECKERT Room: [address] IN M.R.#: [id number] Admission: 01/16/19 Attend Phys: Ivy Hahn DO Discharge: Date of : 57 Report #: [id number] THIS REPORT FOR: //name// CC: Juan M Hahn DATE OF SERVICE: 02/14/2019 HISTORY OF PRESENT ILLNESS: This is a pleasant 63-year-old female, with past medical history significant for hypertension, diabetes, end-stage renal disease on dialysis and stroke, who has been admitted to rehabilitation unit for disability. The GI service has been consulted for evaluation of bright red blood per rectum. Per the nursing staff, the patient had 1 bowel movement, which was black in color and this was followed by a second bowel movement, which had dark red color blood clots last night. This morning, she had another bloody bowel movement. The patient denies any significant abdominal pain, nausea, vomiting, diarrhea, hematemesis or coffee-ground emesis. The patient also denies any significant weight loss. Her last colonoscopy was 3 years back when she was noted to have 3 colonic polyps. PAST MEDICAL HISTORY: CHF, CVA, diabetes, hypertension, hyperlipidemia, CKD on hemodialysis. PAST SURGICAL HISTORY: Cataract surgery, bladder lift, right hip replacement in 2016. SOCIAL HISTORY: The patient quit smoking a few years back, but has a [id number] history of smoking and has a remote history of alcohol use. Denies any recreational drug use. FAMILY HISTORY: The patient is not aware of any family history of colorectal cancer or Lehman-related neoplasia. PHYSICAL EXAMINATION: VITAL SIGNS: Temperature 36.8, pulse rate 88, blood pressure 137/60, pulse ox 99% on room air. GENERAL: The patient is alert, awake, oriented x 3. HEENT: Pupils are equal, round, reactive to light and accommodation. Mucous membranes are moist. There is no congestion. LUNGS: Clear to auscultation bilaterally. CARDIOVASCULAR: Rate and rhythm regular, S1, S2 present. ABDOMEN: Soft. There is no distention, guarding or rigidity. EXTREMITIES: Warm, well perfused, 2+ pitting edema bilaterally. LABORATORY DATA: Hemoglobin 7.0, hematocrit 20.5, platelet count 235, WBC count 7.6. Sodium 131, potassium 5.3, chloride 94, bicarbonate 28, BUN 96, [place] [address] CONSULTATION Name: AUBREE ECKERT Room: [address] IN [facility]#: [id number] Admission: 01/16/19 Attend Phys: Ivy Hahn DO Discharge: Date of : 57 Report #: [id number] 8.8. ASSESSMENT AND PLAN: A pleasant 63-year-old female, with past medical history as outlined above, who was admitted to the hospital with a stroke and since has been transferred to the rehabilitation unit. Gastroenterology service has been consulted for evaluation of bright red blood per rectum as well as melena that was noted yesterday. The patient's hemoglobin is low, but has remained somewhat stable over the last few days. PLAN: We will proceed with EGD and colonoscopy tomorrow to evaluate this further. By: 1450 [id number] Colon MD /nt
[2019-01-16 14:50] VITALS: BP 134/66
[~2019-01-16 15:26] MED LIST changes: +NORTRIPTYLINE H50 MG PO
--- NOTE | 2019-01-16 18:08 | NUR ---
PATIENT ADMITTED FROM TELEMETRY ALERT AND ORIENTED. STARTED ON PEROTONIAL DIALYSIS. TAKING PO WELL.
[2019-01-16 20:01] VITALS: BP 140/64
[2019-01-17 04:29] LABS: HEMATOCRIT 20.4 % (37.0-47.0); HEMOGLOBIN 7.1 gm/dL (12.0-15.0); MCH 32.3 pg (26.0-34.0); MCHC 34.6 g/dL (28.0-37.0); MCV 93.4 fL (80.0-100.0); MPV 7.6 fl. (7.2-11.1); RBC 2.19 mil/uL (4.20-5.00); RDW-CV 14.3 % (10.5-14.5); WBC 8.5 thou/uL (4.0-11.0)
[2019-01-17 04:37] LABS: CALCIUM 8.8 mg/dL (8.5-10.1); CREATININE 8.8 mg/dL (0.6-1.3); POTASSIUM 5.2 mmol/L (3.5-5.1)
--- NOTE | 2019-01-17 06:09 | NUR ---
assumed patient care at 1900. patietn alert and oriented times four. Resting in bed at this time. receiving peritoneal dialysis. No needs voiced at this time.
[2019-01-17 07:00] VITALS: BP 141/67
--- NOTE | 2019-01-17 15:29 | NUR ---
ASSUMMED CARE OF PT AT 0730, PT ALERT, KNOWS NAME AND IN HOSPITAL, FORGETFUL, KEEPS EYES TIGHTLY SHUT AT TIMES AND NEED TO ASK PT TO OPEN SO SHE CAN SEE TO DO TASK, OTHER TIMES PT SEEMS TO SEE WITHOUT DIFFICULTY, WHEN LUNCH TRAY CAME PT TOOK COVER OFF REACHED FOR BAG OF CHIPS OPENED AND SEEMED TO HAVE NO DIFFICULTY SEEING ITEMS ON TRAY, WHEN ASKED SPECIFIC QUESTIONS REGARDING , PERITONEAL DIALYSIS ETC, PT STATES "I DONT KNOW" AND SEEMS UNABLE TO REMEMBER PREVIOUS INFORMATION, PT TRANSFERS WITH ASSIST OF 1, GB WALKER, PT DOES STATE SHE THINKS SHE IS DEPRESSED, PERITONEAL DIALYSIS TUBES INTACT IN ABDOMEN, APETITE GD, PT COMPLAINS OF HEADACHE X 1, MEDICATED WITH TYLENOL WITH GD RELIEF, PT DOES VOID PER TOILET X 1 THIS SHIFT, CONCERNED REGARDING PLAN FOR DISCHARGE IF SHE WILL BE HAVING STENTS PLACED IN HEART AND CAROTID BEFORE SHE IS DISCHARGED HOME, PARTICIPATED IN ALL THERAPIES, HOURLY ROUNDING COMPLETED, ASSESSMENT COMPLETE, WILL CONTINUE TO MONITOR.
[2019-01-17 19:55] VITALS: BP 123/55
--- NOTE | 2019-01-18 05:20 | NUR ---
ASSUMED PATIENT CARE AT 1900. PATIENT ALERT AND ORIENTED TIMES FOUR. VERBALIZED UNHAPPINESS WITH HAVING TO BE HERE BUT, ALSO GLAD THAT SHE DOES NOT HAVE TO BE OUT DRIVING IN THIS WEATHER. ABLE TO TRANSFER TO TOILET WITH MIN ASSISST. CLOTHING MANAGEMENT AND TOILETING NEEDS ARE MAX ASSISST. ON PERITONEAL DIALYSIS THROUGH THE NIGHT. MINOR COMPLAINTS OF PAIN IN ABD, PATIENT CLAIMED THAT IT WAS GAS BUBBLES, RELIEF NOTED AFTER BM. HOURLY ROUNDING AND TIRE RECAPPER COMPLETED CHARTED
[2019-01-18 08:13] VITALS: BP 123/47
--- NOTE | 2019-01-18 17:56 | NUR ---
AM ASSESSMENT AND VITAL SIGNS COMPLETED DOCUMENTED. PT REFUSED TO GET OUT OF BED TODAY EXCEPT TO GO TO THE BATHROOM. PT HAS BEEN RESTARTED ON PERITONEAL DIALYSIS AND IS TOLERATING IT WELL AT THIS TIME. NO ACUTE DISTRESS, FALL PRECAUTIONS AND HOURLY ROUNDING CONTINUE.
[2019-01-18 19:00] VITALS: BP 101/78
--- NOTE | 2019-01-19 05:12 | NUR ---
ASSUMED CARES AT 1920. ALERT AND ORIENTED. DENIED ANY PAIN. TOOK PILLS WHOLE WITHOUT ISSUES. ON PERITONEAL DIALYSIS DURING THE NIGHT. MIN ASSIST WITH GAIT BELT AND WALKER. BSC. TURNS SELF IN BED. NO ISSUES OVERNIGHT. CALL LIGHT IN REACH AND BED ALARM ON.
[2019-01-19 08:00] VITALS: BP 156/65
--- NOTE | 2019-01-19 12:01 | NUR ---
Nutrition: Consult for Rehab admit. Pt on peritoneal dialysis at [facility]. Uncontrolled DM. RX: MVI, statin, insulin. Labs: BG 200s, BUN 49, cr 8.8, GFR5, K+ 5.2, Na 127, alb 1.5, prealb 19.6. Pt is eating 50-100% of CHO controlled diet. Wt is at usual of 125#. Will follow pt weekly on Rehab. Low to mild risk.
--- NOTE | 2019-01-19 16:05 | NUR ---
PT HAS PARTICIPATED WITH THERAPIES AND CALLS FOR ASSIST NEEDED.BG WAS HIGH AT LUNCH WITH ROUTINE INSULIN DOSE GIVEN.PT DENIES PAIN. PT WAS TAKEN OFF PERITONEAL DIALYSIS EARLY THIS AM BY DIALYSIS NURSE WHO STATED SHE WILL BE BACK THIS EVENING TO RECONNECT PT. PT REMAINS ALERT AND ORIENTATED.PT TRANSFERRS WITH MIN ASSIST GAITBELT AND WALKER. HOURLY ROUNDING CONTINUES.
--- NOTE | 2019-01-19 16:53 | NUR ---
SW met with pt to complete initial assessment, introduce self, and SW role on inpt rehab unit. Pt was with and mother in law. Pt was alert and oriented to self. Pt lives at home with , pt did not remember her address. Pt was independent prior to hospitalization. Pt said that he had been off of work for a while and needs to go back to work. Pt may need DME and in home services (Medicaid) at dc. SW to continue to follow to assist with safe dc planning.
[2019-01-19 19:15] VITALS: BP 134/60
--- NOTE | 2019-01-20 05:37 | NUR ---
ASSUMED CARES AT 1920. ALERT AND ORIENTED. PLEASANT. DENIED ANY PAIN, SOA, DIZZINESS. AT 2200, CALL CENTER SUPPORT CONSULTANT FINALLY ARRIVED TO HOOK PT UP TO PERITONEAL DIALYSIS. THIS WILL RUN FOR 9 HRS. MIN ASSIST WITH GAIT BELT AND WALKER. UP TO BATHROOM OR BSC. DID HAVE BM. HS SNACK GIVEN. SLEPT MOST OF THE NIGHT. NO ISSUES OVERNIGHT. USING CALL LIGHT APPROPRIATELY. BED ALARM ON.
[2019-01-20 08:00] VITALS: BP 91/46
[2019-01-20 16:11] VITALS: BP 155/57
--- NOTE | 2019-01-20 16:46 | NUR ---
PT PROGRESSING TOWARDS GOALS THIS SHIFT. PARTICIPATED WITH THERAPY. PT UP TO BATHROOM WITH STB, GB, AND WALKER. ITEMS PLACED IN VISUAL FIELD. PT A&OX4 WITH SOME CONFUSION/FORGETFULNESS NOTED. PT CONTINENT TO B&B. NO OTHER CONCERNS AT THIS TIME. CLWR. WCTM.
[2019-01-20 20:31] VITALS: BP 129/61
--- NOTE | 2019-01-20 21:00 | NUR ---
RESTING QUIETLY IN BED AND WATCHING TV. HAS PERITONEAL DIALYSIS THAT WAS SET UP BY DIALYSIS NURSE EARLIER. DRESSING ON ABD DRY/INTACT. DENIES DISCOMFORT. SNACK PROVIDED. TOOK MEDS WHOLE WITH WATER.
--- NOTE | 2019-01-21 05:20 | NUR ---
RESTED ON/OFF. RESTLESS AT TIMES. DENIES PAIN. HOURLY ROUNDING IN PROGRESS.
[2019-01-21 08:15] VITALS: BP 146/63
--- NOTE | 2019-01-21 16:59 | NUR ---
VICKI, Dr Hahn and med student met with pt to review team conference summary and plan for pt to remain on rehab unit continuing therapies for one more week with reteam next Saturday and plan for dc next Saturday afternoon. Therapy recommending family training on Saturday. SW called pt son Chad and reviewed team conference summary and discussed dc planning of pt to be home with family and possibly [facility] in the future. Pt son did not express any concerns or questions at this time. SW to continue to follow to assist with safe dc planning.
[2019-01-21 20:05] VITALS: BP 142/50
--- NOTE | 2019-01-21 20:45 | NUR ---
SITTING UP IN BED WATCHING TV. PATIENT STATES IS TRYING TO STAY AWAKE LONG SHE CAN SO SHE WILL SLEEP BETTER TONIGHT. AGREED TO TRY AMBIEN TONIGHT. PERITONEAL DIALYSIS TUBING CONNECTED. TOOK MEDICATIONS WHOLE WITH WATER. SNACK PROVIDED.
[2019-01-22 04:25] LABS: ABSOLUTE BASOPHILS 0.1 thou/uL (0.0-0.2); ABSOLUTE EOSINOPHILS 0.2 thou/uL (0.0-0.7); ABSOLUTE NEUTROPHILS 5.1 thou/uL (1.6-8.1); BASOPHILS 0.8 %; EOSINOPHILS 2.2 %; HEMATOCRIT 20.4 % (37.0-47.0); LYMPHOCYTES 13.7 %; MCH 32.1 pg (26.0-34.0); MCHC 33.7 g/dL (28.0-37.0); MCV 95.3 fL (80.0-100.0); MONOCYTES 13.4 %; MPV 7.3 fl. (7.2-11.1); NUCLEATED RBCS 0 /100WBC; PLATELET COUNT* 441 thou/uL (150-400); POLYS 69.9 %; RBC 2.14 mil/uL (4.20-5.00); RDW-CV 15.8 % (10.5-14.5); WBC 7.2 thou/uL (4.0-11.0)
[2019-01-22 04:42] LABS: ALBUMIN 1.9 g/dL (3.4-5.0); CALCIUM 8.2 mg/dL (8.5-10.1); CREATININE 9.3 mg/dL (0.6-1.3); POTASSIUM 4.4 mmol/L (3.5-5.1); TOTAL BILIRUBIN 0.2 mg/dL (<0.1-1.0)
[2019-01-22 05:02] LABS: HEMOGLOBIN 6.9 gm/dL (12.0-15.0)
--- NOTE | 2019-01-22 05:30 | NUR ---
RESTED BETTER TONIGHT BUT STILL HAD SHORT PERIODS OF RESTLESSNSS. DENIES DISCOMFORT. DR. CALVILLO NOTIFIED VIA YOU CALL MD OF CRITICAL HGB IF 6.9. NO CALL BACK YET. PERONTINEAL DIALYSIS COMPLETE. HOURLY ROUNDING IN PROGRESS.
[2019-01-22 06:10] LABS: MCHC 33.9 g/dL (28.0-37.0); MCV 94.4 fL (80.0-100.0); MPV 6.9 fl. (7.2-11.1); RBC 2.12 mil/uL (4.20-5.00); RDW-CV 15.3 % (10.5-14.5); WBC 8.3 thou/uL (4.0-11.0)
[2019-01-22 06:12] LABS: HEMOGLOBIN 6.8 gm/dL (12.0-15.0)
[2019-01-22 07:59] VITALS: BP 115/49
[2019-01-22 15:05] VITALS: BP 129/60; BP 145/68; BP 148/65; BP 152/72
--- NOTE | 2019-01-22 16:33 | NUR ---
AM ASSESSMENT AND VITAL SIGNS COMPLETED DOCUMENTED. PT C/O HEAD COLD SYMPTOMS AND STATES IT WILL JUST HAVE TO PASS WHEN ASKED IF ANYTHING WOULD HELP HER FEEL BETTER. PT IS RECEIVING ONE UNIT OF PRBC, PRE MEDICATED WITH TYLENOL AND WILL BE GIVEN FUROSEMIDE POST TRANSFUSION. FALL PRECAUTIONS AND HOURLY ROUNDING CONTINUE.
--- NOTE | 2019-01-22 18:38 | NUR ---
BLOOD TRANSFUSION COMPLETED, PT TOLERATED WELL. PT IS NOW IN BED, PERITONEAL DIALYSIS HAS BEEN STARTED.
[2019-01-22 20:14] VITALS: BP 187/83
[2019-01-22 21:30] VITALS: BP 174/86
[2019-01-22 23:15] VITALS: BP 137/65
--- NOTE | 2019-01-23 05:32 | NUR ---
ASSUMED CARES AT 1920. ALERT AND ORIENTED. PLEASANT. DENIED ANY NEED FOR PAIN MEDS. HAS HEAD COLD AND COUGH. SALINE LOCK TO LEFT FOREARM. PERITONEAL DIALYSIS DURING THE NIGHT. OLIGURIA. BOXED LUNCH GIVEN FOR HS SNACK. SLEPT SOME. NO ISSUES OVERNIGHT. CALL LIGHT IN REACH AND BED ALARM ON.
[2019-01-23 07:00] VITALS: BP 144/73
[2019-01-23 11:11] VITALS: BP 90/70
--- NOTE | 2019-01-23 14:28 | NUR ---
pt has large rash over back and reports itching. NOTIFIED AND WILL COME TO SEE PT AGAIN AND WRITE ORDERS.PT REMAINS ALERT AND ORIENTATED.
--- NOTE | 2019-01-23 16:06 | NUR ---
PATIENT WITH RASH ON BACK. DR NOTIFIED ORDER FOR BENADRYL WHICH WAS GIVEN. CONT. TO MONITOR.
[2019-01-23 20:00] VITALS: BP 189/82
[2019-01-24 01:35] VITALS: BP 128/64
[2019-01-24 04:33] LABS: HEMATOCRIT 25.1 % (37.0-47.0); HEMOGLOBIN 8.7 gm/dL (12.0-15.0); MCH 31.3 pg (26.0-34.0); MCHC 34.7 g/dL (28.0-37.0); MCV 90.2 fL (80.0-100.0); MPV 6.9 fl. (7.2-11.1); RBC 2.78 mil/uL (4.20-5.00); WBC 8.5 thou/uL (4.0-11.0)
[2019-01-24 04:49] LABS: % SATURATION 49 % (20-39); IRON 98 ug/dL (50-175)
[2019-01-24 04:50] LABS: CALCIUM 8.5 mg/dL (8.5-10.1); PHOSPHORUS* 5.1 mg/dL (2.5-4.9); POTASSIUM 4.9 mmol/L (3.5-5.1)
--- NOTE | 2019-01-24 05:19 | NUR ---
ASSUMED CARE AT 1930. PATIENT RESTING IN BED. PERITONEAL DIALYSIS CONTINUING. PATIENT TURNS SELF EASILY. TAKES PILLS WHOLE WITH WATER. UP WITH SBA, GAIT BELT, WALKER. SALINE LOCK TO LT FOREARM. DENIES ITCHING FROM RASH TO BACK. BLOOD PRESSURE WAS ELEVATED AT BEGINNING OF SHIFT, BUT IT WAS BEFORE HS MEDS WERE TAKEN. RECHECKED BLOOD PRESSURE AFTER THOSE HAD TIME TO TAKE EFFECT, 128/64, PULSE 88. NO C/O PAIN. HOURLY ROUNDS CONTINUE. BED ALARM ON. CALL LITE IN REACH.
[2019-01-24 07:30] VITALS: BP 174/69
--- NOTE | 2019-01-24 17:37 | NUR ---
PT VSS THIS SHIFT WITH HYPOGLYCEMIA EPISODE THIS MORNING AND IS REQUESTING REDUCED OR NO INSULIN THE REST OF THIS SHIFT. PT TOLERATING DIET THIS SHIFT. PT LFA TO BE REMOVED DUE TO NON-USE OF PIV LINE. PT HAS RASH ON BACK THAT IS NOT CAUSING PT ANY PROBLEMS THIS SHIFT. PT TOLERATED PD OVERNIGHT THIS SHIFT AND PLASTICS HEAT WELDER DISCONNECTED PT AND STATED THEY WOULD RETURN TO RECONNECT PT THIS EVENING. PT TURNED OFF CHAIR ALARM ON HER OWN AND GOT INTO BED THIS SHIFT, PT EDUCATED TO CALL OUT FOR AMBULATION NEEDS. WILL CONTINUE TO MONITOR AND ASSESS.
[2019-01-24 20:49] VITALS: BP 164/75
--- NOTE | 2019-01-25 00:32 | NUR ---
ASSUMED CARE AT 1930. PATIENT RESTING IN BED. TURNS SELF EASILY. TAKES MEDS WHOLE WITH WATER. NO C/O PAIN. ON PERITONEAL DIALYSIS. DRESSING TO AREA C/D/I. REFUSED INSULIN THIS PM DESPIE BLOOD SUGAR OF 317. NO C/O RASH ITCHING. REINFORCED TO CALL FOR AMBULATION NEEDS. BED ALARM ON. CALL LITE IN REACH. HOURLY ROUNDS CONTINUE.
--- NOTE | 2019-01-25 06:35 | NUR ---
RESTED THROUGH THE NIGHT. NO C/O PAIN. PERITONEAL DIALYSIS CONTINUES. TURNS SELF IN BED. HOURLY ROUNDS CONTINUE. BED ALARM ON. CALL LITE IN REACH.
[2019-01-25 08:33] VITALS: BP 166/79
--- NOTE | 2019-01-25 16:46 | NUR ---
PATIENT RESTING IN BED. RECEIVES DIALYSIS IN ROOM. UP WITH SUPERVISION TO/FROM THE RESTROOM. DENIES ANY COMPLAINTS OF PAIN OR DISCOMFORT. FEEDS SELF WITH SET UP HELP ONLY. WILL CONT. WITH PLAN OF CARE.
[2019-01-25 19:45] VITALS: BP 199/95
[2019-01-25 22:25] VITALS: BP 194/96
--- NOTE | 2019-01-25 22:58 | NUR ---
ASSUMED CARE AT 1930. PATIENT SET OFF BED ALARM, SAFETY EDUCATION REINFORCED. TO TOILET, HAD BM PER TOILET. DOES OWN HYGINE AND CLOTHING ADJUSTMENT. ON PERITONEAL DIALYSIS, THIS TUBING REACHES TOILET. TAKES PILLS WHOLE WITH WATER. REFUSED HS INSULIN BECAUSE "I DIDN'T TAKE IT LAST NIGHT AND I WAS GOOD THIS MORNING." BLOOD PRESSURE UP WITH INITIAL VS, GIVEN SCHEULED MEDS, THEN RECHECKED, STILL ELEVATED. SEE INTERVENTIONS. GIVEN PRN HYDRALAZINE, SEE MAR. PATIENT TURNS SELF, BED ALARM ON. CALL LITE IN REACH. HOURLY ROUNDS CONTINUE.
[2019-01-26 04:20] LABS: HEMATOCRIT 26.1 % (37.0-47.0)
[2019-01-26 04:43] LABS: CALCIUM 8.1 mg/dL (8.5-10.1); CREATININE 9.4 mg/dL (0.6-1.3); PHOSPHORUS* 6.2 mg/dL (2.5-4.9); POTASSIUM 4.4 mmol/L (3.5-5.1)
[2019-01-26 05:43] VITALS: BP 156/75
--- NOTE | 2019-01-26 05:56 | NUR ---
RESTED ALL NIGHT. PATIENT STATES THAT SHE REALLY DOES NOT SLEEP. PATIENT TURNS SELF. NO C/O PAIN. PERITONEAL DIALYSIS CONTINUES. HOURLY ROUNDS CONTINUE, CALL LITE IN REACH. BED ALARM ON.
--- NOTE | 2019-01-26 07:07 | NUR ---
DIALYSIS TOOK OFF 1200 ML.
[2019-01-26 08:10] VITALS: BP 166/72
[2019-01-26 19:45] VITALS: BP 163/74
[2019-01-27 04:59] LABS: ABSOLUTE BASOPHILS 0.1 thou/uL (0.0-0.2); ABSOLUTE EOSINOPHILS 0.2 thou/uL (0.0-0.7); ABSOLUTE LYMPHOCYTES 1.2 thou/uL (0.8-5.3); ABSOLUTE MONOCYTES 0.6 thou/uL (0.0-1.2); ABSOLUTE NEUTROPHILS 8.1 thou/uL (1.6-8.1); BASOPHILS 0.6 %; EOSINOPHILS 1.8 %; HEMATOCRIT 24.6 % (37.0-47.0); HEMOGLOBIN 8.6 gm/dL (12.0-15.0); LYMPHOCYTES 11.4 %; MCH 32.1 pg (26.0-34.0); MCV 91.6 fL (80.0-100.0); MONOCYTES 6.2 %; NUCLEATED RBCS 0 /100WBC; PLATELET COUNT* 404 thou/uL (150-400); RBC 2.69 mil/uL (4.20-5.00); RDW-CV 18.8 % (10.5-14.5); WBC 10.1 thou/uL (4.0-11.0)
[2019-01-27 05:06] LABS: CALCIUM 8.2 mg/dL (8.5-10.1); CREATININE 9.7 mg/dL (0.6-1.3); POTASSIUM 4.6 mmol/L (3.5-5.1)
--- NOTE | 2019-01-27 05:29 | NUR ---
ASSUMED CARE AT 1920. ALERT AND ORIENTED. PLEASANT. ON PERITONEAL DIALYSIS DURING THE NIGHT. DENIED ANY NEED FOR PAIN MEDS. C/O NOT BEING ABLE TO SLEEP WELL. MELATONIN GIVEN. PT ASLEEP DURING ROUNDS. CALL LIGHT IN REACH AND BED ALARM ON.
[2019-01-27 08:00] VITALS: BP 182/90
--- NOTE | 2019-01-27 16:54 | NUR ---
PT HAS PARTICIPATED WITH THERAPIES AND CALLS FOR ASSIST TO BATHROOM NEEDED.PT DOES VOID DURING DAY WELL ON PERITONEAL DIALYSIS AT NIGHT. PT DENIES PAIN BUT DOES C/O BEING TIRED. AWARE OF LOW SODIUM AND FEELS THIS IS IN PTS RAMGE. PT HAS C/O FEELING OF COLD AND SINUS DRAINAGE WITH RESPIRATORY TX'S STARTED AND PT HAS TOLERATED WELL.PT AMBULATES WITH WALKER,GAITBELT AND ASSIST OF 1.PT REMAINS ALERT AND ORIENTATED.HOURLY ROUNDING CONTINUES.
[2019-01-27 20:00] VITALS: BP 179/79
[2019-01-27 23:37] VITALS: BP 177/89
[2019-01-28 04:05] LABS: ALBUMIN 2.2 g/dL (3.4-5.0); CALCIUM 8.6 mg/dL (8.5-10.1); CREATININE 9.3 mg/dL (0.6-1.3); PHOSPHORUS* 6.4 mg/dL (2.5-4.9); POTASSIUM 4.9 mmol/L (3.5-5.1)
--- NOTE | 2019-01-28 04:54 | NUR ---
ASSUMED CARE AT 1920. ALERT AND ORIENTED. PLEASANT. STILL HAS CONGESTION. NOT COUGHING MUCH. LUNGS WHEEZY AND COURSE. NEB TX GIVEN SCHEDULED. PERITONEAL DIALYSIS OVERNIGHT. DENIED NEED FOR PAIN MEDS. SEROQUEL GIVEN FOR SLEEP. PT HAS BEEN SLEEPING DURING ROUNDS. NO ISSUES OVERNIGHT. CALL LIGHT IN REACH AND BED ALARM ON.
[2019-01-28 07:30] VITALS: BP 172/93
--- NOTE | 2019-01-28 11:24 | NUR ---
Nutrition: Follow up note. Wt is fluctuating 117-128#. Appetite is good. Alb 22, prealb 35.9, BG 300s. On PD. Physician indicated severe PCM - defer DX. Will continue to follow weekly.
--- NOTE | 2019-01-28 16:11 | NUR ---
SW and med student met with pt to review team conference summary and plan for reteam next Saturday; pt in agreement with plan. SW met with pt and pt later to review team conference again and plan for reteam. Pt relieved pt will have more time and pt and pt hopeful for pt to remain until surgery. SW to continue to follow to assist with safe dc planning.
--- NOTE | 2019-01-28 18:36 | NUR ---
PATIENT HAS BEEN UP FOR MEALS. AMBULATES TO/FROM THE DINNING AREA WITH SUPERVISION. DENIES COMPLAINTS OF PAIN. DIALYSIS AT NIGHT IN ROOM. CONT. WITH PLAN OF CARE AT THIS TIME.
[2019-01-28 20:30] VITALS: BP 166/81
--- NOTE | 2019-01-29 05:14 | NUR ---
ASSUMED CARE AT 1920. ALERT AND ORIENTED. ON PERITONEAL DIALYSIS DURING THE NIGHT. ACCUCHECK 333 AT HS. PT ONLY AGREEABLE TO TAKING LANTUS 10 UNITS AND LISPRO 10 UNITS. DENIED ANY PAIN. CONTINUES WITH CONGESTION. NEBS SCHEDULED. SLEPT LITTLE OFF AND ON. CALL LIGHT IN REACH AND BED ALARM ON.
[2019-01-29 07:37] VITALS: BP 152/71
--- NOTE | 2019-01-29 15:34 | NUR ---
PT HAS PARTICIPATED WITH THERAPIES AND REMAINS ALERT AND ORIENTATED.PT HAS BEEN REFUSING RESP TX'S BUT C/O HEAD COLD SYMPTOMS.PT DENIES PAIN. PT IS CONTINENT OF B+B AND CALLS FOR ASSIST TO BATHROOM. PT AMBULATES WITH WALKER,GAITBELT AND MIN ASSIST OF 1. PT HAS PERITONEAL DIALYSIS AT HS. HOURLY ROUNDING CONTINUES.
[2019-01-29 20:04] VITALS: BP 127/66
--- NOTE | 2019-01-30 00:28 | NUR ---
ASSUMED CARE AT 1930. PATIENT RESTING IN BED. TURNS SELF. TAKES PILLS WHOLE WITH WATER ALL AT ONE TIME. PERITONEAL DIALYSIS IN PROGRESS. DRESSING TO ABD C/D/I. BLOOD SUGAR ELEVATED 488, RECHECKED DIFFERENT MACHING 433. DR. CALVILLO CONTACTED AND NO CHANGE IN ORDERS, TO GIVE PREVIOUSLY SCHEDULED SLIDING SCALE AND LANTUS. PATIENT RELUCTANT FOR INSULIN FOR CONCERN OF LOWERING BLOOD SUGAR TOO FAR, WILL RECHECK AROUND 0100. HAS LABS SCHEDULED FOR THIS AM INCLUDING VENOUS GLUCOSE. DENIES PAIN. HOURLY ROUNDS CONTINUE. BED ALARM ON. CALL LITE IN REACH.
[2019-01-30 04:25] LABS: HEMATOCRIT 25.6 % (37.0-47.0); HEMOGLOBIN 8.6 gm/dL (12.0-15.0); MCHC 33.6 g/dL (28.0-37.0); MCV 92.3 fL (80.0-100.0); RBC 2.78 mil/uL (4.20-5.00); RDW-CV 19.5 % (10.5-14.5); WBC 11.5 thou/uL (4.0-11.0)
[2019-01-30 04:38] LABS: ALBUMIN 2.1 g/dL (3.4-5.0); CREATININE 9.1 mg/dL (0.6-1.3); MAGNESIUM 2.6 mg/dL (1.8-2.4); TOTAL BILIRUBIN 0.4 mg/dL (<0.1-1.0)
[2019-01-30 04:47] LABS: ALBUMIN 2.2 g/dL (3.4-5.0); CALCIUM 8.2 mg/dL (8.5-10.1); CREATININE 9.3 mg/dL (0.6-1.3); PHOSPHORUS* 5.7 mg/dL (2.5-4.9)
--- NOTE | 2019-01-30 05:53 | NUR ---
RESTED THROUGH THE NIGHT. AWAKENED FOR LABS. NO C/O OFFERED. TURNS SELF EASILY. PERITONEAL DIALYSIS CONTINUES. HOURLY ROUNDS CONTINUE. BED ALARM ON. CALL LITE IN REACH.
--- NOTE | 2019-01-30 06:18 | NUR ---
EXTRA BLOOD SUGARS CHECKED BECAUSE PATIENT C/O WE WERE GIVING HER TOO MUCH INSULIN. CURRENTLY 165.
[2019-01-30 08:16] VITALS: BP 155/74
--- NOTE | 2019-01-30 09:19 | NUR ---
Nutrition: Consult received for approval of Nepro oral supplement - RD will order.
--- NOTE | 2019-01-30 13:30 | NUR ---
PATIENT RESTING IN WITHOUT COMPLAINTS. AMBULATES WITH SLOW STEADY GAIT USING ROLLING WALKER. LUNGS CLEAR, CONGESTION COUGH AND NO SIGN OF DISTRESS. CONT. PLAN OF CARE AT THIS TIME.
[2019-01-30 19:58] VITALS: BP 219/106
[2019-01-30 21:30] VITALS: BP 178/85
--- NOTE | 2019-01-31 01:38 | NUR ---
ASSUMED CARE @ 1939-01/30-SAT.AWAKE IN BED.PERITONEAL DIALYSIS IN PROGRESS. WANTS SIDERAILS X2 UP @ NIGHT.BED ALARM PUT ON @ 1939.BP @ 1929-/106. ASYMPTOMATIC.BP RE-CHECKED @ .ACCUCHECK-492 @ 2144.PATIENT ONLY WANTS 12 UNITS LISPRO @ HS INSTEAD OF USUAL DOSE OF 23 UNITS.TURNS SELF @ NIGHT.ON HOURLY ROUNDS.PLASTIC JOINT MAKER DOING ODD HOUR ROUNDS.
--- NOTE | 2019-01-31 05:09 | NUR ---
SLEEPING @ 2200 & SLEPT GOOD ALL NIGHT.TURNS SELF @ NIGHT.REFUSED HS SNACK.NO VOIDING DURING NIGHT.PERITONEAL DIALYSIS MACHINE NOTES COMPLETED @ 0400.
[2019-01-31 07:00] VITALS: BP 175/73
[2019-01-31 08:00] VITALS: BP 175/73
--- NOTE | 2019-01-31 15:47 | CON ---
[address] [address] CONSULTATION Name: AUBREE ECKERT Room: [address] ADM IN M.R.#: [id number] Admission: 01/16/19 Attend Phys: Ivy Hahn DO Discharge: Date of : 57 Report #: [id number] THIS REPORT FOR: //name// CC: Juan M Hahn DATE OF SERVICE: 01/18/2019 CONSULTING PHYSICIAN: Ivy Hahn DO REASON FOR NEPHROLOGY CONSULTATION: End-stage renal disease. She is on peritoneal dialysis. REASON FOR ADMISSION: For rehabilitation. HISTORY OF PRESENT ILLNESS: This is a 63-year-old female who has history of end-stage renal disease, she is on peritoneal dialysis, CCPD, and recently discharged from [facility] when she was admitted for non-STEMI. The patient underwent a cardiac catheterization on 01/10/2019, found to have 90% stenosis of mid RCA. Unfortunately, no intervention could be done at that time. After the procedure she had altered mental status. She was found to have bilateral CVAs, a large left occipital lobe CVA. Later on also developed a mild hemorrhagic transformation on 01/16/2019; the MRI showed hemorrhagic transformation of left occipital lobe cerebrovascular accident. We continued PD uneventfully throughout and now she is in the rehabilitation. Repeat cardiac catheterization for intervention was postponed. She had some problems with her memory, but it looks like they are improving, she did not have any acute complaints this morning. ALLERGIES: PENICILLIN. REVIEW OF SYSTEMS: Kind of limited because she does tend to forget rather, but she is not having any shortness of breath. A 10-point review of systems is negative. PAST MEDICAL HISTORY: Includes uncontrolled diabetes, hypertension, osteoporosis, recent CVA, non-STEMI, vitamin D deficiency, osteoarthritis, DVT, end-stage renal disease on peritoneal dialysis, anxiety, dyspnea, peripheral vascular disease. PAST SURGICAL HISTORY: Includes right hip surgery, back surgery x 3, bladder lift, cataract surgery, bilateral fem-pop and cardiac catheterization. CURRENT MEDICATIONS: Are all reviewed. SOCIAL HISTORY: She uses tobacco. No alcohol or illicit [place] [address] CONSULTATION Name: AUBREE ECKERT Room: [address] IN [facility]#: [id number] Admission: 01/16/19 Attend Phys: Ivy Hahn DO Discharge: Date of : 57 Report #: [id number] home with her . FAMILY HISTORY: Father of diabetes and cardiac disease. PHYSICAL EXAMINATION: VITAL SIGNS: Blood pressure is 123/47, pulse rate is 82, temperature is 36.7, respiratory rate is 16 and pulse ox is 98% and she is on room air. GENERAL: She is awake and alert and she is oriented to person and partially to time, and she is oriented to place. HEAD, EYES, EARS, NOSE AND THROAT: Mucous membranes are moist. NECK: There is no JVD. CHEST: Bilaterally clear to auscultation. No crackles or wheezing. CARDIOVASCULAR: S1, S2 normal. No murmurs heard. ABDOMEN: Soft, nondistended, nontender. PD catheter is intact in left lower quadrant. No erythema or drainage around the site. EXTREMITIES: Lower extremities, no edema. NEUROLOGIC: Gross neurologic function currently seems to be intact. She does get a little bit confused. PSYCHIATRIC: Mood seems to be normal. LABORATORY DATA: Hemoglobin 7.1. Sodium has dropped to 127. Iron saturation was 26% recently and potassium was 5.2 yesterday. Other labs were reviewed. IMAGING: There is no imaging to be reviewed currently. ASSESSMENT: 1. End-stage renal disease, on peritoneal dialysis. 2. Chest pain, recent uun-FD-msyrmnelp myocardial infarction. 3. Hypertension, blood pressure is controlled. 4. Diabetes type 2. 5. Hyponatremia. 6. Anemia of chronic kidney disease, iron saturation 26%. 7. Recent left occipital, right cerebellar and right frontal strokes with hemorrhagic transformation in the left occipital area. 8. Cervical fracture, likely chronic. PLAN: 1. We will continue peritoneal dialysis. We will be doing exchanges with 1500 mL dwell volume, 5 exchanges over 9 hours and using 2.5% dextrose solution, and we will continue that. The patient has been having good ultrafiltration with that. 2. I have added erythropoietin weekly to help with anemia. 3. I have held Aldactone for now [place] [address] CONSULTATION Name: AUBREE ECKERT Room: [address] IN ..#: [id number] Admission: 01/16/19 Attend Phys: Ivy Hahn DO Discharge: Date of : 57 Report #: [id number] Thank you for this consultation. I have discussed the plan with the patient as well as the patient's . We will continue to follow along with you. <ELECTRONICALLY SIGNED> By: Minal Patiño MD 01/31/19 1547 0934 [id number] Patiño MD /nt
--- NOTE | 2019-01-31 18:37 | NUR ---
AM ASSESSMENT AND VITAL SIGNS COMPLETED DOCUMENTED. PT CONTINUES TO C/O A HEAD COLD AND HAS A LOOSE COUGH. ALL THERAPY SESSIONS COMPLETED SCHEDULED AND PERITONEAL DIALYSIS WILL BE STARTED SOON. PT WENT TO THE DINING ROOM FOR LUNCH AND DINNER TODAY. PT REFUSED FULL INSULIN DOSE AT BREAKFAST AND LUNCH BUT GLUCOSE WAS 375 AT DINNER SO FULL DOSE WAS GIVEN. FALL PRECAUTIONS AND HOURLY ROUNDING CONTINUE.
[2019-01-31 20:04] VITALS: BP 141/73
--- NOTE | 2019-02-01 01:41 | NUR ---
ASSUMED CARE @ -SAT.AWAKE IN BED WATCHING TV.PERITONEAL DIALYSIS IN PROGRESS.BED ALARM ALREADY ON @ 1929.ACCUCHECK @ .HIMS ANSWERING AMISHA CALLED @ 2120.DR COCHRAN RETURNED CALL @ 2123.NO ORDER GIVEN.TURNS SELF @ NIGHT.AWAKENED @ -SUN.TO CHECK BLOOD SUGAR-281.TOOK ALL PEACHES & ONE PACKAGE DANIELA CRACKERS HS SNACKS.COUGHING EPISODES @ 0010 & 0100. ON HOURLY ROUNDS.ACADEMIC GUIDANCE SPECIALIST DOING ODD HOUR ROUNDS.
--- NOTE | 2019-02-01 05:29 | NUR ---
SLEEPING SINCE 2200 & SLEPT GOOD ALL NIGHT AFTER COUGHING EPISODES X2 ENDED. BRP W/ ASSIST X1 ONLY DURING NIGHT.
[2019-02-01 08:26] VITALS: BP 153/68
[2019-02-01 20:00] VITALS: BP 160/75
--- NOTE | 2019-02-02 01:34 | NUR ---
ASSUMED CARE @ 1924-02/01-SUN.AWAKE IN BED W/ HOB UP.PERITONEAL DIALYSIS IN PROGRESS.WATCHING TV.TURNS SELF @ NIGHT.ON HOURLY ROUNDS.HARBORMASTER DOING ODD HOUR ROUNDS.
--- NOTE | 2019-02-02 05:16 | NUR ---
SLEEPING SINCE 2300.TOOK ALL PEACHES & 3 PACKAGES DANIELA CRACKERS HS SNACKS.PERITONEAL DIALYSIS COMPLETED @ 0515.NO VOIDING DURING NIGHT.
[2019-02-02 08:59] VITALS: BP 143/64
--- NOTE | 2019-02-02 17:50 | NUR ---
ASSUMMED CARE OF PT AT 0730, PT ALERT AND ORIENTED, PT TRANSFERS WITH SBA, AMBULATES TO DININGROOM FOR DINNER, VOIDS PER TOILETX 1, HARRY SONIA NOTED THIS AM, NO COUGH NOTED, DENIES NEED FOR PAIN, MEDICATION, PARTICIPATED IN ALL THERAPIES, PERITONEAL ACCESS DEVICE INTACT, TAKING FOOD AND FLUIDS WELL, HOURLY ROUNDING COMPLETED, ASSESSMENT COMPLETE, WILL CONTINUE TO MONITOR.
[2019-02-02 19:54] VITALS: BP 122/63
--- NOTE | 2019-02-02 22:50 | NUR ---
ASSUMED CARE AT 1930. PATIENT RESTING IN BED. TURNS SELF EASILY. PERITONEAL DIALYSIS CONTINUES. TAKES PILLS WHOLE WITH WATER. REFUSED HS SNACK. REFUSED LISPRO INSULIN, DID TAKE LANTUS. BLOOD SUGAR AT HS WAS 272. NO C/O PAIN. HOURLY ROUNDS CONTINUE. BED ALARM ON. CALL LITE IN REACH.
--- NOTE | 2019-02-03 05:48 | NUR ---
RESTED THROUGH THE NIGHT. HAD ONE BM PER BSC. PERITONEAL DIALYSIS TUBING NOT LONG ENOUGH TO REACH TO TOILET. NO C/O PAIN. HOURLY ROUNDS CONTINUE. BED ALARM ON. CALL LITE IN REACH.
[2019-02-03 07:54] VITALS: BP 157/70
--- NOTE | 2019-02-03 14:45 | NUR ---
SW called pt in preparation for team conference. Pt hopeful for plan to remain to be pt would continue therapies until dc to surgery. Pt expressed concern for pt cognition and pt not ready to dc home alone at times. Pt continues to work and SW asked if there were any other suppor persons available to be with pt at dc but pt said that they do not have anyone else available to assist nor do they have any finances to be able to hire extra help for pt supervision/assistance needed. Pt mentioned that he will be with pt tomorrow afternoon to manage the conversation for pt to apply for disability. SW to continue to follow to assist with safe dc planning.
--- NOTE | 2019-02-03 17:08 | NUR ---
ASSUMMED CARE OF PT AT 0730, PT ALERT AND ORIENTED, PT TRANSFERS WITH ASSIST OF 1 ,GB WALKER, PT DENIES PAIN, DRESSING CHANGED TO DIALYSIS ACCESS SITE, PT AMBULATED TO DININGROOM FOR LUNCH AND DINNER, TAKING FOOD AND FLUIDS WELL, PARTICIPATED IN ALL THERAPIES, HOURLY ROUDNING COMPLETED, ASSESSMENT COMPLETE, WILL CONTINUE TO MONITOR.
[2019-02-03 20:00] VITALS: BP 145/66
--- NOTE | 2019-02-04 05:33 | NUR ---
ASSUMED CARES AT 1920. ALERT AND ORIENTED. PLEASANT. NASAL CONGESTION WITH OCCASIONAL COUGH. DENIED ANY NEED FOR PAIN MEDS. ON PERITONEAL DIALYSIS OVERNIGHT. ACCUCHECK AT HS WAS 307 BUT PT ONLY AGREEABLE TO TAKING LISPRO 15 UNITS. HS SNACK GIVEN PER PT REQUEST. SLEPT OFF AND ON. CALL LIGHT IN REACH AND BED ALARM ON.
[2019-02-04 08:20] VITALS: BP 170/65
--- NOTE | 2019-02-04 16:50 | NUR ---
VICKI and Dr Hahn met with pt and pt to review team conference summary and plan for pt to remain on rehab unit at least another week with plan for team to reassess pt length of stay during team conference next Sunday 02/11. Also with possibility for pt to remain on rehab unit and dc to surgery with the chance that pt will be ready for surgery soon. Pt and pt in agreement with plan. SW to continue to follow to assist with safe dc planning.
--- NOTE | 2019-02-04 18:44 | NUR ---
PATIENT ALERT AND ORIENTED X 4, DOWN FOR FOLLOW UP MRI, D[facility]LSIS AT [facility]. ONETIME ORDER FOR NORCO AFTER MRI. NO FURTHER COMPLAINTS. CONT. WITH PLAN OF CARE
[2019-02-04 20:16] VITALS: BP 124/61
--- NOTE | 2019-02-04 23:53 | NUR ---
ASSUMED CARE AT 1930. PATIENT RESTING IN BED. PERITONEAL DIALYSIS CONTINUES. DSSG C/D/I. MOVES WELL IN BED AND TURNS SELF. TAKES PILLS WHOLE WITH WATER. TOOK INSULIN ORDERED. HAD HS SNACK OF PEACHES AND ORANGE SHERBET. NO C/O PAIN. HOURLY ROUNDS CONTINUE. BED ALARM ON. CALL LITE IN REACH.
[2019-02-05 03:46] LABS: HEMOGLOBIN 7.5 gm/dL (12.0-15.0); MCH 31.6 pg (26.0-34.0); MCHC 34.2 g/dL (28.0-37.0); MCV 92.4 fL (80.0-100.0); MPV 7.3 fl. (7.2-11.1); RBC 2.38 mil/uL (4.20-5.00); WBC 11.5 thou/uL (4.0-11.0)
[2019-02-05 04:04] LABS: CALCIUM 7.8 mg/dL (8.5-10.1); CREATININE 8.5 mg/dL (0.6-1.3); POTASSIUM 4.2 mmol/L (3.5-5.1)
--- NOTE | 2019-02-05 05:49 | NUR ---
TURNS SELF. COUGHING AT TIMES THROUGH NIGHT. PERITONEAL DIALYSIS CONTINUES. HOURLY ROUNDS CONTINUE. BED ALARM ON. CALL LITE IN REACH.
--- NOTE | 2019-02-05 06:46 | NUR ---
WHILE PASSING MORNING MEDS, PATIENT C/O LEFT FOREARM PAIN. REPEATEDLY DENIES CHEST PAIN OR PRESSURE. PATIENT HAD BEEN LYING ON LEFT SIDE WITH LT ARM UNDER PILLOW, BUT PATIENT DENIES CORRELATION BETWEEN PAIN AND SLEEPING POSITION. POINTS TO AREA ON LT FOREARM THAT HAS OLD BRUISING NOTED. SPO2 100%, TEMP 97.5, BLOOD PRESSURE 133/56 PULSE 75 AND REGULAR.
[2019-02-05 20:00] VITALS: BP 152/68
[2019-02-06 04:57] LABS: CALCIUM 8.5 mg/dL (8.5-10.1); CREATININE 8.7 mg/dL (0.6-1.3); MAGNESIUM 2.8 mg/dL (1.8-2.4); POTASSIUM 4.4 mmol/L (3.5-5.1)
[2019-02-06 04:58] LABS: HEMATOCRIT 22.5 % (37.0-47.0); HEMOGLOBIN 7.8 gm/dL (12.0-15.0); MCH 32.2 pg (26.0-34.0); MCHC 34.6 g/dL (28.0-37.0); MCV 93.1 fL (80.0-100.0); MPV 7.7 fl. (7.2-11.1); RBC 2.41 mil/uL (4.20-5.00); RDW-CV 18.3 % (10.5-14.5)
--- NOTE | 2019-02-06 05:43 | NUR ---
ASSUMED CARE AT 1920. ALERT AND ORIENTED. PLEASANT. DENIED ANY NEED FOR PAIN MEDS. TOOK PILLS WHOLE. DOES HAVE NONPRODUCTIVE COUGH. WAS ON PERITONEAL DIALYSIS OVERNIGHT. SLEEPING DURING ROUNDS. CALL LIGHT IN REACH AND BED ALARM ON.
[2019-02-06 08:00] VITALS: BP 150/66
--- NOTE | 2019-02-06 13:49 | NUR ---
ASSUMED CARE AT 0730. ALERT ORIENTED PLEASANT COOPERATIVE. HX OF CVA MOVES ALL EXTREMETIES WELL. TRANSFERS WITH SBA G BELT WALKER. AMBULATED X 2 TO TOILET TO VOID AND HAD A LARGE BM BEFORE 1200 ABLE TO DO HYGEINE AND CLOTHING ADJUSTMENTS. TAKES MEDS WITHOUT DIFFICULTY FEEDS SELF APPETITE GOOD. ACCUCHECKS WERE 197 AND 229. PARTICIPATES IN THERAPIES. SLEEPY TODAY. DENIES PAIN OR CONCERNS. PERITONEAL DIALYSIS WILL BE LATER AFTERNOON.
--- NOTE | 2019-02-06 14:41 | NUR ---
PT. HAD C/O BACK PAIN MEDICATED WITH PRN PAIN MED RATES A 9 ON PAIN SCALE. RESTING IN RECLINER AFTER P.T. SESSION COMPLETE.
[2019-02-06 20:00] VITALS: BP 126/53
--- NOTE | 2019-02-07 06:37 | NUR ---
ASSUMED CARES AT 1920. ALERT AND ORIENTED. PLEASANT. ON PERITONEAL DIALYSIS OVERNIGHT. PAIN MED GIVEN FOR BACK PAIN. COUGH IMPROVED SOME. ACCUCHECK 157 AT HS. PT REFUSED ANY S/S INSULIN. SLEPT MOST OF THE NIGHT. CALL LIGHT IN REACH AND BED ALARM ON.
[2019-02-07 09:37] VITALS: BP 148/68
--- NOTE | 2019-02-07 10:57 | NUR ---
PATIENT RESTING IN BED THIS AM. UP IN RECLINER FOR ST. DENIES ANY COMPLAINTS AT THIS TIME. CONT. WITH CURRENT PLAN OF CARE AT THIS TIME.
--- NOTE | 2019-02-07 17:48 | NUR ---
PATIENT HAS BEEN UP TO THE BR WITH SUPERVISION. DENIES ANY COMPLAINTS. STILL COUGHING PERIODICALLY. CONT. WITH CURRENT PLAN OF CARE.
[2019-02-07 20:00] VITALS: BP 157/65
--- NOTE | 2019-02-08 05:10 | NUR ---
RESTING QUIELTY WITH EYES CLOSED MOST OF THE NOC, USING CALL LIGHT FOR NEEDS, DENIES PAIN OR DISCOMFORT, PARITONEAL DIALYSIS DURING SHIFT WITHOUT COMPLICATIONS. BED REMAINS IN LOW AND LOCKED POSITION, CALL LIGHT REMAINS IN REACH, SAFETY MAINTAINED.
[2019-02-08 07:31] VITALS: BP 137/65
[2019-02-08 20:00] VITALS: BP 115/44
--- NOTE | 2019-02-09 05:34 | NUR ---
ASSUMED PT CARE AT 1920. PT ALERT AND ORIENTED, POLITE AND COOPERATIVE WITH CARES. PT UP TO BATHROOM TO VOID AT BEGINNING OF SHIFT. PT ON PERITONEAL DIALYSIS OVERNIGHT. NO C/O PAIN OR DISTRESS. COUGH IMPROVED. USES CALL LIGHT APPROPRIATELY. CALL LIGHT AND FREQUENTLY USED ITEMS WITHIN REACH. HOURLY ROUNDING IN PROGRESS, WILL CONTINUE TO MONITOR.
[2019-02-09 06:35] VITALS: BP 126/52
--- NOTE | 2019-02-09 12:22 | H ---
[address] [address] HISTORY AND PHYSICAL Name: AUBREE ECKERT Room: [address] IN M.R.#: [id number] Admission: 01/16/19 Attend Phys: Ivy Hahn, DO Discharge: Date of : 57 Report #: [id number] THIS REPORT FOR: //name// CC: Juan M Hahn DATE OF SERVICE: 01/16/2019 HISTORY OF PRESENT ILLNESS: This is a 63-year-old female with history of end-stage renal disease, on peritoneal dialysis, admitted to inpatient rehabilitation to facilitate safe discharge home status post acute hospitalization at [facility] beginning on 01/10/2019. She did have an NSTEMI, underwent cardiac catheterization on 01/10/2019, found to have 90% stenosis of mid RCA. During that procedure or in the post-procedure period, she did have altered mental status, visual perceptual disturbances and MRI on 01/13/2019 showed bilateral CVAs and a large left occipital lobe cerebrovascular accident. She is right-hand dominant. She also has a stable C2 fracture incidentally. MRI on 01/16/2019 showed mild hemorrhagic transformation of the left occipital lobe CVA. She has multiple medical comorbidities including uncontrolled diabetes with a random glucose of 258, uncontrolled hypertension, vitamin D deficiency, history of DVT and other multiple medical comorbidities. No significant changes since the preadmission screening. Current level of function is [id number] assistance of 1-2 depending on therapy, activity and time of day, ambulating 70 feet with a front-wheeled walker and [id number] impairment of comprehension, expression, social interaction, problem solving and memory. Estimated length of stay is 14-16 days with discharge disposition to the home setting where she does have spouse, walker, wheelchair and accessible house. PAST MEDICAL HISTORY: Includes uncontrolled diabetes; hypertension; osteoporosis; vitamin D deficiency; OA; history of DVT; diastolic congestive heart failure; pulmonary edema; PMA; colitis; end-stage renal disease, on peritoneal dialysis; chronic kidney disease stage 5; recent NSTEMI; anxiety; dyspnea and peripheral vascular disease. PAST SURGICAL HISTORY: Right hip surgery, back surgery x 3, bladder lift, cataract surgery, bilateral femoral-popliteal bypass and a cardiac catheterization. ALLERGIES: PENICILLIN. MEDICATIONS: Reviewed and reconciled by myself and are available in the MAR. SOCIAL HISTORY: Tobacco use, but no alcohol [place] [address] HISTORY AND PHYSICAL Name: AUBREE ECKERT Room: [address] IN [facility].#: [id number] Admission: 01/16/19 Attend Phys: Ivy Hahn DO Discharge: Date of : 56 Report #: [id number] FAMILY HISTORY: Arthritis, diabetes and cardiac disease. REVIEW OF SYSTEMS: A 14-point review of systems is done and is negative, except as mentioned in the HPI. Specifically, no fever, chest pain, shortness of breath, abdominal pain or distention, change in bowel or change in bladder. PHYSICAL EXAMINATION: GENERAL: Alert and oriented, in no apparent distress. VITAL SIGNS: Reviewed and are stable. HEENT: Head atraumatic, normocephalic. Pupils equal, round and reactive. ABDOMEN: Soft, nontender and nondistended. NEUROLOGIC: Cranial nerves 2-12 are grossly intact. No focal neuro deficits. A 5/5 strength, bilateral upper and lower extremities. SKIN: Warm and dry. No rashes or lesions noted. ASSESSMENT: 1. Bilateral cerebrovascular accidents, including left occipital lobe with hemorrhagic extension noted by followup MRI. 2. Multiple medical comorbidities, requiring acute medical care. 3. Recent non-ST elevation myocardial infarction post cardiac catheterization, complicated by altered mental status and cerebrovascular accident. 4. End-stage renal disease, on peritoneal dialysis. PLAN: 1. Admission to inpatient rehabilitation. 2. PT, OT, speech, language, case management, nursing and HIMS to make evaluations and recommendations. 3. Renal and Neuro to follow for above-noted medical conditions and issues. 4. Team weekly and plan of care is pending. <ELECTRONICALLY SIGNED> By: Ivy Hahn DO 02/09/19 1222 1116 [id number] Hahn DO /nt
--- NOTE | 2019-02-09 12:22 | PLAN ---
[address] [address] REHAB UNIT PLAN OF CARE Name: AUBREE ECKERT Room: [address] ADM IN M.R.#: [id number] Admission: 01/16/19 Attend Phys: Ivy Hahn DO Discharge: Date of : 57 Report #: [id number] THIS REPORT FOR: //name// CC: Juan M Hahn This is a 63-year-old right hand dominant female, admitted to inpatient rehabilitation to facilitate safe discharge home status post acute hospitalization with chest pain, dyspnea, diagnosed with NSTEMI and underwent cardiac catheterization due to 90% RCA stenosis. In the post-procedure period she had altered mental status, was diagnosed with bilateral CVAs, and a left occipital lobe CVA, which did eventually convert to a hemorrhagic transformation noted by MRIs on 01/13/2019 and 11/15/2018 with deficits in all three areas and medically complex. Previous level of function was modified independent to minimum assistance of one depending on therapy, activity and time of day. Current level of function is minimum to moderate assistance of 1-2 depending on therapy, activity and time of day. Ambulating 70 feet with front-wheeled walker with severe impairment of comprehension, expression, social interaction, problem solving and memory. Medical prognosis is good. Rehabilitation prognosis is good. Estimated length of stay is 14-16 days with discharge disposition to the home setting. Physical Therapy will see the patient 60-90 minutes per day, 5 days per week, working on upper and lower body strength, balance, coordination, navigation. Occupational Therapy will work with the patient 60-90 minutes per day, 5 days per week, working on upper and lower body strength, balance, coordination, navigation, bathing, dressing, and toileting. Speech and Language Pathology will work with the patient 30-90 minutes per day, 5 days per week, working on comprehension, expression, social interaction, problem solving and memory. This is an overall plan of care, may change from time to time. We will team weekly and make changes to plan of care as needed. <ELECTRONICALLY SIGNED> By: Ivy Hahn DO 02/09/19 1222 1118 [id number] Hahn DO /nt
--- NOTE | 2019-02-09 14:02 | NUR ---
ASSUMED CARE AT 0730. ALERT ORIENTED PLEASANT COOPERATIVE. HX OF CVA ABLE TO MOVE ALL EXTREMETIES. TRANSFERS WITH SBA G BELT WALKER AND AMBULATES TO DR FOR MEALS. C/O LOW BACK PAIN AFTER P.T. SESSION MEDICATED X 1 WITH HYDROCODONE WITH SOME RELIEF STATED. STILL HAS COUGH AND NASAL CONGESTION COUGH IS NON PRODUCTIVE. DR. DIXON WAS CONSULTED. ORDERED CLEOCIN. PT. HAS HAD SOME NOSEBLEEDS TODAY. DR. MENDES WAS NOTIFIED. SLEEPY USUAL DOESNT SLEEP WELL AT NIGHT. APPETITE FAIR AT BREAKFAST GOOD AT LUNCH. DR. NEELY ROUNDED THIS AFTERNOON.
[2019-02-09 20:00] VITALS: BP 144/66
--- NOTE | 2019-02-10 05:26 | NUR ---
ASSUMED PT CARE AT 1930. PT ALERT AND OREINTED X4, POLITE AND COOPERATIVE WITH CARES. HX OF CVA WITH MINIMAL RESIDUAL. TAKES PILLS WHOLE ALL AT ONCE WITH WATER WITHOUT DIFFICULTY. TRANSFERS WITH SBA, GAIT BELT AND WALKER. PT ON PERITONEAL DIALYSIS OVERNIGHT. COUGH IMPROVED. NO NOSEBLEEDS OVERNIGHT. PT C/O FOOT CRAMP, MASSAGED AND WARM BLANKET APPLIED, PT RELAXED AND WENT TO SLEEP. USES CALL LIGHT APPROPRIATELY. CALL LIGHT AND FREQUENTLY USED ITEMS WITHIN REACH. BED ALARM ON FOR SAFETY. HOURLY ROUNDING IN PROGRESS, WILL CONTINUE TO MONITOR.
[2019-02-10 07:00] VITALS: BP 128/62
--- NOTE | 2019-02-10 07:51 | CON ---
[address] [address] CONSULTATION Name: AUBREE ECKERT Room: [address] ADM IN M.R.#: [id number] Admission: 01/16/19 Attend Phys: Ivy Hahn DO Discharge: Date of : 57 Report #: [id number] THIS REPORT FOR: //name// CC: Juan M Hahn DATE OF SERVICE: 02/09/2019 INFECTIOUS DISEASE CONSULTATION: ATTENDING PHYSICIAN: Dr. Teresa Carpenter. REASON FOR EVALUATION: Acute sphenoid sinusitis. HISTORY OF PRESENT ILLNESS: Chart reviewed, patient examined. This is a 63-year-old woman with diabetes mellitus with severe sequelae including end-stage renal disease, on peritoneal dialysis. She does have known vasculopathy, was recently diagnosed with a stroke for which she was admitted on 01/16/2019 to the rehabilitation site, has had several imaging studies including MRIs, most recent one on the which showed acute sphenoid inflammation with air fluid levels consistent with sinusitis. On the clinical interview, she describes significant discomfort associated with it. She does have some postnasal drip. It is not clear if she has had significant fevers. She does have somewhat of poor appetite, although her dry weight has been fairly stable between 117 and 120. She has been on antimicrobial therapy, most recently cefuroxime, prior to that levofloxacin, really has not had any benefit from her standpoint, does have intermittent difficulty breathing and occasional cough. ALLERGIES: LISTED TO PENICILLIN. She describes it as having so long ago. She does not recall, she does not believe it is consistent with anaphylaxis. CURRENT MEDICATIONS: Include insulin, cefuroxime, cyclobenzaprine, hydrocodone, guaifenesin, amlodipine, ipratropium albuterol inhaler, sertraline, quetiapine, insulin, melatonin, sevelamer, modafinil, ergocalciferol, atorvastatin, pantoprazole, carvedilol, montelukast, tizanidine, zolpidem. PAST MEDICAL HISTORY: In addition diabetes with its sequelae, end-stage renal disease, vasculopathy, recent stroke, history of hypertension, osteoporosis, back surgeries, history of DVT, history of depression. SOCIAL HISTORY: Former smoker. No ethanol. FAMILY HISTORY: Noncontributory. REVIEW OF SYSTEMS: A 10-point review of systems is otherwise unremarkable with exception noted [place] [address] CONSULTATION Name: AUBREE ECKERT Room: [address] IN [facility]#: [id number] Admission: 01/16/19 Attend Phys: Ivy Hahn, DO Discharge: Date of : 56 Report #: [id number] PHYSICAL EXAMINATION: GENERAL: She appears chronically ill, undernourished, is pleasant, cooperative. She is in mild distress, undernourished. VITAL SIGNS: Temperature 98.3, pulse 78, respirations 16, blood pressure 126/52. SKIN: Warm, dry, no rashes. HEENT: Normocephalic. Extraocular muscles intact. She has been on significant amount of sinus tenderness. NECK: Supple. LUNGS: Diminished breath sounds. HEART: Regular. ABDOMEN: Distended, soft. There are no peritoneal signs. GENITOURINARY AND RECTAL: Deferred. LABORATORY DATA: CBC from the 8th, white count of 10.0, H and H 7.8 and 22.5, platelets of 224. Electrolytes: Sodium 132, potassium 4.4, chloride 94, bicarbonate is 26, anion gap of 12, BUN and creatinine 83 and 8.7. Venous of the upper extremity showed negative for DVT. MRI of the head from 02/04/2019 subacute infarcts within the posterior inferior right frontal lobe as well as a left frontal lobe, extensive paranasal sinus disease with air fluid level seen within the sphenoid sinuses consistent with acute sphenoid sinusitis. ASSESSMENT: Acute sphenoid sinusitis. The patient seemed not to respond to generally reasonable treatment approaches with systemic antibiotics. I think we have an issue with malabsorption at this point. May benefit from some sort of evaluation. We will discuss with IR, do not have ENT available to us at this point. We would adjust therapy, perhaps include clindamycin and see how she does clinically. <ELECTRONICALLY SIGNED> By: Rajat Martinez MD 02/10/19 0751 [id number] [id number] Martinez MD /nt
--- NOTE | 2019-02-10 14:23 | NUR ---
ASSUMED CARE AT 0730. ALERT ORIENTED PLEASANT COOPERATIVE. HX OF CVA MOVES ALL EXTREMETIES WELL. FORGETFUL AT TIMES. PARTICIPATING IN THERAPIES TRANSFERS WITH SBA G BELT WALKER AMBULATES TO TOILET HAD BMS ABLE TO DO HYGEINE AND CLOTHING ADJUSTMENTS. USES CALL LIGHT APPROPRIATELY FOR ASSIST. APPETITE GOOD AT LUNCH POOR AT BREAKFAST ACCUCHECKS WERE 161 BREAKFAST AND 126 AT LUNCH. C/O PAIN RT. HIP MEDICATED X 1 WITH HYDROCODONE RATES AN [address] TO [address] FOR MEALS.
--- NOTE | 2019-02-10 16:24 | NUR ---
SW spoke with pt in preparation for team conference tomorrow. Pt was concerned with no answers provided about pt possible upcoming surgery. Pt discussed with pt nurse. SW to continue to follow to assist with safe dc planning.
--- NOTE | 2019-02-10 17:57 | NUR ---
PTS. BLOOD SUGAR AT 1715 WAS 63 ASYMPTOMATIC GIVEN MILK AND APPLE JUICE WHICH WAS TAKEN ATE 90% OF SUPPER. WILL RECHECK BLOOD SUGAR AT 1830 HOLD INSULIN AT SUPPER TILL RECHECK AT [address]. TO DR FOR SUPPER MEAL. AMBULATED TO DR WITH WALKER.
[2019-02-10 20:00] VITALS: BP 132/62
[2019-02-11 04:19] LABS: ABSOLUTE BASOPHILS 0.1 thou/uL (0.0-0.2); ABSOLUTE EOSINOPHILS 0.2 thou/uL (0.0-0.7); ABSOLUTE LYMPHOCYTES 1.1 thou/uL (0.8-5.3); ABSOLUTE MONOCYTES 0.9 thou/uL (0.0-1.2); ABSOLUTE NEUTROPHILS 6.1 thou/uL (1.6-8.1); BASOPHILS 1.1 %; EOSINOPHILS 2.9 %; HEMATOCRIT 20.2 % (37.0-47.0); LYMPHOCYTES 13.1 %; MCHC 34.1 g/dL (28.0-37.0); MONOCYTES 10.8 %; MPV 7.8 fl. (7.2-11.1); NUCLEATED RBCS 0 /100WBC; PLATELET COUNT* 207 thou/uL (150-400); POLYS 72.1 %; RBC 2.14 mil/uL (4.20-5.00); RDW-CV 17.5 % (10.5-14.5); WBC 8.5 thou/uL (4.0-11.0)
[2019-02-11 04:21] LABS: CALCIUM 8.2 mg/dL (8.5-10.1); CREATININE 8.7 mg/dL (0.6-1.3); MAGNESIUM 2.6 mg/dL (1.8-2.4); PHOSPHORUS* 6.2 mg/dL (2.5-4.9); POTASSIUM 5.2 mmol/L (3.5-5.1)
[2019-02-11 04:23] LABS: HEMOGLOBIN 6.9 gm/dL (12.0-15.0)
--- NOTE | 2019-02-11 05:03 | NUR ---
ASSUMED CARES AT 1915. ALERT AND ORIENTED. PLEASANT. DENIED ANY NEED FOR PAIN MEDS. OCCASIONAL COUGH. SAYS THAT NASAL BLEEDING HAS IMPROVED. ON PERITONEAL DIALYSIS OVERNIGHT. RECEIVED CALL FROM LAB. HGB: 6.9. MESSAGE SENT TO DR PATEL WITH RESULTS. PER DR GONSALVES HE WILL F/U. NO NEW ORDERS AT THIS TIME. CALL LIGHT IN REACH AND BED ALARM ON. WILL CONTINUE TO MONITOR.
[2019-02-11 07:45] LABS: HEMOGLOBIN 6.7 gm/dL (12.0-15.0)
[2019-02-11 07:46] LABS: HEMATOCRIT 19.9 % (37.0-47.0)
[2019-02-11 07:55] VITALS: BP 126/78
[2019-02-11 10:29] VITALS: BP 146/87
[2019-02-11 10:46] VITALS: BP 107/51; BP 143/59; BP 146/69; BP 154/68
--- NOTE | 2019-02-11 12:30 | NUR ---
PATIENT WITH HGB THIS AM OF 6.7, ORDERS TO TRANSFUSE 1 UNIT OF PRBC'S. PATIENT RECEIVING BLOOD NOW. TOLERATING INFUSION. DENIES COMPLAINTS. VSS. WILL CONT. TO MONITOR.
--- NOTE | 2019-02-11 14:50 | NUR ---
VICKI and Dr Hahn met with pt to review team conference summary and plan for pt to remain on rehab unit and continue therapies to also ensure medical stability. Pt in agreement with plan. SW to continue to follow to assist with safe dc planning.
--- NOTE | 2019-02-11 18:36 | NUR ---
TOLERATED BLOOD TRANSFUSION THIS AM WITHOUT DIFFICULTIES. SHE HAS BEEN SITTING UP IN CHAIR IN ROOM.
[2019-02-11 19:35] VITALS: BP 122/66
--- NOTE | 2019-02-11 19:35 | NUR ---
RESTING QUIETLY IN BED. DENIES DISCOMFORT. PERITONEAL DIALYSIS IN PROGRESS. DRESSING ON ABD OVER PERITONEAL INSERTION SITE DRY/INTACT. SALINE LOCK ON RIGHT FOREARM INTACT AND WITH S/S OF INFECTION, NO EDEMA. DECLINED OFFER OF A SNACK.
--- NOTE | 2019-02-12 05:22 | NUR ---
RESTED QUIETLY. AWAKENED BY LAB AT ABOUT 0355. LAB INFORMED NURSING STAFF THAT WAS UNABLE TO DRAW LAB DUE TO PATIENT JERKING HER ARM AWAY AND THAT THEY WOULD SEND ANOTHER TECH UP LATER. PERITONEAL DIALYSIS TREATMENT COMPLETE. HOURLY ROUNDING IN PROGRESS.
[2019-02-12 07:55] VITALS: BP 136/62
[2019-02-12 12:15] LABS: HEMATOCRIT 20.3 % (37.0-47.0)
[2019-02-12 12:18] LABS: HEMOGLOBIN 6.9 gm/dL (12.0-15.0)
[2019-02-12 12:43] LABS: CREATININE 9.4 mg/dL (0.6-1.3); MAGNESIUM 2.5 mg/dL (1.8-2.4); PHOSPHORUS* 6.4 mg/dL (2.5-4.9)
[2019-02-12 12:44] LABS: POTASSIUM 6.2 mmol/L (3.5-5.1)
--- NOTE | 2019-02-12 17:15 | NUR ---
CARDIOLOGY NURSE CONSULTED REGARDING PT'S ABILITY TO TOLERATE SURGERY. PT WILL NEED TO HAVE A CARDIAC STENT PRIOR TO THE CEA. AT THIS TIME PT CAN NOT BE ANTICOAGULATED FOR STENT PLACEMENT UNTIL HEMMORHAGIC CVA RESOLVES. PT AND HER HAVE BOTH BEEN TOLD NO SURGERIES OR PROCEDURES WILL BE DONE FOR AT LEAST 4- 6 WEEKS FROM NOW. FALL PRECAUTIONS AND HOURLY ROUNDING CONTINUE.
--- NOTE | 2019-02-12 17:17 | NUR ---
SW spoke with pt about possibility of pt not being ready for surgery in the amount of time that pt would have left to be able to continue on inpt rehab. Pt understanding and said that the only 2 places he has heard of that will be acceptable to him are 2 places in [place]... [facility] and [facility]...pt said that he was told they both accepted [place] Medicaid and pt would get care along with some rehab still. Pt said that he would not want pt to go to intermediate but still that there was not someone available as he hopes not to have to quit his 2 jobs to be home with pt. SW to send referrals to above preferences of facilities and continue to follow to assist with safe dc planning.
--- NOTE | 2019-02-12 19:55 | NUR ---
RESTING QUIELTY IN BED AND WATCHING TV. PERITONEAL DIALYSIS IN PROGRESS. DRSSING ON ABD WHERE INSERTION FOR DIALYSIS DRY/INTACT. DENIES DISCOMFORT.
[2019-02-12 20:00] VITALS: BP 133/63
--- NOTE | 2019-02-13 05:38 | NUR ---
RESTED QUIETLY. NO COMPLAINTS VOICED. PERITONEAL DIALYSIS COMPLETED. HOURLY ROUNDING IN PROGRESS.
[2019-02-13 08:00] VITALS: BP 118/51
[2019-02-13 09:51] LABS: HEMATOCRIT 21.7 % (37.0-47.0); HEMOGLOBIN 7.2 gm/dL (12.0-15.0)
[2019-02-13 10:03] LABS: CALCIUM 8.3 mg/dL (8.5-10.1); CREATININE 9.3 mg/dL (0.6-1.3); POTASSIUM 5.5 mmol/L (3.5-5.1)
--- NOTE | 2019-02-13 17:03 | NUR ---
ELECTROTYPER APPRENTICE SPOKE TO THE PATIENT'S SPOUSE TO DISCUSS LTC CHOICES. THE CHOICES THAT THE PAIENT PROVIDED WERE NOT LTC. PATIENT'S SPOUSE INFORMED THAT H HAD CHOSEN [facility] AND [facility] . D/C FRUIT RAISER INFORMED THE PATIENT THAT THOSE WERE NOT TENTS ASSEMBLER CARE FACILITIES. PATIENT'S SPOUSE INFORMS THAT HE IS NOT INTERESTED IN LTC 'SHE WILL JUST BE SENT THERE TO LAY AROUND AND ROT, AND SHE WILL LOOSE EVERYTHING THAT SHE HAD GAINED HERE IN REHAB'. CM WILL F/U WITH PATIENT AND SPOUSE TO DISCUSS PLACEMENT OPTIONS. CM WILL REMAIN AVIALABLE TO ASSIST AND FOLLOW NEEDED.
[2019-02-13 18:17] VITALS: BP 133/65
--- NOTE | 2019-02-13 18:46 | NUR ---
ASSUMMED CARE OF PT AT 0730, PT ALERT AND ORIENTED, FORGETFUL AT TIMES, TRANSFERS WITH SBA, GB WALKER, VOIDED X 1 PER TOILET, HAD BLACK STOOL X2 WITH BRIGHT RED BLOOD IN TOILET WITH STOOL, PHYSICIAN NOTIFIED AND ORDER OBTAINED TO INFUSE 1 UNIT PRBC, TRANSFUSION STARTED AT 1830, PT TOLERATING WELL, PT COMPLAINS OF HEARTBURN THIS EVENING, MEDICATED PER ORDER, PT COMPLAINED OF HEADACHE AND MEDICATED FOR PAIN X 1, PT AMBULATED TO DININGROOM FOR LUNCH, PARTICIPATED IN ALL THERAPIES, PERITONEAL DIALYSIS STARTED, HOURLY ROUNDING COMPLETED, ASSESSMENT COMPLETE, WILL CONTINUE TO MONITOR.
[2019-02-13 19:45] VITALS: BP 128/62; BP 129/52; BP 133/65; BP 141/60; BP 148/72
--- NOTE | 2019-02-14 01:44 | NUR ---
ASSUMED CARE @ 1942-02/13-SATURDAY.AWAKE IN BED W/ HOB UP.PERITONEAL DIALYSIS IN PROGRESS.WANTS ONLY SIDERAILS X2 UP.BED ALARM PUT BON @ 1942.AT 1949,BLOOD TRANSFUSION RATE INCREASED TO 100 ML/HOUR.SEE HOURLY VS WHILE BLOOD INFUSING. SAT UP IN BED @ 2039.ABDOMEN-DISTENDED BUT SOFT.CLAIMS ATE ALL FRUITS SERVED @ DINNER.BLOOD TRANSFUSION COMPLETED @ 2239.SEE VS @ 2299 POST TRANSFUSION.ON FLUID RESTRICTION.ON HOURLY ROUNDS.TURNS SELF @ NIGHT.
[2019-02-14 04:50] LABS: CALCIUM 7.4 mg/dL (8.5-10.1); CREATININE 8.8 mg/dL (0.6-1.3); POTASSIUM 5.3 mmol/L (3.5-5.1)
--- NOTE | 2019-02-14 05:33 | NUR ---
SLEEPING SINCE 2144.REFUSED HS SNACK.NO VOIDING YET.PERITONEAL DIALYSIS COMPLETED @ 0500.SLEPT GOOD ALL NIGHT.
[2019-02-14 07:30] VITALS: BP 137/60
[2019-02-14 13:31] LABS: ABSOLUTE EOSINOPHILS 0.3 thou/uL (0.0-0.7); ABSOLUTE LYMPHOCYTES 1.2 thou/uL (0.8-5.3); ABSOLUTE MONOCYTES 0.8 thou/uL (0.0-1.2); ABSOLUTE NEUTROPHILS 5.4 thou/uL (1.6-8.1); BASOPHILS 0.6 %; EOSINOPHILS 3.5 %; HEMATOCRIT 20.5 % (37.0-47.0); LYMPHOCYTES 15.2 %; MCH 31.9 pg (26.0-34.0); MCHC 34.1 g/dL (28.0-37.0); MCV 93.6 fL (80.0-100.0); MONOCYTES 10.1 %; MPV 8.2 fl. (7.2-11.1); NUCLEATED RBCS 0 /100WBC; PLATELET COUNT* 235 thou/uL (150-400); POLYS 70.6 %; RBC 2.19 mil/uL (4.20-5.00); RDW-CV 17.5 % (10.5-14.5); WBC 7.6 thou/uL (4.0-11.0)
--- NOTE | 2019-02-14 18:03 | NUR ---
ASSUMMED CARE OF PT AT 0730, PT ALERT AND ORIENTED, FORGETFUL, PT TRANSFERS WITH SBA, GB WALKER, PT DENIES PAIN, HAS HARSH NON PRODUCTIVE COUGH, PT STATES SHE FEELS HER EARS ARE PLUGGED DUE TO HER COLD, PT HAD A BLACK STOOL WITH SMALL AMOUNT OF BRIGHT RED BLOOD IN TOILET, GI DR HERE AND WILL DO COLONOSCOPY AND EGD TOMORROW, PREP STARTED PER ORDER, PT EDUCATED ON PROCEDURE, DR. NEELY NOTIFIED AND AGREEABLE,SALINE LOCK PATENT, PERITONEAL DIALYSIS STARTED THIS PM PER DIALYSIS NURSE, PT PARTICIPATED IN ALL THERAPIES, HOURLY ROUNDING COMPLETED ASSESSMENT COMPLETE, WILL CONTINUE TO MONITOR.
[2019-02-14 20:00] VITALS: BP 136/63
[2019-02-15 06:59] VITALS: BP 136/63
--- NOTE | 2019-02-15 07:16 | NUR ---
ASSUMED CARE AT 1920. ALERT AND ORIENTED. C/O HIP PAIN. PAIN MED GIVEN. ACCUCHEK 245 AT HS. PT GIVEN LANTUS 5 UNITS PER PT REQUEST. ONLY ABLE TO DRINK 1.5 LITER OF GO-LYTELY. NPO AFTER MIDNIGHT. HAD NUMEROUS DARK BROWN/MAROON COLORED LIQUID STOOLS UNTIL MIDNIGHT. C/O SORE BOTTOM. IV SALINE LOCK TO LEFT FOREARM. HAD PERITONEAL DIALYSIS OVERNIGHT. MIN ASSIST WITH GAIT BELT. UP TO BSC. BARRIER CREAM APPLIED TO RECTAL AREA. PAGED DR LOZANO AT 0600, DUE TO PT STILL HAVING LIQUID STOOL AND IS NOT CLEAR. PER DR LOZANO, OKAY TO PROCEED WITH PROCEDURE. GIVE 2 TAP WATER ENEMAS. ENEMAS WERE GIVEN. PT HAD MODERATE AMOUNT DARK BROWN LIQUID STOOL. CALL LIGHT IN REACH. BED ALARM ON.
[2019-02-15 08:17] VITALS: BP 132/62
--- NOTE | 2019-02-15 15:40 | NUR ---
ASSUMED CARE AT 0730. ALERT ORIENTED PLEASANT COOPERATIVE. HX OF CVA MOVES ALL EXTREMETIES. TRANSFERS WITH SBA G BELT WALKER AMBULATES TO BR HAD A SMALL BM AFTER LUNCH ABLE TO DO HYGEINE AND CLOTHING ADJUSTMENTS. HAD EGD AND COLONOSCOPY THIS A.M. WITH NEG RESULTS RE BLOODY STOOLS SOME POLYPS NOTED. APPETITE GOOD FOR LUNCH MEAL. HERE AND LEFT AFTER SHE RETURNED FROM PROCEDURES WILL RETURN LATER. USES CALL LIGHT APPROPRIATELY FOR ASSISTANCE. A.M. MEDS GIVEN AFTER SHE RETURNED TO FLOOR.
[2019-02-15 20:00] VITALS: BP 162/89
--- NOTE | 2019-02-16 04:56 | NUR ---
ASSUMED CARES AT 1920. ALERT AND ORIENTED. INITIALLY C/O HEARTBURN BUT NO FURTHER COMPLAINTS REST OF THE NIGHT. ON PERITONEAL DIALYSIS OVERNIGHT. SALINE LOCK TO LEFT FOREARM. C/O HIP PAIN. PAIN MED GIVEN. HAD SMALL SMEAR OF SOFT DARK BROWN STOOL. MIN ASSIST WITH GAIT BELT AND WALKER. UP TO BSC. VOIDED X 1. DOES OWN CARES. SLEPT OFF AND ON. CALL LIGHT IN REACH. BED ALARM ON.
[2019-02-16 07:36] VITALS: BP 123/63
[2019-02-16 15:00] VITALS: BP 105/56
--- NOTE | 2019-02-16 15:42 | NUR ---
ASSUMED CARE AT 0730. ALERT ORIENTED BUT SLEEPY THIS A.M. STATES FEEL ILL A HEADACHE AND RT. HIP PAIN GAVE A HYDROCODONE TAB WITH SOME RELIEF STATED. HX OF CVA MOVING ALL EXTREMITIES WITHOUT DIFFICULTY. SEEMS WEAK AND UNSTEADY WITH TRANSFERS PER THERAPY REPORT. MOANING GROANING WITH ACTIVITY. APPETITE POOR AT BREAKFAST FAIR AT LUNCH. TOOK MEDS WITHOUT DIFFICULTY, TEARFUL THIS A.M. DURING S.T. AND HAD RECEIVED PRN PAIN MED PREVIOUSLY. VS WNL. O2 SAT [address] CHIN HALL AND JOHNIE ALSO AWARE OF PTS. COMPLAINTS STATUS. HAS HAD A COUPLE SOFT LOOSE BMS WITH DARK COLOR SOME RED IN TOILET. PT. ABLE TO DO HYGEINE AND CLOTHING ADJUSTMENTS. HAD RT. HIP X RAY NEGATIVE FOR FX.
[2019-02-16 16:47] VITALS: BP 103/60
--- NOTE | 2019-02-16 17:47 | EKG ---
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 Consider ischemia Compared to ECG 01/11/2019 12:30:52 Left ventricular hypertrophy now present Sinus tachycardia no longer present Electronically Signed On 02-16-2019 17:47:20 CDT by Zachary Awad [email or web address] <ELECTRONICALLY SIGNED> By: Zachary Awad MD, FACC 02/16/19 1747 1605 1605 Zachary Awad MD, FAC /EPI
--- NOTE | 2019-02-16 17:59 | NUR ---
PT. HAD EKG DONE AND SHIVANIAleja GARG READ IT AND SAID PT. HAS ISCHEMIA. CARDIAC ENZYMES WERE ORDERED AND PT. WAS SEEN BY BRITANY ORDERED TRANSFER TO TELEMETRY MILE. PT. HAD LARGE LOOSE INCONTINENCE OF BM IN PULLUPS FARK BROWN WITH REDNESS TING TO STOOL. CLEANSED MARSHA AREAS AND PUT ON FRESH GOWN. RESTING IN BED COMFORTABLE SHECAN BE. COLOR PALE NO DIAPHORESIS. DR. NEELY WAS NOTIFIED AND OK WITH TRANSFER TO ACUTE TELE. NOTIFIED, WILL TRANSFER MILE WITH ROOM AVAILABLE.
[2019-02-16 18:10] VITALS: BP 93/49
--- NOTE | 2019-02-16 18:17 | NUR ---
PT. AWARE WE WILL TRANFER HER TO TELEMETRY FOR MONITORING.
--- NOTE | 2019-02-16 18:54 | NUR ---
PT. WILL BE DISCHARGED TO ROOM 201 REPORT WILL BE GIVEN TO 2 WEST R.N. HERE AND AWARE OF ROOM ASSIGNMENT. WILL TAKE HER BY BED SOON REPORT GIVEN.
[2019-02-16 19:44] LABS: MCH 31.7 pg (26.0-34.0); MCHC 33.6 g/dL (28.0-37.0); MCV 94.3 fL (80.0-100.0); RBC 1.48 mil/uL (4.20-5.00); RDW-CV 17.2 % (10.5-14.5)
[2019-02-16 19:46] LABS: HEMATOCRIT 13.9 % (37.0-47.0); HEMOGLOBIN 4.7 gm/dL (12.0-15.0)
--- NOTE | 2019-02-16 20:13 | NUR ---
RAFAELA PENA GAVE REPORT TO CECILIA PENA. CRITICAL HGB: 4.7, HCT: 13.9 RECEIVED AT 1945 DURING REPORT AND CECILIA PENA INFORMED TO F/U WITH PROVIDER. AT 1954, PT TRANSFERRED TO TELE VIA BED WITH ALL BELONGINGS.
== END 2019-02-16 19:55 | disposition short-term general hospital (02) | DRG 64 ==
LOC: M.REH 15:26 → M.2W 02-16 20:04
PROVIDERS: Family Medicine; Internal Medicine; Internal Medicine Nephrology; Registered Nurse; ADMIT Physical Medicine & Rehabilitation
PROC: 3E1M39Z Irrigation of Peritoneal Cavity using Dialysate, Percutaneous Approach (ICD-10-PCS; principal; 2019-01-17)
PROC: 3E1M39Z Irrigation of Peritoneal Cavity using Dialysate, Percutaneous Approach (ICD-10-PCS; 2019-01-18)
PROC: 3E1M39Z Irrigation of Peritoneal Cavity using Dialysate, Percutaneous Approach (ICD-10-PCS; 2019-01-19)
PROC: 3E1M39Z Irrigation of Peritoneal Cavity using Dialysate, Percutaneous Approach (ICD-10-PCS; 2019-01-21)
PROC: 3E1M39Z Irrigation of Peritoneal Cavity using Dialysate, Percutaneous Approach (ICD-10-PCS; 2019-01-26)
PROC: 3E1M39Z Irrigation of Peritoneal Cavity using Dialysate, Percutaneous Approach (ICD-10-PCS; 2019-01-27)
PROC: 3E1M39Z Irrigation of Peritoneal Cavity using Dialysate, Percutaneous Approach (ICD-10-PCS; 2019-01-29)
PROC: 3E1M39Z Irrigation of Peritoneal Cavity using Dialysate, Percutaneous Approach (ICD-10-PCS; 2019-01-31)
PROC: 3E1M39Z Irrigation of Peritoneal Cavity using Dialysate, Percutaneous Approach (ICD-10-PCS; 2019-02-02)
PROC: 3E1M39Z Irrigation of Peritoneal Cavity using Dialysate, Percutaneous Approach (ICD-10-PCS; 2019-02-03)
PROC: 3E1M39Z Irrigation of Peritoneal Cavity using Dialysate, Percutaneous Approach (ICD-10-PCS; 2019-02-04)
PROC: 3E1M39Z Irrigation of Peritoneal Cavity using Dialysate, Percutaneous Approach (ICD-10-PCS; 2019-02-05)
PROC: 3E1M39Z Irrigation of Peritoneal Cavity using Dialysate, Percutaneous Approach (ICD-10-PCS; 2019-02-06)
PROC: 3E1M39Z Irrigation of Peritoneal Cavity using Dialysate, Percutaneous Approach (ICD-10-PCS; 2019-02-07)
PROC: 3E1M39Z Irrigation of Peritoneal Cavity using Dialysate, Percutaneous Approach (ICD-10-PCS; 2019-02-08)
PROC: 3E1M39Z Irrigation of Peritoneal Cavity using Dialysate, Percutaneous Approach (ICD-10-PCS; 2019-02-09)
PROC: 3E1M39Z Irrigation of Peritoneal Cavity using Dialysate, Percutaneous Approach (ICD-10-PCS; 2019-02-10)
PROC: 3E1M39Z Irrigation of Peritoneal Cavity using Dialysate, Percutaneous Approach (ICD-10-PCS; 2019-02-12)
PROC: 30233N1 Transfusion of Nonautologous Red Blood Cells into Peripheral Vein, Percutaneous Approach (ICD-10-PCS; 2019-02-13)
PROC: 3E1M39Z Irrigation of Peritoneal Cavity using Dialysate, Percutaneous Approach (ICD-10-PCS; 2019-02-14)
PROC: 3E1M39Z Irrigation of Peritoneal Cavity using Dialysate, Percutaneous Approach (ICD-10-PCS; 2019-02-15)
PROC: 0DJ08ZZ Inspection of Upper Intestinal Tract, Via Natural or Artificial Opening Endoscopic (ICD-10-PCS; 2019-02-15)
PROC: 0DJD8ZZ Inspection of Lower Intestinal Tract, Via Natural or Artificial Opening Endoscopic (ICD-10-PCS; 2019-02-15)
DX: I61.1 Nontraumatic intracerebral hemorrhage in hemisphere, cortical (principal); I63.9 Cerebral infarction, unspecified; N18.6 End stage renal disease; E43 Unspecified severe protein-calorie malnutrition; E87.1 Hypo-osmolality and hyponatremia; I50.22 Chronic systolic (congestive) heart failure; I13.2 Hypertensive heart and chronic kidney disease with heart failure and with stage 5 chronic kidney disease, or end stage renal disease; J44.1 Chronic obstructive pulmonary disease with (acute) exacerbation; Z99.2 Dependence on renal dialysis; I25.2 Old myocardial infarction; Z88.0 Allergy status to penicillin; E11.22 Type 2 diabetes mellitus with diabetic chronic kidney disease; M81.0 Age-related osteoporosis without current pathological fracture; M19.90 Unspecified osteoarthritis, unspecified site; E11.51 Type 2 diabetes mellitus with diabetic peripheral angiopathy without gangrene; Z86.718 Personal history of other venous thrombosis and embolism; Z79.01 Long term (current) use of anticoagulants; F41.9 Anxiety disorder, unspecified; Z83.3 Family history of diabetes mellitus; Z82.49 Family history of ischemic heart disease and other diseases of the circulatory system; D63.1 Anemia in chronic kidney disease; Z82.61 Family history of arthritis; R53.81 Other malaise; Z87.891 Personal history of nicotine dependence; I25.10 Atherosclerotic heart disease of native coronary artery without angina pectoris; E11.65 Type 2 diabetes mellitus with hyperglycemia; Z98.41 Cataract extraction status, right eye; Z98.42 Cataract extraction status, left eye; Z79.4 Long term (current) use of insulin; Z79.899 Other long term (current) drug therapy; F32.9 Major depressive disorder, single episode, unspecified; J01.30 Acute sphenoidal sinusitis, unspecified; Z96.641 Presence of right artificial hip joint; R53.1 Weakness; Z68.22 Body mass index [BMI] 22.0-22.9, adult; E83.39 Other disorders of phosphorus metabolism; E83.41 Hypermagnesemia; I65.21 Occlusion and stenosis of right carotid artery; E87.5 Hyperkalemia; I34.0 Nonrheumatic mitral (valve) insufficiency; K63.5 Polyp of colon; K64.4 Residual hemorrhoidal skin tags

== ENCOUNTER 2019-02-16 17:45 | Inpatient (IN) | payer MEDICAID ==
[~2019-02-16] VITALS: Ht 152.4 cm; Wt 54.9 kg
[2019-02-16 22:50] VITALS: BP 101/65; BP 107/65; BP 119/63
[2019-02-16 23:39] VITALS: BP 100/55; BP 119/63; BP 165/82; BP 166/83
[2019-02-16 23:47] LABS: CALCIUM 8.2 mg/dL (8.5-10.1); CREATININE 9.5 mg/dL (0.6-1.3)
[2019-02-16 23:52] LABS: POTASSIUM 7.3 mmol/L (3.5-5.1)
[2019-02-17] VITALS (12 sets, daily range): BP systolic 119–163; BP diastolic 63–84
--- NOTE | 2019-02-17 03:03 | NUR ---
PATIENT TO ICU BED 5 AT 2350 ON BED ACCOMPANIED BY RN. ROUGHLY 200ML OF SECOND UNIT OF BLOOD LEFT AND INFUSING ON ARRIVAL, 15 MIN VITALS DOCUMENTED UNDER BLOOD INFUSION INTERVENTION ON CHART AT 0014, AFTER PATIENT SETTLED IN BED AND HOOKED TO VITALS MACHINE. PATIENT 89 F ON ARRIVAL, JON HUGGER PLACED AND TEMP IMPROVING. PT ON 15L 02 PER NON REBREATHER MASK, SPO2 >90%. HR READS >160s ON MONITOR, INACCURATE BECAUSE EKG SHOWS HR IN 80s AND IS NSR. BP, RR WNL. PATIENT MOANING, COMPLAINING OF CHEST PAIN. FENTANYL ADMINISTERED PER ORDER. PATIENT SLEEPING AT THIS TIME. ALSO RECEIVED LASIX AFTER SECOND UNIT OF BLOOD WAS COMPLETED. TOOK PATIENT'S BELONGINGS HOME WITH HIM. H$H PENDING. WILL CONTINUE MONITORING.
[2019-02-17 03:17] LABS: HEMATOCRIT 25.9 % (37.0-47.0); MCH 29.3 pg (26.0-34.0); MCHC 34.3 g/dL (28.0-37.0); MPV 7.9 fl. (7.2-11.1); RBC 3.04 mil/uL (4.20-5.00); WBC 15.2 thou/uL (4.0-11.0)
[2019-02-17 03:28] LABS: HEMOGLOBIN 8.9 gm/dL (12.0-15.0); MCV 85.2 fL (80.0-100.0)
[2019-02-17 03:40] LABS: DIRECT BILIRUBIN 0.1 mg/dL (<0.1-0.3); TOTAL BILIRUBIN 1.2 mg/dL (<0.1-1.0)
[2019-02-17 05:26] LABS: CALCIUM 7.3 mg/dL (8.5-10.1); MAGNESIUM 2.8 mg/dL (1.8-2.4); TOTAL BILIRUBIN 1.1 mg/dL (<0.1-1.0); TOTAL PROTEIN 4.8 g/dL (6.4-8.2)
[2019-02-17 05:35] LABS: POTASSIUM 6.5 mmol/L (3.5-5.1); TROPONIN-I LEVEL 10.54 ng/mL (<0.06)
--- NOTE | 2019-02-17 07:13 | NUR ---
VITALS WNL, LABS TRENDING TOWARDS GOAL. PATIENT MOANS IN PAIN, ADDITIONAL PRN PAIN MEDS ORDERED. PERITONEAL DIALYSIS STARTED AT 0640 THIS AM PER PROVIDER'S ORDERS, RN REPORTS IT IS TO RUN FOR APPROXIMATELY 9 HOURS. ORDER FOR ECHO AND ADDITIONAL LABS RECEIVED THIS AM. PATIENT MORE ALERT AT THIS TIME. ORIENTED X4, FULLY AWARE OF SITUATION. ABLE TO USE CALL LIGHT. WILL CONTINUE TO MONITOR.
--- NOTE | 2019-02-17 08:31 | NUR ---
PT TRANSFERRED FROM REHAB TO [facility] EARLY ON IN THE SHIFT. PT HAD VERY LOW HGB AND BLOOD WAS STARTED, AFTER SHE HAD A CODE BLUE, BEFORE SHE WAS TRANSFERRED TO ICU BED 5. DESPITE EXPLAINING THAT GETTING BLOOD FOR A PT TAKES TIME, THE FAMILY WAS NOT HAPPY WITH THE DELAY. PD NURSE SPOKE TO MD MELTER SUPERVISOR OXYGEN FURNACE AND SHE DID NOT RECEIVE PERITONEAL DIALYSIS WHILE ON [facility]. SPOKE TO NEUROLOGY MD MELTER SUPERVISOR OXYGEN FURNACE REGARDING CARDIOLOGY'S DESIRE TO ANTICOAG HER; MD STRONGLY ADVISED AGAINST ANTICOAG WITH SUCH A LOW HGB, BUT STATED THAT, FROM A NEURO STAND POINT, ONCE HER HGB WAS IN THE NORMAL RANGE, ANTICOAG WAS OK. SPOKE TO GI MD MELTER SUPERVISOR OXYGEN FURNACE WELL CONCERNING ANTICOAG. GI MD STATED THAT ANTICOAG WAS NOT APPROVED IN THE FACE OF ACTIVE BLOODY STOOLS ([employer] CLAIMS ADJUSTER OBSERVED BLOODY STOOL DURING THE SHIFT) AND ORDERED SOME TESTS TO BE ENTERED TO HELP DETERMINE SOURCE OF BLEEDING. SPOKE TO CARDIOLOGY MD MELTER SUPERVISOR OXYGEN FURNACE; APPROVED OF BLOOD TRANSFUSION ORDERS, BUT DISCONTINUED NITRO GTT THAT HAD BEEN PREVIOUSLY ORDERED BUT NOT STARTED. ER DOCTOR APPROVED RAPID TRANSFUSION OF FIRST UNIT OF BLOOD; TOLERATED VERY WELL BY PATIENT.
--- NOTE | 2019-02-17 08:50 | NUR ---
PATIENT ALERT CO CHEST DISCOMFORT TAKING ICE CHIPS DENIES SOA.
--- NOTE | 2019-02-17 13:23 | 2DMMODE ---
[place] [address] 2 D/M-MODE ECHOCARDIOGRAM Name: AUBREE ECKERT Room: [address] ADM IN R.#: [id number] Admission: 02/16/19 Attend Phys: Jesus Llanes Discharge: Date of : 57 Date of Service: 02/17/19 1323 Report #: [id number] THIS REPORT FOR: //name// APPROVED REPORT Study performed: 02/17/2019 08:36:32 EXAM: Comprehensive 2D, Doppler, and color-flow Echocardiogram Patient Location: In-Patient Room #: [facility] BSA: 1.54 HR: 99 bpm BP: 163/84 mmHg Other Information Study Quality: Adequate Indications Elevated Troponin Chest Pain 2D Dimensions IVSd: 10.63 (7-11mm) LVOT Diam: 20.04 (18-24mm) LVDd: 45.68 mm PWd: 10.31 (7-11mm) Ascending Ao: 26.98 (22-36mm) LVDs: 32.91 (25-40mm) Aortic Root: 23.84 mm Volumes Left Atrial Volume (Systole) LA ESV Index: 36.10 mL/m2 Aortic Valve AoV Peak Cesar.: 1.87 m/s AO Peak Gr.: 13.99 mmHg LVOT Max P.71 mmHg AO Mean Gr.: 7.85 mmHg LVOT Mean P.31 mmHg LVOT Max V: 0.82 m/s AO V2 VTI: 36.06 cm LVOT Mean V: 0.52 m/s KINSEY (VTI): 1.38 cm2 LVOT V1 VTI: 15.84 cm Mitral Valve MV Peak Gr.: 16.27 mmHg MV Mean Gr.: 8.01 mmHg E/A Ratio: 0.88 MV Decel. Time: 128.46 [place] [address] 2 D/M-MODE ECHOCARDIOGRAM Name: AUBREE ECKERT Room: [address] IN .R.#: [id number] Admission: 02/16/19 Attend Phys: Jesus Llanes Discharge: Date of : 57 Date of Service: 02/17/19 1323 Report #: [id number] MV E Max Cesar.: 1.48 m/s MV PHT: 37.25 ms MVA (PHT): 5.91 cm2 TDI E/Lateral E': 10.57 E/Medial E': 12.33 Medial E' Cesar.: 0.12 m/s Lateral E' Cesar.: 0.14 m/s Pulmonary Valve PV Peak Cesar.: 0.97 m/s PV Peak Gr.: 3.73 mmHg Left Ventricle The left ventricle is normal size. There is normal LV segmental wall motion. Mild concentric left ventricular hypertrophy. Left ventricular systolic function is normal. LVEF is 55-60%. Grade III - reversible restrictive diastolic dysfunction. Right Ventricle The right ventricle is normal size. The right ventricular systolic function is normal. Atria Left atrium is mildly dilated. The right atrium size is normal. Aortic Valve Aortic valve is mildly calcified. Mild aortic regurgitation. Mild aortic stenosis. Mitral Valve Moderate mitral annular calcification. Mitral valve leaflets are calcified. Moderate mitral regurgitation. Moderate mitral stenosis. Tricuspid Valve The tricuspid valve is normal in structure. There is no tricuspid valve regurgitation noted. Pulmonic Valve The pulmonary valve is normal in structure. There is no pulmonic valvular regurgitation. Great Vessels The aortic root is normal in size. IVC is normal in size and collapses >50% [place] [address] 2 D/M-MODE ECHOCARDIOGRAM Name: AUBREE ECKERT Room: [address] IN [facility]#: [id number] Admission: 02/16/19 Attend Phys: Jesus Llanes Discharge: Date of : 57 Date of Service: 02/17/19 1323 Report #: [id number] Pericardium There is no pericardial effusion. <Conclusion> The left ventricle is normal size. Mild concentric left ventricular hypertrophy. Left ventricular systolic function is normal. LVEF is 55-60%. Grade III - reversible restrictive diastolic dysfunction. Aortic valve is mildly calcified. Mild aortic stenosis. Moderate mitral annular calcification. Mitral valve leaflets are calcified. Moderate mitral regurgitation. IVC is normal in size and collapses >50% with inspiration. <ELECTRONICALLY SIGNED> By: Zachary Awad MD, FACC 02/17/19 1323 1323 1323 Zachary Awad MD, FACC /INF
[2019-02-17 14:49] LABS: HEMOGLOBIN 8.3 gm/dL (12.0-15.0)
[2019-02-17 15:05] LABS: POTASSIUM 4.7 mmol/L (3.5-5.1)
[2019-02-17 15:10] LABS: TROPONIN-I LEVEL 15.53 ng/mL (<0.06)
--- NOTE | 2019-02-17 17:09 | EKG ---
[place] [address] ELECTROCARDIOGRAM REPORT Name: AUBREE ECKERT Room: [address] ADM IN M.R.#: [id number] Admission: 02/16/19 Attend Phys: Marta Witt Discharge: Date of : 57 Report #: [id number] THIS REPORT FOR: //name// [facility] Test Date: 2019-02-17 Test Time: 00:39:02 Pat Name: AUBREE ECKERT Department: Room: [address] Gender: F Rn Staff: : 1955 Requested By: Jesus Llanes Order Number: [id number] Clement MD: Zachary Awad Measurements Intervals [place] Rate: 81 P: 36 CO: 219 QRS: 65 QRSD: 161 T: 48 QT: 462 QTc: 537 Interpretive Statements Sinus rhythm Borderline prolonged CO interval Probable left atrial enlargement IVCD, consider atypical RBBB Repol abnrm suggests ischemia, diffuse leads Compared to ECG 02/16/2019 16:05:10 Left ventricular hypertrophy no longer present Prolonged QT interval no longer present Possible ischemia still present Electronically Signed On 02-17-2019 17:09:11 CDT by Zachary Awad [email or web address] <ELECTRONICALLY SIGNED> By: Zachary Awad MD, FACC 02/17/19 1709 Zachary Awad MD, FACC /EPI
--- NOTE | 2019-02-17 17:09 | EKG ---
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: : 1955 Requested By: Jesus Llanes Order Number: [id number] Reading MD: Zachary Awad Measurements Intervals [place] Rate: 81 P: 35 OR: 214 QRS: 63 QRSD: 170 T: 57 QT: 469 QTc: 545 Interpretive Statements Sinus rhythm Borderline prolonged OR interval Left atrial enlargement IVCD, consider atypical RBBB Repol abnrm suggests ischemia, diffuse leads Baseline wander in lead(s) V6 Compared to ECG 02/16/2019 16:05:10 Left ventricular hypertrophy no longer present Prolonged QT interval no longer present Possible ischemia still present Electronically Signed On 02-17-2019 17:09:06 CDT by Zachary Awad [email or web address] <ELECTRONICALLY SIGNED> By: Zachary Awad MD, FACC 02/17/19 1709 Zachary Awad MD, [facility] /EPI
--- NOTE | 2019-02-17 17:14 | EKG ---
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: : 1955 Requested By: Iris Verduzco Order Number: [id number] Reading MD: Zachary Awad Measurements Intervals [place] Rate: 77 P: 30 NC: 175 QRS: 15 QRSD: 91 T: 143 QT: 445 QTc: 504 Interpretive Statements Sinus rhythm Probable left atrial enlargement Repol abnrm, severe global ischemia (LM/MVD) Prolonged QT interval Compared to ECG 02/16/2019 16:05:10 Left ventricular hypertrophy no longer present Possible ischemia still present Electronically Signed On 02-17-2019 17:14:42 CDT by Zachary Awad [email or web address] <ELECTRONICALLY SIGNED> By: Zachary Awad MD, FACC 02/17/19 1714 1414 1414 Zachary Awad MD, [facility] /EPI
--- NOTE | 2019-02-17 19:27 | NUR ---
PATIENT REMAINS U NCOMFORTABLE DUE TO STERNAL PAIN. CTS DONE. VITAL SIGNS STABLE.
[2019-02-18] VITALS (22 sets, daily range): BP systolic 121–173; BP diastolic 59–83
[2019-02-18 03:00] LABS: HEMOGLOBIN 9.3 gm/dL (12.0-15.0); MCH 29.8 pg (26.0-34.0); MCHC 34.3 g/dL (28.0-37.0); MCV 86.9 fL (80.0-100.0); MPV 7.9 fl. (7.2-11.1); PLATELET COUNT* 188 thou/uL (150-400); RBC 3.11 mil/uL (4.20-5.00); RDW-CV 18.7 % (10.5-14.5); WBC 12.2 thou/uL (4.0-11.0)
[2019-02-18 06:04] LABS: ABSOLUTE BASOPHILS 0.1 thou/uL (0.0-0.2); ABSOLUTE LYMPHOCYTES 0.4 thou/uL (0.8-5.3); ABSOLUTE MONOCYTES 0.4 thou/uL (0.0-1.2); ABSOLUTE NEUTROPHILS 11.3 thou/uL (1.6-8.1)
[2019-02-18 06:05] LABS: ANISOCYTOSIS 1+; PLATELET ESTIMATE ADEQUATE; POIKILOCYTOSIS 1+; POLYCHROMASIA Occasional
--- NOTE | 2019-02-18 06:11 | NUR ---
VITALS STABLE, PATIENT SLEEPING THROUGH MOST OF THE NIGHT. BIPAP SINCE 2300 WITH SPO2>90%. ON 6L PER HIGH FLOW NC BEFORE THAT WITH SPO2 >90%. CALL LIGHT WITHIN REACH. WANTS TO BE IN BANKS'S POSITION AT ALL TIMES.
[2019-02-18 06:15] LABS: ALBUMIN 1.9 g/dL (3.4-5.0); CALCIUM 8.2 mg/dL (8.5-10.1); CREATININE 8.7 mg/dL (0.6-1.3); PHOSPHORUS* 7.9 mg/dL (2.5-4.9); POTASSIUM 4.1 mmol/L (3.5-5.1)
--- NOTE | 2019-02-18 06:25 | NUR ---
VITALS STABLE, PATIENT SLEEPING THROUGH MOST OF THE NIGHT. DOWN TO 2L PER NC WITH SPO2 >95%, AFEBRILE. NO ARRHYTHMIA DURING THIS SHIFT. PATIENT IN PAIN AND UNCOMFORTABLE, Q4 PRN MEDS GIVEN ORDERED. MAINTAINED BP WITH NO SUPPORT. UPGRADED TO MODERATE SLIDING SCALE PER PROTOCOL. HGB IMPROVING, THERE WAS NO NEED TO TRANSFUSE. PATIENT ON PD SINCE 644 LAST NIGHT, CMP ORDERED IN CASE NEPHROLOGY WANTS K+ LEVELS. UOP 150ML. ICE CHIPS FOR COMFORT. CALL LIGHT WITHIN REACH. PATIENT IN TOO MUCH PAIN TO BE TURNED ON HER SIDES.
--- NOTE | 2019-02-18 11:00 | NUR ---
PT KNOWN TO CASE MGT FROM PREVIOUS ADMISSIONS. PT TRANSFERRED FROM REHAB UNIT TO ICU ON 02/16. PT ON REHAB AFTER CVA, PT ON PERTONEAL DIALYSIS. REHAB UNIT HAD BEGUN TALKING TO PT AND ABOUT POSSIBLE ELECTROPLATER HELPER CARE AT A LONGTERM, WORKS TWO JOBS AND THERE WOULD BE NO ONE TO PROVIDE 24 HOUR CARE/SUPERVISION AT HOME. NO FAMILY HERE AT THIS TIME. CASE MGT WILL CONTINUE TO FOLLOW.
--- NOTE | 2019-02-18 11:57 | NUR ---
Nutrition: Pt assessed for low Ananda score 11. Admitted with chest pain. Hx CVA, CAD, CHF, uncontrolled DM. Last BM 02/16. Wt is within usual range - 118#. SSI. Labs: BUN 89, cr 8.7, GFR 5, elevated LFTS PO4 and Mag, BG 200s, alb 1.7. ARF, colitis. Severely depleted protein stores, currently NPO. Will follow POC and intervene as needed. Follow up 02/20/19.
[2019-02-18 14:16] LABS: HEMATOCRIT 25.2 % (37.0-47.0); HEMOGLOBIN 8.6 gm/dL (12.0-15.0); MCH 29.6 pg (26.0-34.0); MCHC 34.1 g/dL (28.0-37.0); MPV 7.4 fl. (7.2-11.1); RBC 2.9 mil/uL (4.20-5.00); RDW-CV 18.7 % (10.5-14.5); WBC 12.8 thou/uL (4.0-11.0)
--- NOTE | 2019-02-18 14:27 | CON ---
[address] [address] CONSULTATION Name: AUBREE ECKERT Room: [address] IN M.R.#: [id number] Admission: 02/16/19 Attend Phys: Marta Witt Discharge: Date of : 57 Report #: [id number] THIS REPORT FOR: //name// CC: Juan M Llanes REASON FOR CONSULTATION: Acute anemia. HISTORY OF PRESENT ILLNESS: A 63-year-old female who has been admitted because of a cardiac arrest. The patient had a CPR for 9 minutes. She had previously an EGD and colonoscopy, which was unrevealing. She was found to have hemoglobin of 4.7 and back on 02/11/2019 it was 6.9. The patient received 2 units of PRBC. Per nursing staff, the patient at some point had bright blood per rectum. However, at this point in the last 24 hours there has been no evidence of bleeding. The patient denies any nausea, vomiting, epigastric pain, or abdominal pain. The patient was told that she has been having anemia for a long time reviewing her prior history. Back in 10/2018, her hemoglobin was 6.7. She had EGD and colonoscopy, which showed some polyps, hemorrhoids and diverticulosis. The patient at this point was hemodynamically stable. She was awake, not on any pressors. REVIEW OF SYSTEMS: All systems reviewed. It was negative except as above. PAST MEDICAL HISTORY: Congestive heart failure, previous history of colitis, CVA, diabetes mellitus, hypertension, peripheral artery disease, renal failure. MEDICATIONS: Per admission. ALLERGIES: PENICILLIN. FAMILY HISTORY: Positive for coronary artery disease and diabetes. SOCIAL HISTORY: She is an ex-smoker. She smoked 3 packs; however, she quit less than one year. Alcohol prior use. PHYSICAL EXAMINATION: VITAL SIGNS: Today, temperature is 37.1, pulse is 83, blood pressure is 145/74, SpO2 was 100% on 3 liters. GENERAL: The patient was lying in bed. She was not in acute distress. LUNGS: Clear to auscultation bilaterally. Decreased breathing sounds bilaterally. ABDOMEN: Soft, nontender, nondistended, bowel sounds positive. EXTREMITIES: No edema, no cyanosis, no clubbing. LABORATORY DATA: Most recent labs today: WBC 15.1, hemoglobin 8.3, platelets 170. Potassium is 4.7. She had iron studies back in January, which showed ferritin of 385, TIBC low at 201, saturations 49%. Total bilirubin 1.1, AST was [facility] [address] [place] [address] CONSULTATION Name: AUBREE ECKERT Room: [address] IN [facility].#: [id number] Admission: 02/16/19 Attend Phys: Marta Witt Discharge: Date of : 57 Report #: [id number], ALT is 423, total LDH is 1077. Troponin is 15.3. IMAGING: Ultrasound showed normal appearance of the liver. She had perisplenic ascites, small bilateral renal cysts. Chest x-ray showed no acute cardiopulmonary identified. ASSESSMENT AND PLAN: A 63-year-old female who has been evaluated because of acute anemia. The patient required blood transfusion; for the last few months her hemoglobin has been low. Her iron studies way back in January were consistent with normal ferritin and low TIBC. I do suspect the patient had multifactorial causes of anemia. She had underlying renal disease. She is on dialysis. However, I believe the patient per the history might have an acute GI bleed. At this point, since she has a cardiac arrest, recommend supportive measures including to keep her hemoglobin above 8 with a transfusion. I would like to obtain peripheral blood smear. We will obtain repeated LDH, retic count and DIT with B12 and folate serum level. We will monitor the patient with serial hemoglobin. <ELECTRONICALLY SIGNED> By: Aime Mauro MD 02/18/19 1427 1728 [id number] Mauro MD /nt
[2019-02-19] VITALS (13 sets, daily range): BP systolic 98–162; BP diastolic 49–81
[2019-02-19 02:07] LABS: ABSOLUTE EOSINOPHILS 0.3 thou/uL (0.0-0.7); ABSOLUTE LYMPHOCYTES 0.7 thou/uL (0.8-5.3); ABSOLUTE NEUTROPHILS 9.5 thou/uL (1.6-8.1); BASOPHILS 0.3 %; EOSINOPHILS 2.4 %; HEMATOCRIT 25.3 % (37.0-47.0); HEMOGLOBIN 8.5 gm/dL (12.0-15.0); LYMPHOCYTES 6.2 %; MCH 29.5 pg (26.0-34.0); MCHC 33.6 g/dL (28.0-37.0); MCV 87.8 fL (80.0-100.0); MONOCYTES 8.7 %; MPV 7.9 fl. (7.2-11.1); NUCLEATED RBCS 0 /100WBC; PLATELET COUNT* 196 thou/uL (150-400); POLYS 82.4 %; RBC 2.88 mil/uL (4.20-5.00); WBC 11.5 thou/uL (4.0-11.0)
[2019-02-19 02:23] LABS: ALBUMIN 1.8 g/dL (3.4-5.0); CALCIUM 8.5 mg/dL (8.5-10.1); CREATININE 8.8 mg/dL (0.6-1.3); POTASSIUM 3.9 mmol/L (3.5-5.1); TOTAL BILIRUBIN 0.8 mg/dL (<0.1-1.0); TOTAL PROTEIN 5.4 g/dL (6.4-8.2)
[2019-02-19 02:25] LABS: TROPONIN-I LEVEL 4.06 ng/mL (<0.06)
--- NOTE | 2019-02-19 02:44 | NUR ---
ASSUMED CARE OF PATIENT AT 1900. VSS, AFEBRILE. PERITONEAL DIALYSIS INFUSING. PATIENT C/O PAIN, STATES NOTHING HELPS. REFUSES TO TURN OR MOVE. PAIN MEDS GIVEN ORDERED. DIALYSIS NURSE CALLED, STATED THAT SHE COULD NOT BE TRANSFERRED DURING THE NIGHT BECAUSE THE DIALYSIS COULD NOT BE STOPPED. CHARGE NURSE AND CHIROPRACTIC CARE NOTIFIED. CRIES OUT OCCASSIONALLY, REASSURANCE OFFERED. ICE CHIPS GIVEN SPARINGLY.
[2019-02-19 13:42] LABS: PREALBUMIN 28.5 mg/dL (18.0-35.7)
[2019-02-19 14:00] LABS: HEMATOCRIT 25.6 % (37.0-47.0); HEMOGLOBIN 8.6 gm/dL (12.0-15.0); MCH 29.6 pg (26.0-34.0); MCHC 33.6 g/dL (28.0-37.0); MCV 88.3 fL (80.0-100.0); MPV 7.6 fl. (7.2-11.1); NUCLEATED RBCS 0 /100WBC; PLATELET COUNT* 199 thou/uL (150-400); WBC 11.6 thou/uL (4.0-11.0)
[2019-02-19 14:17] LABS: ABSOLUTE EOSINOPHILS 0.2 thou/uL (0.0-0.7); ABSOLUTE LYMPHOCYTES 0.7 thou/uL (0.8-5.3); ABSOLUTE MONOCYTES 0.5 thou/uL (0.0-1.2); ABSOLUTE NEUTROPHILS 10.2 thou/uL (1.6-8.1); ATYPICAL LYMPHS 4 %; PLATELET ESTIMATE ADEQUATE
--- NOTE | 2019-02-19 19:40 | NUR ---
PATIENT CO ABDM PAIN GIVEN ZOFRAN AND FENTANYL. TAKING PO SLOWLY. PROGRESSING SLOWLY.
[2019-02-19 21:24] LABS: % SATURATION 20 % (20-39); IRON 37 ug/dL (50-175)
[2019-02-20 01:48] LABS: ABSOLUTE BASOPHILS 0.1 thou/uL (0.0-0.2); ABSOLUTE EOSINOPHILS 0.2 thou/uL (0.0-0.7); ABSOLUTE LYMPHOCYTES 0.9 thou/uL (0.8-5.3); ABSOLUTE MONOCYTES 1.2 thou/uL (0.0-1.2); ABSOLUTE NEUTROPHILS 7.9 thou/uL (1.6-8.1); BASOPHILS 0.8 %; EOSINOPHILS 2.4 %; HEMATOCRIT 24.6 % (37.0-47.0); HEMOGLOBIN 8.3 gm/dL (12.0-15.0); LYMPHOCYTES 8.3 %; MCH 29.8 pg (26.0-34.0); MCHC 33.8 g/dL (28.0-37.0); MONOCYTES 11.3 %; MPV 7.7 fl. (7.2-11.1); NUCLEATED RBCS 0 /100WBC; PLATELET COUNT* 186 thou/uL (150-400); POLYS 77.2 %; RDW-CV 19.1 % (10.5-14.5); WBC 10.2 thou/uL (4.0-11.0)
[2019-02-20 01:59] LABS: ALBUMIN 1.7 g/dL (3.4-5.0); CALCIUM 7.9 mg/dL (8.5-10.1); CREATININE 8.5 mg/dL (0.6-1.3); MAGNESIUM 2.6 mg/dL (1.8-2.4); PHOSPHORUS* 8.7 mg/dL (2.5-4.9); POTASSIUM 3.8 mmol/L (3.5-5.1); TOTAL BILIRUBIN 0.6 mg/dL (<0.1-1.0); TOTAL PROTEIN 5.4 g/dL (6.4-8.2)
[2019-02-20 02:13] LABS: TROPONIN-I LEVEL 2.09 ng/mL (<0.06)
[2019-02-20 05:24] VITALS: BP 121/62
--- NOTE | 2019-02-20 06:16 | NUR ---
PT. PROGRESSING TOWARDS GOALS. VITAL SIGNS WITHIN NORMAL LIMITS, BRADYCARDIC AT TIMES WHEN SLEEPING. C/O PAIN THROUGHOUT SHIFT IN CHEST/BACK/ABDOMEN. HYDROCODONE/FENTANYL GIVEN PER PRN ORDERS. NO C/O NAUSEA/VOMITTING. URINE OUTPUT 30CC. PERITONEAL DIALYSIS COMPLETED. IV REMAINS SALINE LOCKED. 2L O2. CALL LIGHT REMAINS IN REACH, WILL CONTINUE TO MONITOR.
[2019-02-20 07:41] VITALS: BP 132/63
[2019-02-20 12:00] VITALS: BP 100/53
--- NOTE | 2019-02-20 13:05 | NUR ---
02/20: UP WITH PT, WALKED A SHORT DISTANCE. PATIENT TRANSFERRED TO ROOM 309 AROUND 1230
[2019-02-20 14:36] LABS: HEMATOCRIT 23.8 % (37.0-47.0); HEMOGLOBIN 8.2 gm/dL (12.0-15.0); MCH 30.6 pg (26.0-34.0); MCHC 34.5 g/dL (28.0-37.0); MCV 88.6 fL (80.0-100.0); MPV 7.8 fl. (7.2-11.1); NUCLEATED RBCS 0 /100WBC; PLATELET COUNT* 190 thou/uL (150-400); RBC 2.68 mil/uL (4.20-5.00); RDW-CV 18.4 % (10.5-14.5); WBC 10.3 thou/uL (4.0-11.0)
[2019-02-20 15:00] LABS: ABSOLUTE EOSINOPHILS 0.2 thou/uL (0.0-0.7); ABSOLUTE LYMPHOCYTES 0.8 thou/uL (0.8-5.3); ABSOLUTE MONOCYTES 0.6 thou/uL (0.0-1.2); ABSOLUTE NEUTROPHILS 8.7 thou/uL (1.6-8.1); PLATELET ESTIMATE ADEQUATE; POLYCHROMASIA 1+
[2019-02-20 15:30] VITALS: BP 138/54
--- NOTE | 2019-02-20 15:44 | NUR ---
PT TRANSFERRED TO 309 AT 1230. PT ALERT AND ORIENTED X4. DENIES NEED FOR PAIN MEDICATION AT THIS TIME, PRN PAIN MEDICATIONS GIVEN BEFORE TRANSFER. PT IS SLEEPING WITH NO OTHER CONCERNS. TELE MONITOR IN PLACE HEART RATE IN 50'S. BEST IN PLACE. Q2 TURN. CALL LIGHT WITHIN REACH, WILL CONTINUE PLAN OF CARE
[2019-02-21] VITALS: BP 109/40
[2019-02-21 04:24] LABS: HEMATOCRIT 25.3 % (37.0-47.0); HEMOGLOBIN 8.6 gm/dL (12.0-15.0); MCH 30.4 pg (26.0-34.0); MCHC 33.8 g/dL (28.0-37.0); MPV 8.4 fl. (7.2-11.1); RBC 2.81 mil/uL (4.20-5.00); RDW-CV 19.1 % (10.5-14.5); WBC 8.7 thou/uL (4.0-11.0)
[2019-02-21 04:45] LABS: ALBUMIN 1.9 g/dL (3.4-5.0); CALCIUM 8.5 mg/dL (8.5-10.1); CREATININE 9.1 mg/dL (0.6-1.3); MAGNESIUM 2.7 mg/dL (1.8-2.4); PHOSPHORUS* 9.8 mg/dL (2.5-4.9); POTASSIUM 4.6 mmol/L (3.5-5.1); TOTAL BILIRUBIN 0.6 mg/dL (<0.1-1.0); TOTAL PROTEIN 5.9 g/dL (6.4-8.2)
--- NOTE | 2019-02-21 06:39 | NUR ---
PATIENT SLEPT OFF AND ON DURING THIS SHIFT. PT WOULD MOAN IN PAIN C/O BACK PAIN. HYDROCODONE, FENTANYL AND ULTRAM GIVEN FOR PAIN. PT WITH SALINE LOCK IN RT WRIST; PATENT. PT ON PERITONEAL DIALYSIS WHICH STARTED AT HS AND COMPLETED THIS AM. 1142ML OF FLUIDS TAKEN OFF WITH DIALYSIS. PT TOLERATED WELL. PT ON O2 @ 2 LITERS PER NC. PT WITH 2100 BLOOD SUGAR AT 234; LISPRO 10 UNITS GIVEN. PT ENCOURAGED TO TURN AND ASSISTANCE OFFERED BUT REFUSED. PT SAID SHE WAS ABLE TO MOVE HERSELF. PT ABLE TO SHIFT SLIGHTLY TO HER SIDE BY PULLING ON SIDERAILS BUT NOT A COMPLETE TURN. FREQUENTLY USED ITEMS AND CALL LIGHT WITHIN REACH. SIDERAILS UPX4 AND BED ALARM ON. WILL CONTINUE TO MONITOR.
[2019-02-21 08:00] VITALS: BP 135/68
[2019-02-21 15:43] VITALS: BP 141/73
--- NOTE | 2019-02-21 16:49 | NUR ---
PATIENT GIVEN PRN HYDROCONE/ZANAFLEX AND SCHED TRAMADOL FOR RIB PAIN. PATIENT REFUSING TO GET INTO CHAIR OR BATH, PATIENT GIVEN EDUCATION ON TURNING IN BED EVERY 2 HOURS AND FINALLY COMPLIANT THIS EVENING. 02 2L NC REMAINS IN PLACE. EBST REMAINS IN PLACE, DRAINING YELLOW URINE. CXR PENDING. ELEVATED BLOOD SUGARS THIS SHIFT, DR. JETT NOTIFIED AND ORDERS FOR LANTUS RECEIVED.
[2019-02-21 20:40] VITALS: BP 112/85
[2019-02-22] VITALS (12 sets, daily range): BP systolic 72–130; BP diastolic 34–56
[2019-02-22 04:10] LABS: ABSOLUTE EOSINOPHILS 0.3 thou/uL (0.0-0.7); ABSOLUTE LYMPHOCYTES 0.3 thou/uL (0.8-5.3); ABSOLUTE MONOCYTES 0.9 thou/uL (0.0-1.2); ABSOLUTE NEUTROPHILS 6.5 thou/uL (1.6-8.1); BASOPHILS 0.2 %; EOSINOPHILS 3.3 %; HEMATOCRIT 26.3 % (37.0-47.0); HEMOGLOBIN 8.9 gm/dL (12.0-15.0); LYMPHOCYTES 3.7 %; MCH 30.3 pg (26.0-34.0); MCHC 33.8 g/dL (28.0-37.0); MCV 89.7 fL (80.0-100.0); MONOCYTES 10.8 %; MPV 8.6 fl. (7.2-11.1); NUCLEATED RBCS 0 /100WBC; PLATELET COUNT* 176 thou/uL (150-400); RBC 2.94 mil/uL (4.20-5.00); RDW-CV 19.8 % (10.5-14.5); WBC 7.9 thou/uL (4.0-11.0)
[2019-02-22 04:28] LABS: CALCIUM 8.2 mg/dL (8.5-10.1); CREATININE 9.2 mg/dL (0.6-1.3); POTASSIUM 3.9 mmol/L (3.5-5.1)
--- NOTE | 2019-02-22 06:45 | NUR ---
PT SLEPT ON AND OFF THIS SHIFT. ASSESSMENT DOCUMENTED. MEDS GIVEN PER E-MAR. PAIN MEDS GIVEN PER E-MAR WITH MINIMAL RELIEF PER PATIENT. PERIONEAL DIALYSIS STARTED BY DIALYSIS PERSONEL, STATING THAT STARTING WT WAS 57.8KG. PT REFUSED REPOSTIONS STATING IT HURT TOO MUCH. TELE MONITOR IN PLACE READING SR-SB. WILL CONTINUE WITH PLAN OF CARE.
--- NOTE | 2019-02-22 17:30 | NUR ---
PATIENT UP TO CHAIR ALL MORNING INTO AFTERNOON. 02 2L NC REMAINS IN PLACE, NO SOA NOTED AND SATS MAINTAINED AT 94-95%. PRN HYDROCONE AND ZANAFLEX GIVEN THIS AM FOR RIB TENDERNESS. CXR RESULTED AND NO RIB FRACTURES NOTED, DR. JETT AWARE. PATIENT HR NOTED TO BE 48-49 LATE THIS AFTERNOON, DR. JETT NOTIFIED AND JUST MONITOR PATIENT. PATIENT GIVEN LACTULOSE TO PROMOTE BM PER NEPHROLOGY. PATIENT BP CHECKED WHILE HR NAFISA, DEFER TO CHARTING. DR. JETT WAS NOTIFIED AND ORDERS FOR ALBUMIN. IV ALBUMBIN GIVEN AND CARDIOLOGY ALSO NOTIFIED PER ORDERS. BP MEDS DECREASED PER DR. WRIHGT. DIALYSIS NURSE NOTIFIED OF PATIENTS CHANGE IN STATUS, SAROJ CONTINUE WITH PERITONEAL DIALYSIS TONIGHT SCHEDULED. BP NOW 90/42. PATIENT IS ALERT AND FOLLOWING COMMANDS.
[2019-02-23 00:55] VITALS: BP 110/56
[2019-02-23 04:34] VITALS: BP 145/57
[2019-02-23 05:23] LABS: ALBUMIN 2.5 g/dL (3.4-5.0); CALCIUM 8.4 mg/dL (8.5-10.1); CREATININE 9.4 mg/dL (0.6-1.3); PHOSPHORUS* 7.7 mg/dL (2.5-4.9); POTASSIUM 3.7 mmol/L (3.5-5.1)
--- NOTE | 2019-02-23 05:25 | NUR ---
PT SLEPT ON AND OFF THIS SHIFT. ASSESSMENT DOCUMENTED. MEDS GIVEN PER E-MAR. IV PATENT. PAIN MEDS GIVEN PER PATIENT REQUEST. PT HOOKED UP TO PERITONEAL DIALYSIS BY NEWS VIDEOGRAPHER. PT WITNESSED CLAMPING TUBING THIS SHIFT, PT EDUCATED NOT TO CLAMP THE TUBES, PT STATED SHE DID NOT DO IT AND BECAME UPSET. CLAMPS UNCLAMPED AND DIALYIS RESUMED. PT REFUSED REPOSITIONS THIS SHIFT. WILL CONTINUE WITH PLAN OF CARE.
[2019-02-23 07:10] VITALS: BP 146/70
[2019-02-23 11:58] VITALS: BP 144/71
[2019-02-23 16:22] VITALS: BP 143/63
--- NOTE | 2019-02-23 16:33 | NUR ---
SW met with pt and pt as they wanted to complete a medical DPOA, SW discussed with pt and pt understanding and signed, SW signed, witnesses signed, SW notarized and provided original and copy to pt/ and copy placed in pt chart. SW discussed possible LTC needed and could try to find placement that would provide some therapy options; pt plans to speak with social security and try to expedite a Medicare insurance option. SW to continue to follow to assist with safe dc planning.
--- NOTE | 2019-02-23 16:52 | NUR ---
ASSESSMENT COMPLETE. PRN PAIN MEDICATION GIVEN NEEDED. PT REPORTS CONSTANT PAIN AND NO RELIEF WITH PAIN MEDICATION. PT EDUCATED ON NEED TO LOWER NARCOTICS. LIDOCAINE PATCH IN PLACE. PT UP IN CHAIR WITH PHYSICAL THERAPY. PT ACCUCHECK. TOLERATING 75% OF MEALS, DENIES N/V. PT IS CONSTIPATED, BID SENNA STARTED AND DULCOLAX SUPP GIVEN ONCE. SR ON TELE MONITOR. BEST IN PLACE. 2L PER NC WITH [place] SATS. PT IS UP 2 ASSIST. SEE ASSESSMENT AND VITALS FOR OTHER DETAILS. CALL LIGHT WITHIN REACH, WILL CONTINUE PLAN OF CARE
--- NOTE | 2019-02-23 18:48 | NUR ---
PT REPORTS INCREASE IN PAIN, PRN MEDICATIONS GIVEN. PT REFUSED DINNER, NO INSULIN GIVEN. PT EDUCATED ON IMPORTANCE OF EATING. DIALYSIS NURSE HERE TO SET UP PD. PT HAS NO OTHER CONCERNS AT THIS TIME.
[2019-02-23 20:27] VITALS: BP 140/63
[2019-02-24] VITALS (8 sets, daily range): BP systolic 105–179; BP diastolic 62–84
[2019-02-24 07:41] LABS: MCH 30.2 pg (26.0-34.0); MCHC 33.4 g/dL (28.0-37.0); MCV 90.5 fL (80.0-100.0); MPV 8.5 fl. (7.2-11.1); RBC 2.65 mil/uL (4.20-5.00); RDW-CV 20.8 % (10.5-14.5); WBC 7.8 thou/uL (4.0-11.0)
[2019-02-24 07:56] LABS: ALBUMIN 2.2 g/dL (3.4-5.0); CREATININE 8.7 mg/dL (0.6-1.3); POTASSIUM 3.6 mmol/L (3.5-5.1); TOTAL BILIRUBIN 0.6 mg/dL (<0.1-1.0); TOTAL PROTEIN 5.4 g/dL (6.4-8.2)
--- NOTE | 2019-02-24 15:51 | NUR ---
VICKI followed up with pt and pt about safe dc planning and recommendation for LTC at [facility]...pt does not want pt to live in [facility] but he was willing for pt to transition to LTC for now and then he hopes to be able to have Medicare for pt and then pt would want for pt to receive rehab at SNF. [facility] preference for [facility]. VICKI faxed referral to [facility] and will continue to follow to assist with safe dc planning. [facility] [phone] fax [phone]
--- NOTE | 2019-02-24 16:51 | NUR ---
ASSESSMENT COMPLETE. PT ALERT AND ORIENTED. PT CRYING OUT IN PAIN MOST OF THE DAY, PRN PAIN MEDICATION GIVEN ORDERED. PT REPORTING "POPPING" SOUND IN RIGHT CHEST. NURSE AND PROVIDER COULD FEEL CREPITUS ON RIGHT SIDE OF CHEST. RIGHT CHEST/RIB XRAY DONE WELL RIGHT CHEST SOFT TISSUE ULTRASOUND BOTH CAME BACK NEGATIVE. PT TOLERATING 50% OF MEALS. LACTULOSE GIVEN FOR CONSTIPATION. PERITONEAL DIALYSIS STARTED AROUND 1600. PT REFUSED PT/OT TODAY. PT Q2 TURN. PT IS ON 2L PER NC, VSS. EKG DONE-NSR. PT IS SITTING UP AT THIS TIME. SEE ASSESSMENT AND VITALS FOR OTHER DETAILS. CALL LIGHT WITHIN REACH, WILL CONTINUE PLAN OF CARE
--- NOTE | 2019-02-24 17:10 | EKG ---
[place] [address] ELECTROCARDIOGRAM REPORT Name: AUBREE ECKERT Room: [address] ADM IN M.R.#: [id number] Admission: 02/16/19 Attend Phys: Marta Witt Discharge: Date of : 57 Report #: [id number] THIS REPORT FOR: //name// 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 : 1955 Requested By: William Deleon Order Number: [id number] MD: Zachary Awad Measurements Intervals [place] Rate: 71 P: 25 WI: 176 QRS: 9 QRSD: 102 T: 109 QT: 417 QTc: 454 Interpretive Statements Sinus rhythm LVH with secondary repolarization abnormality Compared to ECG 02/17/2019 14:14:07 Left ventricular hypertrophy now present Possible ischemia no longer present Prolonged QT interval no longer present Electronically Signed On 02-24-2019 17:10:29 CDT by Zachary Awad [email or web address] <ELECTRONICALLY SIGNED> By: Zachary Awad MD, FACC 02/24/19 1710 1147 1147 Zachary Awad MD, FAC /EPI
[2019-02-25 04:07] VITALS: BP 107/63
--- NOTE | 2019-02-25 04:16 | NUR ---
ASSESSMENT: PT REMAIN ALERT AND ORIENT TIMES THREE, FORGETFUL TO SITUATION AND CONFUSED TO TIMES. PT MOANS AND GROANS ABOUT "CP" AND ABD PAIN. LAST DOSE OF FENTANYL WAS GIVEN AND HYDROCODONE WAS GIVEN LATER. PT STATE THAT THE HYDROCODONE IS WORKING OK FOR NOW. VSS, AFEBRILE. POSITIVE OCCULT STOOL. PT HAD TWO LARGE BM'S AND LOTS OF FLATUS THIS SHIFT AT APPROXIMATELY 0100. REMAINS FUSSY ABOUT HER SITUATION. STATE THAT HER CHEST FEELS LIKE A "POPPING" NOISE IS GOING ON MOSTLY ON THE LEFT UPPER CHEST AREA. BLOOD PRESSURE WAS ELEVATED AT THE BEGINNING OF THE SHIFT BUT DID DECREASE WITH HR AT 69. SR PER MONITOR. NO ISSUES NOTED WITH THE PD DURING THIS SHIFT. SLOW PROGRESS, WILL CONTINUE TO MONITOR.
[2019-02-25 05:39] LABS: CALCIUM 8.6 mg/dL (8.5-10.1); CREATININE 8.8 mg/dL (0.6-1.3); PHOSPHORUS* 6.6 mg/dL (2.5-4.9); POTASSIUM 3.5 mmol/L (3.5-5.1)
[2019-02-25 08:30] VITALS: BP 167/70
[2019-02-25 11:50] VITALS: BP 149/70
[2019-02-25 15:03] VITALS: BP 142/64
--- NOTE | 2019-02-25 17:04 | NUR ---
VICKI received call from Sharonda at [facility] admissions stating that they would consider accepting pt to LTC but Sharonda has to ask about whether or not facility would be able to do PD. Also Sharonda said that the pt/family would both need to be agreeable to LTC but pt is not on board yet with agreeing to pt living in alf indefinitely. SW to continue to follow to assist with finalizing safe dc plan.
--- NOTE | 2019-02-25 18:46 | NUR ---
I ASSUMED CARE OF THE PATIENT AT 0700. SHE IS ALERT AND ORIENTED X4 AND IS UP SBA. HOURLY ROUNDING WAS COMPLETED AND PATIENT NEEDS WERE MET. PAIN IS MANAGED WITH PRN MEDICATION. BED IS IN THE LOW LOCKED POSITION AND CALL LIGHT IS IN REACH. BED ALARM IS BEING USED. ESTEPHANIA D/C'D. SHE REFUSED A BATH. SHE HAS HAD 2 BM'S TODAY. THERE IS AN ORDER TO REMOVE LIV, BUT THE PATIENT DOESN'T HAVE LIV. WILL CONTINUE TO MONITOR.
--- NOTE | 2019-02-25 19:46 | NUR ---
I ASSUMED CARE OF THE PATIENT AT 0700. SHE IS ALERT AND ORIENTED X4 AND IS UP AD MILO. BED ALARM IS ON. BED IS IN LOW LOCKED POSITION AND CALL LIGHT IS IN REACH. HOURLY ROUNDING WAS COMPLETED AND PATIENT NEEDS ARE MET. PAIN IS ONLY PARTIALLY MANAGED WITH PRN MEDS. PATIENT ADMITS THAT SHE IS ABLE TO TAKE WAY MORE MEDS WHEN SHE IS AT HOME. WE ESTABLISHED A SCHEDULE AND I WROTE IT ON HER BOARD. SHE SHOULD D/C TOMORROW. WILL CONTINUE TO MONITOR.
[2019-02-25 23:59] VITALS: BP 111/66
[2019-02-26 03:45] VITALS: BP 119/65
[2019-02-26 03:51] LABS: HEMATOCRIT 26.4 % (37.0-47.0); HEMOGLOBIN 8.7 gm/dL (12.0-15.0); MCH 29.7 pg (26.0-34.0); MCHC 32.8 g/dL (28.0-37.0); MCV 90.6 fL (80.0-100.0); MPV 8.1 fl. (7.2-11.1); RBC 2.92 mil/uL (4.20-5.00); RDW-CV 21.7 % (10.5-14.5); WBC 7.2 thou/uL (4.0-11.0)
[2019-02-26 04:05] LABS: CALCIUM 8.6 mg/dL (8.5-10.1); POTASSIUM 4.1 mmol/L (3.5-5.1)
--- NOTE | 2019-02-26 05:53 | NUR ---
PATIENT SLEPT MOST OF THE NIGHT. PATIENT WAS GIVEN PAIN MEDICINE ONCE THIS SHIFT. PERITONEAL DIAYLSIS HAS BEEN GOING OVER NIGHT. PATIENT IS POSSIBLY DISCHARGING TO A FACILITY TODAY. WILL CONTINUE TO MONITOR.
[2019-02-26 08:20] VITALS: BP 130/63
[2019-02-26 16:46] VITALS: BP 140/63
--- NOTE | 2019-02-26 16:48 | NUR ---
VICKI followed up with Sharonda at [facility] about referral and status of whether or not [facility] would accept and be able to meet the need for PD. Sharonda said that [facility] would be unable to provide PD. VICKI tried [facility], [facility] and [facility] facilities, and all did not accept pts on PD. VICKI left message for [facility] and asked digital media planner to assist with contacting a few other facilities. May need to discuss with nephrology if it would be possible to change pt from PD to HD? VICKI briefly spoke with pt about placement, is now agreeable to pt living in LTC facility as he feels now that this would be necessary for her care, but he said he still was not agreeable to discuss hospice. SW to continue to follow to assist with finalizing safe dc plan/LTC placement.
--- NOTE | 2019-02-26 17:36 | NUR ---
PATIENT IS ALERT AND ORIENTED TODAY PLEASANT BUT FLAT AFFECT. COMPLAINS OF RIB AND CHEST PAIN AT AT ALL TIMES FROM CHEST COMPRESSIONS. VITAL SIGNS STABLE ON 2 LITERS OF OXYGEN. HAS BEEN IN CHAIR MOST OF THE DAY TOLERATING WELL. CALL LIGHT IS IN REACH WILL CONTINUE TO MONITOR.
[2019-02-26 21:30] VITALS: BP 157/76
[2019-02-27 00:14] VITALS: BP 134/81
[2019-02-27 03:24] VITALS: BP 132/57
[2019-02-27 03:57] LABS: HEMOGLOBIN 9.3 gm/dL (12.0-15.0); MCH 30.4 pg (26.0-34.0); MCHC 33.4 g/dL (28.0-37.0); MCV 91.1 fL (80.0-100.0); MPV 8.2 fl. (7.2-11.1); RBC 3.07 mil/uL (4.20-5.00); RDW-CV 22.1 % (10.5-14.5); WBC 8.8 thou/uL (4.0-11.0)
[2019-02-27 04:01] LABS: CALCIUM 8.2 mg/dL (8.5-10.1); CREATININE 9.7 mg/dL (0.6-1.3); POTASSIUM 3.9 mmol/L (3.5-5.1)
--- NOTE | 2019-02-27 05:57 | NUR ---
PATIENT SLEPT PART OF THE NIGHT. PERITONEAL DIALYSIS HAS RAN OVERNIGHT. PATIENT WAS GIVEN PAIN MEDICINE TWICE WITH SOME RELIEF. PATIENT WAS PLACED BACK ON OXYGEN AT 2L FOR SOME SHORTNESS OF AIR ABOUT 0100 SATS WERE 90-93% ON RA BUT PATIENT FELT LIKE SHE NEEDED TO WEAR THE OXYGEN. WILL CONTINUE TO MONITOR.
[2019-02-27 07:49] VITALS: BP 157/75
--- NOTE | 2019-02-27 09:47 | NUR ---
LEATHER PATCHER ATTEMPTED TO ASSIST IN FINDING LTC PLACEMENT FOR THE PATIENT. D/C PACKAGING MECHANIC SPOKE TO ANGEL LUIS WITH [facility] TO INFORM OF THE LTC REFERRAL, AND FAXED THE PATIENT'S FACESHEET, CLINICAL INFO, AND PT/OT NOTES. ANGEL LUIS RETURNED CALL TO INFORM THAT THE FACILITY HAS DECLINED PATIENT THEY ARE NOT ABLE TO MEET THE PATIENT'S NEEDS. NIESHA JAMA WITH THE REACH FACILITIES ALSO RETURNED CALL AND INFORMS THAT NONE OF THE REACH FACILITIES ARE ABLE TO ASSIST THEY DO NOT DO PERITONEAL DIALAYSIS. CM WILL REMAIN AVIALABLE TO ASSIST AND FOLLOW NEEDED.
[2019-02-27 12:02] VITALS: BP 112/55
--- NOTE | 2019-02-27 12:22 | NUR ---
SW discovered that [facility] [place] ([phone]) manages pt PD and pt PD began in April of 2018 ( [facility], Dr Villegas). SW called and spoke with nurse who manages PD at [facility] (x [phone] and cell [phone]) who provided options of facilities that [facility] contracts with to train nurses at facility to provide PD: [facility] in [place], [place] [phone]; SW called and spoke with admissions who confirmed that they would be able to manage PD but that they were not accepting any LTC pts at this time. and [facility] [phone]; SW called and spoke with admissions who said that they only manage PD for SNF pts not for LTC residents. SW to discuss situation with tourist agent edna to determine if pt would be a candidate to change from PD to HD as there are LTC facilities who could more than likely accept pt and then would just need to arrange for transportation or if pt could recieve enough in home services to be able to dc home with assist and if pt would be available to assist with PD. SW to continue to follow.
--- NOTE | 2019-02-27 15:30 | NUR ---
ASSESSMENT COMPLETE. PT ALERT AND ORIENTED X4. PRN PAIN MEDICATION GIVEN TWICE NEEDED. PT UP IN CHAIR FOR MOST OF DAY. DENIES N/V. EATING 75% OF MEALS. PT IS ON 2L PER NC, VSS. PT IS UP 2 ASSIST WITH GAIT BELT. PT HAS NO OTHER CONCERNS AT THIS TIME. SEE ASSESSMENT AND VITALS FOR OTHER DETAILS. CALL LIGHT WITHIN REACH, WILL CONTINUE PLAN OF CARE
[2019-02-27 16:00] VITALS: BP 139/58
[2019-02-27 20:10] VITALS: BP 147/78
[2019-02-28 00:15] VITALS: BP 110/50
[2019-02-28 04:00] VITALS: BP 142/59
--- NOTE | 2019-02-28 04:45 | NUR ---
PT CARE ASSUMED AT 1930. SAT MAINTAINED IN RA. CALL LIGHT WITHIN REACH AND BED IN LOW POSITION. ALERT AND ORIENTED X4. PT C/O PAIN, MEDICATION GIVEN PER EMAR. HOURLY ROUNDING DONE FOR PT SAFETY.
[2019-02-28 08:00] VITALS: BP 134/59
[2019-02-28 11:32] VITALS: BP 101/47
[2019-02-28 16:28] VITALS: BP 120/55
--- NOTE | 2019-02-28 17:09 | NUR ---
PT REMAINED A&Ox4 THROUGHOUT SHIFT. VITALS STABLE. INSULIN GIVEN PER SLIDING SCALE. UP WITH 1 TO CHAIR FOR MEALS. PAIN CONTROLLED WITH NORCO. DENIED [place] PATCH ON 2LO2. Z7MQMSO DONE. CALL LIGHT WITHIN REACH. FALL PRECAUTIONSIN PLACE. WILL CONTINUE TO MONITOR.
[2019-03-01] VITALS: BP 105/58
[2019-03-01 04:08] VITALS: BP 109/58
--- NOTE | 2019-03-01 04:53 | NUR ---
PT REMAINED A&O X 4. VITALS, SpO2 STABLE. PT STATED PAIN MED NOT EFFECTIVE. DR ALCANTARA ROUNDED IN THE EVENING AND UPDATED ON PAIN MANAGEMENT. MEDS GIVEN ORDERED. HOURLY ROUNDING AND Q2TURN COMPLETED. PLASMA PROCESSING TECHNICIAN IN PLACE. WILL CONTINUE TO MONITOR.
[2019-03-01 08:00] VITALS: BP 146/66
--- NOTE | 2019-03-01 16:10 | NUR ---
PATIENT RESTING IN BED. PATIENT HAS COMPLAINTS OF CHEST PAIN WITH MOVEMENT, TREATED PARTIALLY WITH MEDICATIONS. PATIENT HAS REFUSED TO BE UP TO CHAIR TODAY. PATIENT REPOSITIONED WHILE IN BED. PATIENT HAS FAIR APPETITE. PATIENT DENIES ANY NEEDS AT THIS TIME. CALL LIGHT WITHN REACH. WILL CONTINUE TO MONITOR.
[2019-03-01 16:41] VITALS: BP 129/61
[2019-03-01 20:00] VITALS: BP 93/43
[2019-03-02] VITALS: BP 107/49
--- NOTE | 2019-03-02 02:59 | NUR ---
ASSUMED CARE OF PATIENT AT 1900. VSS, AFEBRILE. C/O PAIN BEING 10/10, STATES NOTHING HELPS AND IT IS NEVER ANY BETTER. DOES ALLOW US TO REPOSITION HER AT TIMES. EDUCATED ON PAIN MANAGEMENT, VERBALZIES UNDERSTANDING, HOWEVER STATES IT NEVER GETS ANY BETTER. SLEEPING AT THIS TIME WITH PD RUNNING THROUGH THE NIGHT. TOLERATING WELL. WILL CONTINUE TO MONITOR.
[2019-03-02 04:00] VITALS: BP 88/39
[2019-03-02 10:00] VITALS: BP 116/51
[2019-03-02 12:00] VITALS: BP 121/49
[2019-03-02 16:50] VITALS: BP 122/96
--- NOTE | 2019-03-02 18:28 | NUR ---
PATIENT IS ALERT AND ORIENTED, COMPLAINTS OF PAIN THAT IS UNCONTROLLED WITH ANY MEDICATIONS OR ANY KIND OF THERAPUTIC EFFORTS. PATIENT DID SIT IN THE CHAIR FOR ABOUT 1 HOUR TODAY AND THEN WENT BACK TO BED. VITAL SIGNS ARE STABLE ON ROOM AIR. PATIENT IS GOING TO HAVE A PROCEDURE IN IR TOMORROW FOR DIALYSIS, SO PATIENT WILL BE NPO AFTER MIDNIGHT. CALL LIGHT IS IN REACH, WILL CONTINUE TO MONITOR,
[2019-03-02 20:20] VITALS: BP 136/66
[2019-03-03] VITALS (7 sets, daily range): BP systolic 120–177; BP diastolic 57–75
[2019-03-03 04:28] LABS: HEMATOCRIT 28.4 % (37.0-47.0); HEMOGLOBIN 9.2 gm/dL (12.0-15.0)
[2019-03-03 04:45] LABS: ALBUMIN 1.7 g/dL (3.4-5.0); CALCIUM 8.7 mg/dL (8.5-10.1); PHOSPHORUS* 6.3 mg/dL (2.5-4.9); POTASSIUM 4.5 mmol/L (3.5-5.1)
[2019-03-03 05:00] LABS: CREATININE 11.5 mg/dL (0.6-1.3)
--- NOTE | 2019-03-03 05:17 | NUR ---
PT IN BED THROUGH SHIFT, ALERT AND ORIENTED. INSULIN WITHHELD FOR BG 83 AT NIGHT. NO PAIN COMPLAINTS DURING SHIFT. PT STANDBY ASSIST. VS STABLE DURING SHIFT. NPO ORDERS ACTIVE. BED IN LOW POSITION, CALL LIGHT WITHIN REACH. WILL CONTINUE TO MONITOR.
--- NOTE | 2019-03-03 15:40 | NUR ---
VICKI faxed updated information to Sharonda in admissions at [facility] and spoke with Sharonda about referral. Sharonda said that [facility] would be able to accept pt LTC now that pt is on HD once they also confirm transportation arrangements for HD. [facility] should be able to provide rides once Medicaid community is switched to Medicaid facility. VICKI called and spoke with Martina from [facility] to discuss referral that will be sent to [facility] admissions once HsBg panel results return. Martina spoke with Odalys from clinic who said that there is one MWF 3rd shift chair time open starts bw 3 and 4 pm and ends bw 7 and 8 pm. VICKI called and provided information to Sharonda who said she would present to her director to make certain that they will still be able to accept pt. VICKI called and spoke with pt to inform of above information and dc planning for as soon as the finalization of acceptance to [facility] and [facility] occur. Pt was in agreement with plan and requests to be notified when pt dc so he can be present.
--- NOTE | 2019-03-03 16:18 | NUR ---
ASSUMED CARE AT 1530. PT GIVEN SHOWER. RESTING IN BED. VSS. SEE ASSESSMENT AND VITALS FOR OTHER DETAILS. CALL LIGHT WITHIN REACH, WILL CONTINUE PLAN OF CARE
[2019-03-04] VITALS (7 sets, daily range): BP systolic 92–172; BP diastolic 55–80
[2019-03-04 04:30] LABS: ALBUMIN 1.8 g/dL (3.4-5.0); CALCIUM 8.8 mg/dL (8.5-10.1); PHOSPHORUS* 4.1 mg/dL (2.5-4.9); POTASSIUM 4.4 mmol/L (3.5-5.1)
--- NOTE | 2019-03-04 05:32 | NUR ---
PT SLEPT MOST OF SHIFT. ASSESSMENT DOCUMENTED. MEDS GIVEN PER E-JAN. IV PATENT. PT REPORTED 10/10 PAIN BUT STATED NOTHING HELPS THE PAIN AT ALL AND THAT THE PAIN MEDICATIONS GIVEN HER NO RELIEF. PT REPOSITIONED ALLOWED. TEMP DIALYSIS PORT IN PLACE. WILL CONTINUE WITH PLAN OF CARE.
[2019-03-04 09:11] LABS: HEPATITIS B SURFACE AG Negative (Negative)
--- NOTE | 2019-03-04 11:14 | NUR ---
POULTRY PROCESSOR FAXED [facility] PATIENT ADMISSION SERVICES PACKET. CM WILL REMAIN AVAILABLE TO ASSIST AND FOLLOW NEEDED.
--- NOTE | 2019-03-04 15:31 | NUR ---
PATIENT HAS BEEN ALERT AND ORIENTED TODAY, TOLERATED DIALYSIS WELL TODAY. PAIN THAT IS CONSTANT PER PATIENT. VITAL SIGNS STABLE ON ROOM AIR. PATIENT IS REFUSING TO GET OUT OF BED OR TURN TODAY BUT IS SHIFTING AROUND IN THE BED. CALL LIGHT IS IN REACH, WILL PASS ON REPORT TO NEXT NURSE.
--- NOTE | 2019-03-04 17:19 | NUR ---
SW met with pt and provided update that now that the labs that were needed for referral to OP dialysis is complete, [facility] admissions has what they need and pt said that [facility] had called pt and pt . SW explained that [facility] should be available to accept pt as soon as [facility] provides final acceptance and once transportation is arranged. SW to continue to follow to assist with finalizing dc plan possible tomorrow for pt to dc to [facility] with HD at [facility]. (pending chair time confirmation)
--- NOTE | 2019-03-04 19:47 | NUR ---
PATIENT RESTING IN BED. PATIENT WORKED WITH PHYSICAL THERAPY THIS AFTERNOON. PATIENT HAS CONTINUED COMPLAINTS OF CHEST PAIN, TREATED PARITALLY WITH MEDICATION. PATIENT HAS GOOD APPETITE. PATIENT DENIES ANY NEEDS AT THIS TIME. CALL LIGHT WITHIN REACH.
[2019-03-05 04:00] VITALS: BP 134/65
--- NOTE | 2019-03-05 05:01 | NUR ---
PT SLEPT MOST OF SHIFT. ASSESSMENT DOCUMENTED. MEDS GIVEN PER E-MAR. IV PATENT. PAIN MEDS GIVEN PER E-MAR WITH LITTLE RELIEF PER PT. DIALYSIS CATH IN PLACE. WILL CONTINUE WITH PLAN OF CARE.
[2019-03-05 06:42] LABS: HEMATOCRIT 29.5 % (37.0-47.0); HEMOGLOBIN 9.9 gm/dL (12.0-15.0); MCH 30.1 pg (26.0-34.0); MCHC 33.4 g/dL (28.0-37.0); MCV 90.2 fL (80.0-100.0); MPV 7.6 fl. (7.2-11.1); RBC 3.27 mil/uL (4.20-5.00); RDW-CV 20.5 % (10.5-14.5); WBC 9.5 thou/uL (4.0-11.0)
[2019-03-05 06:53] LABS: POTASSIUM 4.4 mmol/L (3.5-5.1)
[2019-03-05 06:55] LABS: CREATININE 4.5 mg/dL (0.6-1.3)
[2019-03-05 09:28] VITALS: BP 148/64
--- NOTE | 2019-03-05 12:05 | NUR ---
VICKI received call from Odalys at [facility] confirming pt to be accepted to clinic for OP HD to begin tomorrow at 3:30 pm and pt to provide ride home at 7:00 pm. VICKI faxed most recent flow sheet to clinic ph [phone] fax [phone]. VICKI called and spoke with Sahronda from admissions of [facility] who confirmed they are able to accept pt today and they are able to provide ride to dialysis as pt is able to provide ride home until [employer] is arranged to provide transportation. VICKI called and spoke with pt Kalin to discuss dc plan and confirmed again about dialysis transportation responsibility. Pt in agreement with plan. VICKI discussed with Dr Brown and with pt nurse and with US who copied chart. Pt to be picked up at 3 pm to ride to [facility]. VICKI to fax final orders to [facility]. ph [phone] fax [phone]
[2019-03-05] MEDS ORDERED: SYNTHROID50 MCG PO (12:42)
[2019-03-05] MEDS ORDERED: HYDROCODON-ACE1 EAC7 PO (12:42)
[2019-03-05] MEDS ORDERED: IMDUR 60 MG TAB60 M1 PO (12:42)
[2019-03-05] MEDS ORDERED: HUMALOG100 UNIT/1 SUBQ (12:42)
[2019-03-05] MEDS ORDERED: EPOGEN2000 UNIT/ SUBQ (12:42)
[2019-03-05] MEDS ORDERED: SENNA PLUS TAB1 EACH PO (12:42)
[2019-03-05] MEDS ORDERED: ASPIRIN EC81 M1 PO (12:42)
[2019-03-05] MEDS ORDERED: RENVELA800 MG PO (12:42)
[2019-03-05] MEDS ORDERED: LANTUS100 UNIT/M SUBQ (12:42)
[2019-03-05] MEDS ORDERED: CYMBALTA30 MG PO (12:42)
[2019-03-05] MEDS ORDERED: CARDIZEM CD120 MG PO (12:42)
[2019-03-05] MEDS ORDERED: FERREX 150 PLU1 EAC1 PO (12:42)
[2019-03-05 13:12] VITALS: BP 148/64
[2019-03-05] MEDS ORDERED: HYDROCODONE-AP1 EAC6 PO (13:22)
--- NOTE | 2019-03-05 15:28 | NUR ---
PATIENT IS ALERT AND ORIENTED TODAY FLAT AFFECT BUT MUCH MORE PERSONABLE THAN THE LAST FEW DAYS. PATIENT STATES FEELING BETTER. PAIN TODAY THAT IS CHRONIC BUT SEEMS TO BE MORE CONTROLLED THAN USUAL. PATIENT [facility] AWARE AND LEFT WITH PATIENT. PATIENT LEFT VIA WHEEL CHAIR TO FACILITY IN STABLE CONDITION. REPORT CALLED AND GIVEN TO NURSE TAKING PATIENT.
[2019-03-05 15:36] VITALS: BP 148/64
== END 2019-03-05 15:38 | DRG 871 ==
LOC: M.3W 17:45 → M.2W 17:45 → M.ICU 17:45 → M.2W 21:32 → M.ICU 23:50 → M.3W 02-20 13:08
PROVIDERS: Family Medicine; Internal Medicine; Internal Medicine Gastroenterology; Internal Medicine Nephrology; Registered Nurse; ADMIT Internal Medicine
PROC: 30233N1 Transfusion of Nonautologous Red Blood Cells into Peripheral Vein, Percutaneous Approach (ICD-10-PCS; principal; 2019-02-16)
PROC: 5A12012 Performance of Cardiac Output, Single, Manual (ICD-10-PCS; principal; 2019-02-16)
PROC: 3E1M39Z Irrigation of Peritoneal Cavity using Dialysate, Percutaneous Approach (ICD-10-PCS; 2019-02-17)
PROC: B5181ZA Fluoroscopy of Superior Vena Cava using Low Osmolar Contrast, Guidance (ICD-10-PCS; 2019-03-03)
PROC: 5A1D70Z Performance of Urinary Filtration, Intermittent, Less than 6 Hours Per Day (ICD-10-PCS; 2019-03-03)
PROC: 0JH63XZ Insertion of Tunneled Vascular Access Device into Chest Subcutaneous Tissue and Fascia, Percutaneous Approach (ICD-10-PCS; 2019-03-03)
PROC: 02HV33Z Insertion of Infusion Device into Superior Vena Cava, Percutaneous Approach (ICD-10-PCS; 2019-03-03)
PROC: B548ZZA Ultrasonography of Superior Vena Cava, Guidance (ICD-10-PCS; 2019-03-03)
PROC: 5A1D70Z Performance of Urinary Filtration, Intermittent, Less than 6 Hours Per Day (ICD-10-PCS; 2019-03-04)
DX: A41.9 Sepsis, unspecified organism (principal); I21.4 Non-ST elevation (NSTEMI) myocardial infarction; N18.6 End stage renal disease; J96.20 Acute and chronic respiratory failure, unspecified whether with hypoxia or hypercapnia; G93.41 Metabolic encephalopathy; J18.9 Pneumonia, unspecified organism; I50.33 Acute on chronic diastolic (congestive) heart failure; I13.2 Hypertensive heart and chronic kidney disease with heart failure and with stage 5 chronic kidney disease, or end stage renal disease; N25.81 Secondary hyperparathyroidism of renal origin; I62.9 Nontraumatic intracranial hemorrhage, unspecified; Z66 Do not resuscitate; F32.9 Major depressive disorder, single episode, unspecified; E11.51 Type 2 diabetes mellitus with diabetic peripheral angiopathy without gangrene; E11.22 Type 2 diabetes mellitus with diabetic chronic kidney disease; J44.9 Chronic obstructive pulmonary disease, unspecified; E87.5 Hyperkalemia; J32.9 Chronic sinusitis, unspecified; R07.89 Other chest pain; G89.29 Other chronic pain; D63.1 Anemia in chronic kidney disease; I25.119 Atherosclerotic heart disease of native coronary artery with unspecified angina pectoris; I08.0 Rheumatic disorders of both mitral and aortic valves; E83.39 Other disorders of phosphorus metabolism; E03.9 Hypothyroidism, unspecified; K59.09 Other constipation; K75.9 Inflammatory liver disease, unspecified; I65.21 Occlusion and stenosis of right carotid artery; Z86.73 Personal history of transient ischemic attack (TIA), and cerebral infarction without residual deficits; Z87.891 Personal history of nicotine dependence; Z79.899 Other long term (current) drug therapy; Z88.0 Allergy status to penicillin; Z82.49 Family history of ischemic heart disease and other diseases of the circulatory system; Z83.3 Family history of diabetes mellitus

== ENCOUNTER 2019-03-12 07:07 | Inpatient (IN) | payer MEDICAID ==
[~2019-03-12] VITALS: Ht 152.4 cm; Wt 54.8 kg
[2019-03-12] VITALS (7 sets, daily range): BP systolic 71–124; BP diastolic 42–76
--- NOTE | ~2019-03-12 | CON ---
[address] [address] CONSULTATION Name: AUBREE ECKERT Room: [address] IN M.R.#: [id number] Admission: 03/12/19 Attend Phys: William Deleon MD Discharge: 03/12/19 Date of : 57 Report #: [id number] THIS REPORT FOR: //name// CC: William Colin NEPHROLOGY CONSULTATION CONSULTING PHYSICIAN: William Deleon M.D. REASON FOR CONSULTATION: End-stage kidney disease. HISTORY OF PRESENT ILLNESS: A 64-year-old female who was hospitalized here recently, had a prolonged hospital stay with rpu-XR-[id number] myocardial infarction, stroke with hemorrhagic transformation and GI bleed. She was admitted after being found to have significant anemia with hemoglobin of 6.6. She is currently receiving a blood transfusion. She denies any hematemesis, nosebleeds, melena or bright red blood per rectum. She presently appears to be comfortable and does not have any significant complaints. REVIEW OF SYSTEMS: Constitutional, psych, heme, eyes, ENT, respiratory, cardiac, GI, and endocrine all negative, except as documented above. PAST MEDICAL HISTORY: End-stage kidney disease, diabetes type 2, hypertension, osteoporosis, history of bilateral fem-pop in 2002, history of cataracts, right hip surgery and history of DVT. FAMILY HISTORY: Positive for diabetes. SOCIAL HISTORY: Former smoker. MEDICATIONS: Reviewed. PHYSICAL EXAMINATION: VITAL SIGNS: Blood pressure 119/75, pulse 102, respirations 16 and temperature 36.6. GENERAL: In no acute distress. EYES: Open. EARS: Externally normal. CARDIOVASCULAR: Regular rate. LUNGS: No crackles. ABDOMEN: Soft, nontender and nondistended. MUSCULOSKELETAL: Nontender. PSYCH: Awake, alert. LABORATORY DATA: White cell count 12, hemoglobin 6.6 and platelets 375,000. Sodium 137, potassium 6.3, chloride 99, bicarbonate 31, BUN 25, creatinine 3.9, [place] [address] CONSULTATION Name: AUBREE ECKERT Room: [address]#: [id number] Admission: 03/12/19 Attend Phys: William Deleon MD Discharge: 03/12/19 Date of : 57 Report #: [id number] glucose 300 and calcium 8.7. Albumin 2.2. ASSESSMENT: 1. End-stage kidney disease, on hemodialysis Saturday, Saturday and Saturday at the [facility]. She was previously on peritoneal dialysis, but was transitioned to hemodialysis to accommodate her transfer to rehabilitation as her was not able to take care of her at home. She had a tunneled dialysis catheter placed on 03/03/2019 and is normally followed by Dr. Aldana as an outpatient for her peritoneal dialysis. 2. Anemia, multifactorial, with recent evaluation for this and suspected gastrointestinal bleed, currently being transfused. 3. History of cerebrovascular accident with hemorrhagic transformation, coronary artery disease, diabetes type 2, hypoalbuminemia and history of cardiac arrest during recent hospitalization. 4. Right carotid disease with plan for carotid endarterectomy at some point. 5. Hyperparathyroidism, on Renvela. 6. Previously on peritoneal dialysis. PLAN: 1. She is hyperkalemic today despite dialyzing yesterday, but her dialysis was cut short somewhat yesterday because of issues related to pain. She is receiving transfusion and also has some mild pulmonary edema on her chest x-ray. We will set up for a 2-hour dialysis session today on a low-potassium dialysate. She, of note, is not having any constipation. We will also add a 2-gram dietary potassium restriction. 2. Pulmonary edema on chest x-ray. We will ultrafilter with dialysis today, as she is receiving transfusion. We will also add a 1.5 L per day fluid restriction. 3. Anemia, severe. We will defer further assessment and evaluation to Medicine team. If the etiology remains uncertain, may need additional input from Hematology and additional imaging, such as a CT abdomen to ensure she does not have a retroperitoneal source of this bleed. Again, we will defer additional evaluation and management of this to Internal Medicine. 4. We will have PD catheter flushed and will have this done weekly. 5. Routine maintenance dialysis tomorrow. Thank you for requesting my opinion in the care and management of this patient. By: [id number] Sands MD /nt
[~2019-03-12 07:07] MED LIST changes: +ASPIRIN EC81 M1 PO; +CARDIZEM CD120 MG PO; +CYMBALTA30 MG PO; +EPOGEN2000 UNIT/ SUBQ; +FERREX 150 PLU1 EAC1 PO; +HUMALOG100 UNIT/1 SUBQ; +HYDROCODON-ACE1 EAC7 PO; +IMDUR 60 MG TAB60 M1 PO; +LANTUS100 UNIT/M SUBQ; +RENVELA800 MG PO; +SENNA PLUS TAB1 EACH PO; +SYNTHROID50 MCG PO
[2019-03-12 07:39] LABS: HEMATOCRIT 20.4 % (37.0-47.0); MCH 29.9 pg (26.0-34.0); MCHC 32.5 g/dL (28.0-37.0); MCV 92.2 fL (80.0-100.0); NUCLEATED RBCS 0 /100WBC; PLATELET COUNT* 375 thou/uL (150-400); RBC 2.21 mil/uL (4.20-5.00); RDW-CV 20.8 % (10.5-14.5)
[2019-03-12 07:40] LABS: HEMOGLOBIN 6.6 gm/dL (12.0-15.0)
[2019-03-12 07:58] LABS: ALBUMIN 2.2 g/dL (3.4-5.0); ALKALINE PHOSPHATASE 136 U/L (46-116); ANION GAP 7 mmol/L (7-16); BUN 25 mg/dL (7-18); CALCIUM 8.7 mg/dL (8.5-10.1); CHLORIDE 99 mmol/L (98-107); CO2 31 mmol/L (21-32); CREATININE 3.9 mg/dL (0.6-1.3); GLUCOSE 300 mg/dL (70-99); LIPASE 52 U/L (73-393); NT-PRO BRAIN NAT PEPTIDE > 35000 pg/mL (<300); SGOT 34 U/L (15-37); SGPT 21 U/L (30-65); SODIUM 137 mmol/L (136-145); TOTAL BILIRUBIN 0.3 mg/dL (<0.1-1.0); TOTAL PROTEIN 6.5 g/dL (6.4-8.2)
[2019-03-12 07:59] LABS: APTT 28.7 Seconds (25.0-31.3); INR 1.2; PROTIME 11.9 Seconds (9.20-11.50)
[2019-03-12 08:04] LABS: POTASSIUM 6.3 mmol/L (3.5-5.1)
[2019-03-12 08:20] LABS: ABSOLUTE LYMPHOCYTES 1.4 thou/uL (0.8-5.3); ABSOLUTE NEUTROPHILS 10.6 thou/uL (1.6-8.1); ATYPICAL LYMPHS 5 %; MYELOCYTES 1 %
[2019-03-12 08:21] LABS: ANISOCYTOSIS 2+; PLATELET ESTIMATE ADEQUATE
[2019-03-12 13:58] LABS: MCH 30.4 pg (26.0-34.0); MCHC 33.6 g/dL (28.0-37.0); MCV 90.4 fL (80.0-100.0); MPV 7.4 fl. (7.2-11.1); RBC 2.21 mil/uL (4.20-5.00); RDW-CV 19.5 % (10.5-14.5); WBC 8.4 thou/uL (4.0-11.0)
[2019-03-12 14:01] LABS: HEMOGLOBIN 6.7 gm/dL (12.0-15.0)
[2019-03-12 14:12] LABS: ALBUMIN 1.9 g/dL (3.4-5.0); CALCIUM 8.3 mg/dL (8.5-10.1); POTASSIUM 5.6 mmol/L (3.5-5.1); TOTAL BILIRUBIN 0.3 mg/dL (<0.1-1.0)
--- NOTE | 2019-03-12 18:23 | EKG ---
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 : 1955 Requested By: Dilia Vega Order Number: [id number] MD: Zachary Awad Measurements Intervals [place] Rate: 109 P: 31 RI: 164 QRS: 80 QRSD: 120 T: 199 QT: 379 QTc: 511 Interpretive Statements Sinus tachycardia Nonspecific intraventricular conduction delay Repol abnrm, severe global ischemia (LM/MVD) Baseline wander in lead(s) V6 Compared to ECG 02/24/2019 11:47:46 Intraventricular conduction delay now present Possible ischemia now present Sinus rhythm no longer present Left ventricular hypertrophy no longer present Electronically Signed On 03-12-2019 18:23:38 CDT by Zachary Awad [email or web address] <ELECTRONICALLY SIGNED> By: Zachary Awad MD, FAC 03/12/19 1823 1 1 Zachary wAad MD, [facility] /EPI
== END 2019-03-12 15:29 ==
LOC: M.ERS 07:07 → M.TBA-ER 08:55 → M.2W 10:19
PROVIDERS: Personal Emergency Response Attendant; ADMIT Internal Medicine
PROC: 30233N1 Transfusion of Nonautologous Red Blood Cells into Peripheral Vein, Percutaneous Approach (ICD-10-PCS; principal; 2019-03-12)
DX: I21.4 Non-ST elevation (NSTEMI) myocardial infarction (principal); N18.6 End stage renal disease; I13.2 Hypertensive heart and chronic kidney disease with heart failure and with stage 5 chronic kidney disease, or end stage renal disease; I50.9 Heart failure, unspecified; Z51.5 Encounter for palliative care; E11.22 Type 2 diabetes mellitus with diabetic chronic kidney disease; M81.0 Age-related osteoporosis without current pathological fracture; J44.9 Chronic obstructive pulmonary disease, unspecified; D64.9 Anemia, unspecified; I65.29 Occlusion and stenosis of unspecified carotid artery; G89.29 Other chronic pain; I34.0 Nonrheumatic mitral (valve) insufficiency; I25.10 Atherosclerotic heart disease of native coronary artery without angina pectoris; E21.3 Hyperparathyroidism, unspecified; E11.65 Type 2 diabetes mellitus with hyperglycemia; E87.5 Hyperkalemia; Z79.84 Long term (current) use of oral hypoglycemic drugs; Z86.73 Personal history of transient ischemic attack (TIA), and cerebral infarction without residual deficits; Z79.4 Long term (current) use of insulin; Z88.5 Allergy status to narcotic agent; Z88.0 Allergy status to penicillin; I25.2 Old myocardial infarction; Z86.718 Personal history of other venous thrombosis and embolism; Z98.49 Cataract extraction status, unspecified eye; Z83.3 Family history of diabetes mellitus; Z99.2 Dependence on renal dialysis; Z82.49 Family history of ischemic heart disease and other diseases of the circulatory system; Z87.891 Personal history of nicotine dependence